=== PATIENT | male | born 1995 | race Caucasian/White ===

== ENCOUNTER 2019-06-16 07:17 | Emergency (ER) | payer SELFPAY ==
[2019-06-16 07:20] VITALS: BP 137/70; PULSE 100; RESP 20; TEMP 36.4; O2SAT 100
--- NOTE | 2019-06-16 07:50 | ED.GENADULT ---
HPI - General Adult General Chief complaint: Upper Respiratory Infection Stated complaint: sore throat fever Source: patient Mode of arrival: ambulatory Limitations: no limitations History of Present Illness HPI narrative: For the last 3 days has been waking up with a fullness in his upper chest which is relieved with burping up a burning liquid. Throughout the day he has similar burping episodes which have kept him from going to work yesterday and today. He's never had this before. Nothing makes it better or brings it on. In addition, for the past month he's had body aches, a sore throat and cough. He notices SOB with exertion. Related Data Home Medications Medication Instructions Recorded Confirmed No Home Medications 06/16/19 06/16/19 Review of Systems Constitutional: Constitutional: Denies chills and Denies fever(s) ENT: Denies nasal congestion Comments: lightheaded at times x 3 days. Cardiovascular: Cardiovascular: Denies chest pain Respiratory: Respiratory: Reports no additional respiratory complaints Gastrointestinal: Gastrointestinal: Denies abdominal pain, Denies heartburn, Denies diarrhea and Denies nausea Genitourinary: Genitourinary: Denies dysuria Musculoskeletal: Musculoskeletal: Reports no additional musculoskeletal complaints Integumentary/Breasts: Skin/Breast: Denies rash Psychiatric: Psychiatric: Reports anxiety Comments: anxiety does not keep him from functioning/going to work. 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 Cardio: Rhythm: regular rhythm GI: GI Palp: Yes Soft to palpation and No Guarding due to palpation present (GI) Other: minor epigastric tenderness Course Vital Signs Vital signs: Vital Signs Temperature 36.4 C 06/16/19 07:20 Pulse Rate 100 06/16/19 07:20 Respiratory Rate 20 06/16/19 07:20 Blood Pressure 137/70 06/16/19 07:20 Pulse Oximetry 100 06/16/19 07:20 Temperature 36.4 C 06/16/19 07:20 Pulse Rate 100 06/16/19 07:20 Respiratory Rate 20 06/16/19 07:20 Blood Pressure 137/70 06/16/19 07:20 Pulse Oximetry 100 06/16/19 07:20 Medical Decision Making MDM Narrative Medical decision making narrative: Discussed GERD and measures he can take to reduce. Differential Diagnosis Differential Diagnosis: Asthma, allergies, nausea and vomiting. Vital Signs Vital Signs: Vital Signs Temperature 36.4 C 06/16/19 07:20 Pulse Rate 100 06/16/19 07:20 Respiratory Rate 20 06/16/19 07:20 Blood Pressure 137/70 06/16/19 07:20 Pulse Oximetry 100 06/16/19 07:20 Temperature 36.4 C 06/16/19 07:20 Pulse Rate 100 06/16/19 07:20 Respiratory Rate 20 06/16/19 07:20 Blood Pressure 137/70 06/16/19 07:20 Pulse Oximetry 100 06/16/19 07:20 Lab Data Labs: Lab Results 06/16/19 Range/Units 07:36 Influenza Type A Ag Negative (Negative) Influenza Type B Ag Negative (Negative) Group B Strep Antigen Negative Discharge Plan Discharge Clinical Impression: GERD (gastroesoph
[2019-06-16 08:01] LABS: Influenza Control Valid (Valid)
== END 2019-06-16 08:17 | disposition home or self-care (01) ==
PROVIDERS: Emergency Provider Family Medicine; PCP Family Medicine
DX: K21.9 Gastro-esophageal reflux disease without esophagitis (principal)
CPT/HCPCS: 87081; 87804; 87880; 99282; 99283

== ENCOUNTER 2019-08-13 20:27 | Emergency (ER) | payer SELFPAY ==
--- NOTE | ~2019-08-13 | XR_ITS ---
XR hand RT min 3V, XR forearm RT 2V 08/13/2019 21:04 (accession [id number]), 08/13/2019 21:03 (accession [id number]) Indication: Right hand and arm pain after punching inanimate objects. Procedure: 4 views right hand and 2 views right forearm Comparison: No prior studies for comparison. Findings: There are healed right fourth and fifth metacarpal fractures. There is a small ossific dens ity along the ulnar aspect of the fifth carpometacarpal joint on the oblique view, suspicious for acu te avulsion fracture. Scaphoid intact. Radius and ulna within normal limits. No focal soft tissue abn ormality. Impression: 1: Small ossific density along the ulnar aspect of the fifth carpometacarpal joint on the oblique vie w, suspicious for acute avulsion fracture. 2: Healed right fourth and fifth metacarpal fractures. Reviewed, dictated and finalized at location A. Impression: 1: Small ossific density along the ulnar aspect of the fifth carpometacarpal charley int on the oblique view, suspicious for acute avulsion fracture. 2: Healed right fourth and fifth metacarpal fractures. Impression: 1: Small ossific density along the ulnar aspect of the fifth carpometacarpal charley int on the oblique view, suspicious for acute avulsion fracture. 2: Healed right fourth and fifth metacarpal fractures.
[2019-08-13 20:30] VITALS: BP 121/77; PULSE 72; RESP 20; TEMP 36.8; O2SAT 99
--- NOTE | 2019-08-13 20:38 | ED.UPPEXIN ---
HPI - Extremity Injury (Upper) General Chief Complaint: Extremity Injury, Upper Stated Complaint: rt arm pain Source: patient Mode of arrival: ambulatory Limitations: no limitations History of Present Illness HPI narrative: 23-year-old man comes in today complaining of pain over his right ulnar wrist and pain over his right 4th and 5th metacarpals. He also has abrasions over his knuckles on the right. He states that he punched issue at approximately noon today. He denies any numbness Or other injury. He denies prior hand injuries. 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 complaint: injury to: right, wrist and hand Other Extremity Injury: Right: hand and wrist Other injuries: none Handedness: right Place: home Severity: moderate Relieving factors: none Exacerbating factors: none, movement of extremity and other ( Palpation) Context: direct blow Associated symptoms: denies other symptoms Treatments prior to arrival: NSAIDS Related Data Home Medications Medication Instructions Recorded Confirmed No Home Medications 06/16/19 08/13/19 Allergies Allergy/AdvReac Type Severity Reaction Status Date / Time codeine Allergy Rash Verified 08/13/19 20:38 Review of Systems Constitutional: Constitutional: Denies chills and Denies fever(s) Eyes: Eyes: Denies change in vision and Denies photophobia ENT: Denies dysphagia, Denies nasal congestion and Denies sore throat Cardiovascular: Cardiovascular: Denies chest pain and Denies radiating jaw, neck or arm pain Respiratory: Respiratory: Denies cough, Denies dyspnea and Denies wheezing Gastrointestinal: Gastrointestinal: Denies abdominal pain, Denies nausea and Denies vomiting Neurologic: Denies vertigo, Denies dizziness and Denies syncope Psychiatric: Psychiatric: Denies anxiety and Denies depression Hematologic/Lymphatic: Hematologic/Lymphatic: Denies easy bleeding and Denies easy bruising Allergic/Immunologic: Allergic/Immunologic: Denies lip swelling and Denies wheezing PMFSH Past Medical History Medical History (Updated 08/13/19 @ 21:24 by Gregory Vazquez MD) Patient denies medical problems Surgical History Surgical History (Updated 08/13/19 @ 20:49 by Gregory Vazquez MD) History of dental surgery History of tonsillectomy Leg fracture, left Wrist fracture Family History Family History (Updated 06/16/19 @ 07:59 by Gregory Sawant MD) Mother Diabetes mellitus Social History Social History (Updated 08/13/19 @ 20:50 by Gregory Vazquez MD) Years smoked: 10 Smoking status: Current every day smoker Alcohol intake: never Alcohol use details: occasional Substance use type: marijuana Other substance usage details: once weekly Living arrangements: with family 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 Gender identity (if verbalized by the patient): Male Exam Const: General: healthy appearing and alert Orientation/consciousness: patient oriented x3 Limitations: no limitations Other: Mild acute distress HENMT: Mouth: Yes moist mucous membranes Throat: posterior oropharynx normal and uvula midline Eyes: Conjunctivae: conjunctivae normal Pupils: Equal, round and reactive pupils present EOM: EOMs intact bilaterally Resp: Effort & Inspection: normal respiratory effort and not labored Auscultation: no rales, no rhonchi and wheezes expiratory wheezes and scattered wheezes Cardio: Rate: regular rate Rhythm: regular rhythm Heart sounds: no murmurs Skin: General skin exam: normal color, no jaundice and no pallor Rashes: no rashes Neuro: General: patient oriented x3, moves all extremities, no focal motor deficits and CN's II-XI intact bilaterally Speech: normal speech Extrem: General: normal to inspection and no clubbing, cyanosis or edema Other: Several abrasions over the MCPs and the dorsum of the right hand. There is ecchymosis and swelling overlying the distal 4th metacarpal with minimal rotation o
[2019-08-13 21:30] VITALS: RESP 20
== END 2019-08-13 21:30 | disposition home or self-care (01) ==
PROVIDERS: Emergency Provider Emergency Medicine
DX: S60.511A Abrasion of right hand, initial encounter (principal); S60.221A Contusion of right hand, initial encounter; W22.8XXA Striking against or struck by other objects, initial encounter
CPT/HCPCS: 29125; 73090; 73130; 99282; 99283

== ENCOUNTER 2020-09-07 12:19 | Emergency (ER) | payer OTHER, SELFPAY ==
[2020-09-07 12:30] VITALS: BP 140/69; PULSE 87; RESP 16; TEMP 36.7; O2SAT 97
--- NOTE | 2020-09-07 12:30 | ED.SKABFB ---
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 He said he had been poking at it at home trying to get something out. complaint: foreign body Onset (ago): day(s) (3) Location: L hand (index finger acuna aspect proximal phalanx) Severity: moderate Quality: aching Pain Consistency: constant Relieving factors: none Exacerbating factors: none Associated symptoms: denies other symptoms Treatments prior to arrival: none Related Data Allergies Allergy/AdvReac Type Severity Reaction Status Date / Time codeine Allergy Rash Verified 08/13/19 20:38 Review of Systems Review of Systems: All systems reviewed & are unremarkable except as noted in HPI and below Constitutional: Constitutional: Denies chills and Denies fever(s) PMFSH Past Medical History Medical History Patient denies medical problems Surgical History Surgical History History of dental surgery History of tonsillectomy Leg fracture, left Wrist fracture Family History Family History Mother Diabetes mellitus Social History Social History (Updated 09/07/20 @ 12:31 by Jeremie Cervantes MD) Smoking packs per day: 2 Smoking cigarettes per day: 40.0 Years smoked: 10 Smoking pack-years: 20.00 Smoking status: Current every day smoker Alcohol intake: never Substance use type: marijuana Other substance usage details: once weekly 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 Gender identity (if verbalized by the patient): Male Exam Const: General: healthy appearing and no acute distress Nutritional Appearance: well nourished Orientation/consciousness: patient oriented x3 HENMT: Head: normal to inspection Ears: external ears normal Eyes: Conjunctivae: conjunctivae normal Pupils: Equal, round and reactive pupils present EOM: EOMs intact bilaterally Neck: Neck: normal visual inspection Resp: Effort & Inspection: normal respiratory effort Auscultation: clear to auscultation bilaterally Cardio: Rate: regular rate Rhythm: regular rhythm GI: Auscultation: normal bowel sounds Back/Spine/Pelvis: Cervical Spine: cervical ROM normal Thoracic/Lumbar Spine: thoraco-lumbar ROM normal Skin: General skin exam: normal color Rashes: no rashes Wounds: wounds noted Other: Patient has a hematoma on his left palmar aspect of his proximal phalanx with moderate tenderness and some sanguinous discharge. I am unable to see any possible foreign body. There is some swelling but no fluctuance appreciated. Neuro: General: patient oriented x3, moves all extremities, no meningeal signs and no focal motor deficits Speech: normal speech Gait exam (Neuro): Normal gait present Extrem: General: normal to inspection and no clubbing, cyanosis or edema Psych: Appearance: grossly normal and well kempt Mental Status: mental status grossly normal Affect: normal affect Attitude: cooperative Thought content: Yes Normal thought content present Procedures Abscess I/D hand: Date of Incision: 09/07/20 Side (if applicable): left Local Anesthetic: lidocaine 1% Amount of anesthesia used (mL): 3 Technique: incised with #11 blade Irrigation: No Packing used?: none I&D Results: Blood and Other ( No foreign body could be found) Discharge Plan Discharge Clinical Impression: Abscess of skin or subcutaneous tissue Qualifiers: Site of cutaneous abscess: extremity Site of cutaneous abscess of extremity: hand
[2020-09-07] MEDS: LIDOCAINE HCL 1% LOCAL INJ 20 ML VIAL INFILTRATE (12:46)
[2020-09-07 12:47] VITALS: PULSE 85; RESP 14; O2SAT 98
== END 2020-09-07 12:50 | disposition home or self-care (01) ==
PROVIDERS: Emergency Provider Emergency Medicine
DX: L02.512 Cutaneous abscess of left hand (principal)
CPT/HCPCS: 26010; 99283; A9270

== ENCOUNTER 2020-09-20 09:39 | Emergency (ER) | payer OTHER, SELFPAY ==
[2020-09-20 10:05] VITALS: BP 125/86; PULSE 96; RESP 16; TEMP 37; O2SAT 96
--- NOTE | 2020-09-20 10:18 | PC.NURSE ---
during physical assessment with erp, it was noted that patient seemed very anxious and tearful. pt explains he has had some recent stress and states ganesh just lost everything . pt denies suicidal or homicidal ideations and denies carrying any weapons at this time
--- NOTE | 2020-09-20 10:24 | ED.URI ---
HPI - URI/Sore Throat General Chief Complaint: Upper Respiratory Infection Stated Complaint: cough and coughing up mucus Source: patient Mode of arrival: ambulatory Limitations: no limitations History of Present Illness HPI Narrative: 24 yo male who presents with cough. He states that he smokes 3-4 ppd, and doesnt feel ill. However he said if he doesnt get a covid test his landlord is going to kick him out. He states he is depressed, but denies SI or HI. he has some mild aches, but states that is pretty normal for him, and the low energy level is due to his chronic depression. MD elicited complaint: cough Pertinent past history: COPD Consistency: constant Severity: mild Description of mucous: green Able to tolerate fluids by mouth: Yes Exacerbating factors: nothing Relieving factors: nothing Associated symptoms: denies other symptoms and shortness of breath Treatments prior to arrival: none Related Data Home Medications Medication Instructions Recorded Confirmed No Home Medications 09/20/20 09/20/20 Allergies Allergy/AdvReac Type Severity Reaction Status Date / Time codeine Allergy Rash Verified 08/13/19 20:38 Review of Systems Constitutional: Constitutional: Denies chills, Reports fatigue, Denies fever(s) and Denies weakness Eyes: Eyes: Reports no additional eye complaints ENT: Reports system reviewed and no additional complaints, except as documented Cardiovascular: Cardiovascular: Reports no additional cardiovascular complaints Respiratory: Respiratory: Denies chest congestion, Reports cough, Denies dyspnea and Denies wheezing Gastrointestinal: Gastrointestinal: Reports no additional gastrointestinal complaints Genitourinary: Genitourinary: Reports no additional male genitourinary complaints Neurologic: Reports system reviewed and no additional complaints, except as documented Psychiatric: Psychiatric: Reports no additional psychiatric complaints Endocrine: Endocrine: Reports no additional endocrine complaints Hematologic/Lymphatic: Hematologic/Lymphatic: Reports no additional hematologic/lymphatic complaints Allergic/Immunologic: Allergic/Immunologic: Reports no additional allergic/immunologic complaints 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 Gender identity (if verbalized by the patient): Male Exam Const: General: healthy appearing, no acute distress and alert Nutritional Appearance: well nourished Orientation/consciousness: patient oriented x3 Eyes: Pupils: Equal, round and reactive pupils present Neck: Neck: normal visual inspection Chest: Chest palpation & inspection: normal inspection of the chest Resp: Effort & Inspection: normal respiratory effort Auscultation: wheezes (occasional) Cardio: Rate: regular rate GI: GI Palp: Yes Soft to palpation, No Tenderness to palpation present (GI) and No Guarding due to palpation present (GI) Back/Spine/Pelvis: Back: no CVA tenderness Skin: General skin exam: normal color Rashes: no rashes Neuro: General: patient oriented x3 and moves all extremities Extrem: General: normal to inspection Psych: Appearance: disheveled Affect: Anxious affec
[2020-09-20 10:50] LABS: SARS-CoV-2 Ag Negative (Negative)
[2020-09-20 11:01] VITALS: PULSE 90; RESP 15; O2SAT 97
== END 2020-09-20 11:03 | disposition home or self-care (01) ==
PROVIDERS: Emergency Provider Emergency Medicine
DX: R05 Cough (principal); Z20.822 Contact with and (suspected) exposure to COVID-19
CPT/HCPCS: 87426; 99282; 99283; C9803

== ENCOUNTER 2021-12-31 07:59 | Emergency (ER) | payer OTHER, SELFPAY ==
--- NOTE | ~2021-12-31 | XR_ITS ---
EXAMINATION: XR chest 2V DATE: 12/31/2021 08:29 INDICATION: Right upper chest pain. Cough. Shortness of breath. TECHNIQUE: Frontal and lateral views of the chest were obtained. COMPARISON: None. FINDINGS: The chest demonstrates clear lungs without pneumonia, pleural effusion, or pneumothorax. Th e heart size is normal. IMPRESSION: 1. No acute cardiopulmonary disease. Reviewed, dictated and finalized at location A.
[2021-12-31 08:05] VITALS: BP 133/80; PULSE 102; RESP 18; TEMP 36.4; O2SAT 96
--- NOTE | 2021-12-31 08:16 | ED.CHESTPAIN ---
HPI - Chest Pain General Chief Complaint: Chest Pain Stated Complaint: CHEST PAIN DIZZY Time Seen by Provider: 12/31/21 08:16 Source: patient and RN notes reviewed Mode of arrival: ambulatory Limitations: no limitations History of Present Illness HPI narrative: Patient states that he has been having some chest pressure. He continues smoke 3 packs per day. He says he has a history of COPD and that he has run out of his inhalers. complaint: chest discomfort Onset (ago): day(s) (6) Timing of current episode: constant Prior episodes: No Onset: during rest Pain location: other ( Entire chest) Pain radiation: none Severity: mild Quality: heaviness Relieving factors: nothing Exacerbating factors: nothing Context: recent illness Associated symptoms: fever and cough Treatment prior to arrival: none Risk Factors Coronary artery disease risk factors: smoking history Thoracic aortic dissection risk factors: none Related Data Allergies Allergy/AdvReac Type Severity Reaction Status Date / Time codeine Allergy Rash Verified 12/31/21 08:13 Penicillins Allergy Unknown Verified 12/31/21 08:13 Review of Systems Review of Systems: All systems reviewed & are unremarkable except as noted in HPI and below Constitutional: Constitutional: Reports chills and Reports fever(s) PMFSH Past Medical History Medical History Patient denies medical problems Surgical History Surgical History History of dental surgery History of tonsillectomy Leg fracture, left Wrist fracture Family History Family History Mother Diabetes mellitus Social History Social History Smoking packs per day: 3 Smoking cigarettes per day: 60.0 Years smoked: 10 Smoking pack-years: 30.00 Smoking status: Current every day smoker Alcohol intake: never Alcohol use details: occasional Substance use type: marijuana Other substance usage details: once weekly 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 Gender identity (if verbalized by the patient): Male Exam Const: General: healthy appearing, no acute distress and alert Nutritional Appearance: well nourished Orientation/consciousness: patient oriented x3 Limitations: no limitations HENMT: Head: normal to inspection Ears: external ears normal Eyes: Conjunctivae: conjunctivae normal Pupils: Equal, round and reactive pupils present EOM: EOMs intact bilaterally Neck: Neck: normal visual inspection Resp: Effort & Inspection: normal respiratory effort Auscultation: rhonchi throughout Cardio: Rate: regular rate Rhythm: regular rhythm Heart sounds: no murmurs GI: GI Palp: Yes Soft to palpation and No Tenderness to palpation present (GI) Auscultation: normal bowel sounds Back/Spine/Pelvis: Cervical Spine: cervical ROM normal Thoracic/Lumbar Spine: thoraco-lumbar ROM normal Skin: General skin exam: normal color Rashes: no rashes Neuro: General: patient oriented x3, moves all extremities, no focal motor deficits and CN's II-XI intact bilaterally Speech: normal speech Gait exam (Neuro): Normal gait present Extrem: General: normal to inspection and no clubbing, cyanosis or edema Psych: Mental Status: mental status grossly normal Affect: normal affect Attitude: cooperative Course Course Emergency Course: patient improved after 4 puffs albuterol inhaler through a spacer. He is given 125 mg of Solu-Medrol. He is encouraged to get his inhalers filled and follow up with his primary care for smoking cessation and further treatment of his COPD. Vital Signs Vital signs: Vital Signs Temperature 36.4 C L 12/31/21 08:05 Pulse Rate 102 H 12/31/21 08:05 Respiratory Rate 18 12/31/21 08:05 Blood Pressure 133/80 12/31/21 08:05 Pulse Oximetry 96
--- NOTE | 2021-12-31 08:19 | ECG_ITS ---
Measurements Intervals [place] Rate: 104 P: 117 SC: 132 QRS: 88 QRSD: 96 T: 186 QT: 349 QTc: 459 Interpretive Statements SINUS TACHYCARDIA NONSPECIFIC ST-T CHANGES NO PREVIOUS ECG AVAILABLE FOR COMPARISON Electronically Signed On 12-31-2021 20:05:04 CDT by Ashley Vogt M.D.
[2021-12-31 08:51] LABS: Hematocrit 47.1 % (40.0-54.0); Hemoglobin 15.9 g/dL (14.0-18.0); Immature Platelet Fraction Pct 16.9 % (1.0-7.0); Mean Corpuscular HGB Conc 33.8 g/dL (32.0-36.0); Mean Corpuscular Volume 88.9 fL (78.0-102.0); Mean Platelet Volume 12.6 fl (8.7-11.0); Platelet Count Result 90 K/mm3 (150-420); Red Cell Distribution Width 12.6 % (11.6-14.4); White Blood Count 5.6 K/mm3 (4.8-10.8)
[2021-12-31 09:03] VITALS: BP 129/74; PULSE 82; RESP 16; O2SAT 97
[2021-12-31 09:08] LABS: Lactic Acid Reflex 0.8 mmol/L (0.4-2.0)
[2021-12-31 09:11] LABS: Alanine Aminotransferase 16 U/L (16-63); Alkaline Phosphatase 73 U/L (46-116); Anion Gap 9 mmol/L (8-16); Aspartate Amino Transferase 15 U/L (15-37); Blood Urea Nitrogen 12 mg/dL (7-18); Calcium 9.4 mg/dL (8.5-10.1); Carbon Dioxide 26 mmol/L (21-32); Chloride 102 mmol/L (98-108); Estimated CRCL calculation 106 ml/min; Estimated Glomerular Filt Rate > 60; Glucose 95 mg/dL (70-99); Osmolality Calculated 283 mOsm/kg (285-295); Potassium 3.4 mmol/L (3.5-5.1); Sodium 137 mmol/L (136-145); Total Protein 8.1 g/dL (6.4-8.2); Troponin I 5.4 ng/L (0.00-60.4)
[2021-12-31 09:11] LABS: Band Neutrophils Percent 0 % (0-6); Basophils Percent Manual 0 % (0-1); Eosinophils Percent Manual 0 % (1-6); Lymphocytes Absolute Manual 1.56 K/mm3 (1.1-4.5); Lymphocytes Percent Manual 28 % (18-44); Monocytes Absolute Manual 0.78 K/mm3 (0.1-0.90); Monocytes Percent Manual 14 % (3-9); Neutrophils Absolute Manual 3.24 K/mm3 (1.3-6.7); Neutrophils Percent Manual 58 % (46-73); Platelet Estimate Decreased (Adequate); Total Cells Counted 100
[2021-12-31 09:13] LABS: CRP 3.2 mg/dL (0.0-0.9)
[2021-12-31 09:22] VITALS: PULSE 70; RESP 18; O2SAT 94
[2021-12-31] MEDS: ALBUTEROL SULFATE (*SP) INHALER 4 PUFF INHALATION (09:22)
[2021-12-31 09:24] VITALS: PULSE 74; RESP 18; O2SAT 94
[2021-12-31] MEDS: methylPREDNISolone SOD SUCC 125 MG VIAL IM (09:33)
[2021-12-31 09:50] VITALS: BP 123/72; PULSE 70; RESP 16; O2SAT 96
== END 2021-12-31 09:50 | disposition home or self-care (01) ==
PROVIDERS: Emergency Provider Emergency Medicine
DX: J44.1 Chronic obstructive pulmonary disease with (acute) exacerbation (principal); F17.200 Nicotine dependence, unspecified, uncomplicated
CPT/HCPCS: 36415; 71046; 80053; 83605; 84484; 85025; 85055; 85380; 86140; 87040; 93005; 94640; 96372; 99284; A9270; J2930

== ENCOUNTER 2022-04-12 07:46 | Emergency (ER) | payer OTHER, SELFPAY ==
--- NOTE | ~2022-04-12 | XR_ITS ---
EXAMINATION: XR chest 2V DATE: 04/12/2022 08:51 INDICATION: Cough and fever. TECHNIQUE: Frontal and lateral views of the chest were obtained on 3 radiographs. COMPARISON: Chest 2 views 12/31/2021 FINDINGS: There is no pneumonia, pleural effusion, pneumothorax. The heart size is normal. IMPRESSION: 1. No acute cardiopulmonary disease. Reviewed, dictated and finalized at location A. ILE GRINDER
[2022-04-12 07:57] VITALS: BP 148/83; PULSE 121; RESP 18; TEMP 37.2; O2SAT 99
--- NOTE | 2022-04-12 08:07 | ED.URI ---
HPI - URI/Sore Throat General Chief Complaint: Upper Respiratory Infection Stated Complaint: cough, diarrhea, chest pain yesterday, dizzy Time Seen by Provider: 04/12/22 07:50 Source: patient and RN notes reviewed Mode of arrival: ambulatory Limitations: no limitations History of Present Illness MD elicited complaint: fever, cough and sore throat Onset (ago): week(s) (1) Consistency: constant Severity: moderate Description of mucous: yellow Able to tolerate fluids by mouth: Yes Exacerbating factors: nothing Relieving factors: nothing Context: sick contacts and other(s) with similar symptoms Associated symptoms: fever (102), chills, myalgias, headache and sore throat Treatments prior to arrival: acetaminophen and cold medicine Related Data Allergies Allergy/AdvReac Type Severity Reaction Status Date / Time codeine Allergy Rash Verified 04/12/22 08:14 Penicillins Allergy Unknown Verified 04/12/22 08:14 Review of Systems Review of Systems: All systems reviewed & are unremarkable except as noted in HPI and below PMFSH Past Medical History Medical History (Updated 04/12/22 @ 09:56 by Jeremie Cervantes MD) COPD (chronic obstructive pulmonary disease) Surgical History Surgical History History of dental surgery History of tonsillectomy Leg fracture, left Wrist fracture Family History Family History Mother Diabetes mellitus Social History Social History Smoking packs per day: 3 Smoking cigarettes per day: 60.0 Years smoked: 10 Smoking pack-years: 30.00 Smoking status: Current every day smoker Alcohol intake: never Alcohol use details: occasional Substance use type: marijuana Other substance usage details: once weekly 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 Gender identity (if verbalized by the patient): Male Exam Const: General: healthy appearing, no acute distress and alert Nutritional Appearance: well nourished and obese morbidly obese Orientation/consciousness: patient oriented x3 Limitations: no limitations HENMT: Head: normal to inspection Ears: external ears normal Eyes: Conjunctivae: conjunctivae normal Pupils: Equal, round and reactive pupils present EOM: EOMs intact bilaterally Neck: Neck: normal visual inspection Resp: Effort & Inspection: normal respiratory effort Auscultation: rhonchi right lower and wheezes scattered wheezes and anterior Cardio: Rhythm: regular rhythm GI: GI Palp: Yes Soft to palpation and No Tenderness to palpation present (GI) Auscultation: normal bowel sounds Back/Spine/Pelvis: Cervical Spine: cervical ROM normal Thoracic/Lumbar Spine: thoraco-lumbar ROM normal Skin: General skin exam: normal color Rashes: no rashes Neuro: General: patient oriented x3, moves all extremities, no focal motor deficits and CN's II-XI intact bilaterally Speech: normal speech Gait exam (Neuro): Normal gait present Extrem: General: normal to inspection and no clubbing, cyanosis or edema Psych: Mental Status: mental status grossly normal Affect: normal affect Attitude: cooperative Course Vital Signs Vital signs: Vital Signs Temperature 37.2 C 04/12/22 07:57 Pulse Rate 121 H 04/12/22 07:57 Respiratory Rate 18 04/12/22 07:57 Blood Pressure 148/83 H 04/12/22 07:57 Pulse Oximetry 99 04/12/22 07:57 Oxygen Delivery Room Air 04/12/22 07:57 Temperature 36.8 C 04/12/22 09:55 Pulse Rate 84 04/12/22 09:55 Respiratory Rate 18 04/12/22 09:55 Blood Pressure 139/72 04/12/22 09:55 Pulse Oximetry 98 04/12/22 09:55 Oxygen Delivery Room Air 04/12/22 09:55 MDM - URI/Sore Throat MDM Narrative Medical decision making narrative: patient has symptoms for COVID, influenza, or other upper respiratory infection. With his history of COPD and scatter
[2022-04-12 09:05] LABS: Influenza A QL RT-PCR Positive (Negative); Influenza B QL RT-PCR Negative (Negative); SARS-CoV-2 RNA PCR Negative (Negative)
[2022-04-12 09:55] VITALS: BP 139/72; PULSE 84; RESP 18; TEMP 36.8; O2SAT 98
== END 2022-04-12 10:10 | disposition home or self-care (01) ==
PROVIDERS: Emergency Provider Emergency Medicine
DX: J11.1 Influenza due to unidentified influenza virus with other respiratory manifestations (principal); Z20.822 Contact with and (suspected) exposure to COVID-19
CPT/HCPCS: 71046; 87502; 99283; U0003; U0005

== ENCOUNTER 2022-05-27 01:13 | Emergency (ER) | payer OTHER, SELFPAY ==
[2022-05-27 01:15] VITALS: BP 142/84; PULSE 89; RESP 20; TEMP 36.6; O2SAT 97
--- NOTE | 2022-05-27 01:35 | ED.BACK ---
HPI - Back Pain/Injury General Chief Complaint: Back Pain/Injury Stated Complaint: Radiating Pain in both legs Time Seen by Provider: 05/27/22 01:35 History of Present Illness HPI Narrative: 26-year-old male patient is here with complaints of low back pain that radiates down his left buttock into the thigh for the last 1 week. He relates the to the pain starting after doing some heavy duty lifting and squatting. The patient has not seen doctor for this the because he states he is stubborn . Patient has taken no medications however he does take marijuana daily and also smokes 2-3 packs of cigarettes daily. He denies any other recreational drugs on routine medications except for albuterol which she uses as needed for early COPD. The patient denies any trouble with the bowel or bladder function. He denies any incontinence. He denies any numbness or tingling to the lower extremities. Related Data Allergies Allergy/AdvReac Type Severity Reaction Status Date / Time codeine Allergy Rash Verified 04/12/22 08:14 Penicillins Allergy Unknown Verified 04/12/22 08:14 Review of Systems Review of Systems: All systems reviewed & are unremarkable except as noted in HPI and below Constitutional: Constitutional: Reports no additional constitutional complaints Eyes: Eyes: Reports no additional eye complaints ENT: Reports system reviewed and no additional complaints, except as documented Cardiovascular: Cardiovascular: Reports no additional cardiovascular complaints Respiratory: Respiratory: Reports no additional respiratory complaints Gastrointestinal: Gastrointestinal: Reports no additional gastrointestinal complaints Genitourinary: Genitourinary: Reports no additional male genitourinary complaints Musculoskeletal: Musculoskeletal: Reports no additional musculoskeletal complaints Integumentary/Breasts: Skin/Breast: Reports system reviewed and no additional complaints, except as docu Neurologic: Reports system reviewed and no additional complaints, except as documented Psychiatric: Psychiatric: Reports no additional psychiatric complaints Endocrine: Endocrine: Reports no additional endocrine complaints Hematologic/Lymphatic: Hematologic/Lymphatic: Reports no additional hematologic/lymphatic complaints Allergic/Immunologic: Allergic/Immunologic: Reports no additional allergic/immunologic complaints [facility] Past Medical History Medical History COPD (chronic obstructive pulmonary disease) Surgical History Surgical History History of dental surgery History of tonsillectomy Leg fracture, left Wrist fracture Family History Family History Mother Diabetes mellitus Social History Social History Smoking packs per day: 3 Smoking cigarettes per day: 60.0 Years smoked: 10 Smoking pack-years: 30.00 Smoking status: Current every day smoker Alcohol intake: never Alcohol use details: occasional Substance use type: marijuana Other substance usage details: once weekly Living arrangements: with family 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 The patient is in mild discomfort but no acute distress. Vital signs are noted to be stable with exception of blood pressure on the high end of 142/84. The patient does not take any medications for any blood pressure, he is afebrile. HEENT: Normocephalic. Severe dental caries otherwise unremarkable ear nose and throat. Neck is supple. No tenderness. . Chest wall is nontender. Breath sounds are audible bilaterally and there are scattered wheezes worse with coughing. Heart tones are regular. Abdome
[2022-05-27] MEDS: ORPHENADRINE CITRATE 30 MG/ML 2 ML VIAL 60 MG IM (01:50)
[2022-05-27] MEDS: KETOROLAC (*BKC) 60 MG/2 ML VIAL IM (01:54)
[2022-05-27 02:10] VITALS: BP 134/82; PULSE 81; RESP 18; TEMP 36.6; O2SAT 98
== END 2022-05-27 02:14 | disposition home or self-care (01) ==
PROVIDERS: Emergency Provider Emergency Medicine
DX: M54.42 Lumbago with sciatica, left side (principal); J44.9 Chronic obstructive pulmonary disease, unspecified; F17.210 Nicotine dependence, cigarettes, uncomplicated
CPT/HCPCS: 96372; 99284; J1885; J2360

== ENCOUNTER 2022-06-11 07:48 | Outpatient (CLI) | payer OTHER, SELFPAY ==
--- NOTE | ~2022-06-11 | MR_ITS ---
EXAMINATION: MR lumbar spine wo con DATE: 06/11/2022 09:15 INDICATION: Left-sided lumbar radiculopathy. Low back pain. TECHNIQUE: Magnetic resonance imaging (MRI) of the lumbar spine was performed without intravenous con trast. COMPARISON: None FINDINGS: There is 6 degrees levocurvature of lumbar spine. There is mild chronic anterior wedging of T11 and T12 vertebral bodies. There are Schmorl's nodes at many levels. There is mildly decreased di sc height at T11-T12. The osseous central spinal canal is developmentally small. The distal spinal co rd signal intensity is normal. The conus medullaris is at L1. The following disc levels are specifica lly discussed: T11-T12: There is a central extrusion. There is mild bilateral facet joint osteoarthritis. There is m ild left neural foraminal stenosis. There is mild central canal stenosis. T12-L1: The disc does not extend beyond the endplate margin. There is mild bilateral facet joint oste oarthritis. There is no neural foraminal stenosis. There is no central canal stenosis. L1-L2: The disc does not extend beyond the endplate margin. There is mild bilateral facet joint osteo arthritis. There is no neural foraminal stenosis. There is mild central canal stenosis. L2-L3: The disc does not extend beyond the endplate margin. There is mild left facet joint osteoarthr itis. There is no neural foraminal stenosis. There is mild central canal stenosis. L3-L4: The disc does not extend beyond the endplate margin. There is mild bilateral facet joint osteo arthritis. There is no neural foraminal stenosis. There is mild central canal stenosis. L4-L5: The disc does not extend beyond the endplate margin. There is mild bilateral facet joint osteo arthritis. There is no neural foraminal stenosis. There is mild central canal stenosis. L5-S1: There is a central extrusion. There is mild lateral facet joint osteoarthritis. There is mild right neural foraminal stenosis. There is mild central canal stenosis. IMPRESSION: 1. Mild lumbar spondylosis. Reviewed, dictated and finalized at location A. [employer]IC MAINTENANCE SUPERVISOR IMPRESSION: 1. Mild lumbar spondylosis.
== END 2022-06-11 07:49 | disposition home or self-care (01) ==
LOC: CHSIMG 07:49
PROVIDERS: PCP Physician Assistant; Visit Provider Physician Assistant
DX: M54.16 Radiculopathy, lumbar region (principal); M43.06 Spondylolysis, lumbar region
CPT/HCPCS: 72148

== ENCOUNTER 2022-06-28 16:45 | Emergency (ER) | payer OTHER, SELFPAY ==
--- NOTE | ~2022-06-28 | CT_ITS ---
EXAMINATION: CT abdomen pelvis wo con DATE: 06/28/2022 17:47 INDICATION: left flank pain TECHNIQUE: Computed tomography (CT) of the abdomen and pelvis was performed without intravenous contr ast. Automated exposure control and iterative reconstruction technique were employed. The dose-length product was 1389.51 mGy-cm. COMPARISON: None. FINDINGS: Lower thorax: Unremarkable Liver: Normal. Biliary/Gallbladder: Gallbladder is normal. No bile duct dilation. Pancreas: No mass or duct dilation. Spleen: Normal. Adrenals:No mass. Kidneys: No mass, stone, or hydronephrosis. GI tract: No small or large bowel dilation. Normal appendix. Mesentery/Peritoneum: No ascites, mass, or free air. Retroperitoneum: No mass. Pelvis: Pelvic organs are within normal limits. Soft Tissues: Soft tissues and body wall unremarkable. Bones: No acute osseous finding. IMPRESSION: No acute abdominopelvic process detected Reviewed, dictated and finalized at location K. LIFT OPERATOR
[2022-06-28 16:56] VITALS: BP 126/66; PULSE 98; RESP 18; TEMP 37.5; O2SAT 100
--- NOTE | 2022-06-28 16:56 | ED.MALEGU ---
HPI - Male Genitourinary General Chief complaint: Urogenital-Male Stated complaint: burning when he pees, L hip pain Time Seen by Provider: 06/28/22 16:47 Source: patient and RN notes reviewed Mode of arrival: ambulatory Limitations: no limitations History of Present Illness HPI Narrative: patient has been having low back pain for the last month and pain in his left knee and hip. He has been to [address] scan an outpatient MRI. He has had a couple of prescriptions for hydrocodone. Today his pain seemed to get worse on the left side. Seemed to be more in his left flank and he states he is having some burning with urination. He denies any fever chills. Denies any nausea vomiting. MD Complaint: dysuria Onset (ago): day(s) (1) Duration: constant Location: left flank Severity: moderate Quality: aching and dull Relieving factors: none Exacerbating factors: urination Associated symptoms: Reports other ( lightheaded) Related Data Sexually active: Yes Home Medications Medication Instructions Recorded Confirmed hydrocodone 10 mg-acetaminophen tablet 06/28/22 06/28/22 325 mg tablet Allergies Allergy/AdvReac Type Severity Reaction Status Date / Time codeine Allergy Rash Verified 06/28/22 17:04 Penicillins Allergy Unknown Verified 06/28/22 17:04 Review of Systems Review of Systems: All systems reviewed & are unremarkable except as noted in HPI and below PMFSH Past Medical History Medical History COPD (chronic obstructive pulmonary disease) Surgical History Surgical History History of dental surgery History of tonsillectomy Leg fracture, left Wrist fracture Family History Family History Mother Diabetes mellitus Social History Social History Smoking packs per day: 3 Smoking cigarettes per day: 60.0 Years smoked: 10 Smoking pack-years: 30.00 Smoking status: Current every day smoker Alcohol intake: never Alcohol use details: occasional Substance use type: marijuana Other substance usage details: once weekly Living arrangements: with family 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 Gender identity (if verbalized by the patient): Male Exam Const: General: ill appearing acutely Nutritional Appearance: obese morbidly obese Limitations: no limitations HENMT: Head: normal to inspection Face and sinus: normal facial exam Eyes: Conjunctivae: conjunctivae normal Pupils: Equal, round and reactive pupils present EOM: EOMs intact bilaterally Neck: Neck: normal visual inspection Resp: Effort & Inspection: normal respiratory effort Auscultation: clear to auscultation bilaterally Cardio: Rate: regular rate Rhythm: regular rhythm GI: GI Palp: Yes Soft to palpation and No Tenderness to palpation present (GI) Auscultation: normal bowel sounds Back/Spine/Pelvis: Back: CVA tenderness ( moderate on the left) Cervical Spine: cervical ROM normal Thoracic/Lumbar Spine: thoraco-lumbar ROM normal Skin: General skin exam: normal color Rashes: no rashes Neuro: General: patient oriented x3, moves all extremities and no focal motor deficits Cranial nerves: Yes CN's II-XII intact bilaterally Speech: normal speech Gait exam (Neuro): Normal gait present Extrem: General: normal to inspection and no clubbing, cyanosis or edema Psych: Mental Status: mental status grossly normal Affect: normal affect Attitude: cooperative Course Vital Signs Vital signs: Vital Signs Temperature 37.5 C 06/28/22 16:56 Pulse Rate 98 06/28/22 16:56 Respiratory Rate 18 06/28/22 16:56 Blood Pressure 126/66 06/28/22 16:56 Pulse Oximetry 100 06/28/22 16:56 Oxygen Delivery Room Air 06/28/22 16:56 Temperature 37.5 C 06/28/22 16:56 Pulse Rate
--- NOTE | 2022-06-28 17:13 | PC.NURSE ---
Pt not a good historian about his home medications, unable to confirm all of them.
[2022-06-28] MEDS: KETOROLAC (*BKC) 60 MG/2 ML VIAL IM (17:25)
[2022-06-28 17:30] LABS: Basophils Absolute Auto 0.04 K/mm3 (0.00-0.10); Basophils Percent Auto 0.7 % (0.0-1.0); Eosinophils Absolute Auto 0.16 K/mm3 (0.02-0.50); Eosinophils Percent Auto 2.8 % (1.0-6.0); Hematocrit 46.9 % (40.0-54.0); Hemoglobin 15.9 g/dL (14.0-18.0); Immature Granulocyte Absolute 0.02 K/mm3 (0.00-0.00); Immature Granulocyte Percent A 0.4 % (0.0-0.0); Immature Platelet Fraction Pct 15.2 % (1.0-7.0); Lymphocytes Absolute Auto 1.84 K/mm3 (1.10-4.50); Lymphocytes Percent Auto 32.3 % (18.0-42.0); Mean Corpuscular HGB Conc 33.9 g/dL (32.0-36.0); Mean Corpuscular Hemoglobin 30.6 pg (27.0-31.0); Mean Corpuscular Volume 90.2 fL (78.0-102.0); Mean Platelet Volume 12.3 fl (8.7-11.0); Monocytes Absolute Auto 0.53 K/mm3 (0.10-0.90); Monocytes Percent Auto 9.3 % (2.0-11.0); Neutrophils Absolute Auto 3.1 K/mm3 (1.7-7.2); Neutrophils Percent Auto 54.5 % (50.0-70.0); Platelet Count Result 90 K/mm3 (150-420); Red Cell Distribution Width 13.3 % (11.6-14.4); White Blood Count 5.7 K/mm3 (4.8-10.8)
[2022-06-28 17:37] LABS: Appearance Urine Clear (Clear); Bilirubin Urine Negative (Negative); Blood Urine Negative (Negative); Color Urine Light Yellow (Yellow); Glucose Urine UA Negative (Negative); Ketones Urine Negative (Negative); Leukocyte Esterase Ur Negative LEU/UL (Negative); Nitrate Urine Negative (Negative); Protein Urine Negative (Negative); Specific Grav Ur 1.025 (1.010-1.020); Urobilinogen Urine 0.2 mg/dL (0.2-1.0)
[2022-06-28 17:39] LABS: Add Urine Microscopic? NO
[2022-06-28 17:43] LABS: Alanine Aminotransferase 37 U/L (16-63); Albumin Level 3.9 g/dL (3.4-5.0); Alkaline Phosphatase 65 U/L (46-116); Anion Gap 7 mmol/L (8-16); Aspartate Amino Transferase 22 U/L (15-37); Bilirubin,Total 0.3 mg/dL (0.00-1.00); Blood Urea Nitrogen 10 mg/dL (7-18); Calcium 9.3 mg/dL (8.5-10.1); Carbon Dioxide 30 mmol/L (21-32); Chloride 104 mmol/L (98-108); Estimated CRCL calculation 126 ml/min; Estimated Glomerular Filt Rate > 60; Glucose 87 mg/dL (70-99); Osmolality Calculated 290 mOsm/kg (285-295); Potassium 3.6 mmol/L (3.5-5.1); Sodium 141 mmol/L (136-145); Total Protein 7.8 g/dL (6.4-8.2)
[2022-06-28 17:44] LABS: CRP < 0.5 mg/dL (0.0-0.9)
[2022-06-28 17:55] VITALS: BP 141/69; PULSE 79; RESP 18; O2SAT 100
--- NOTE | 2022-06-28 18:13 | PC.NURSE ---
Reassessed pt and took more vitals, pt states his arm and body is heavy now, that it was light when he came in but now it's heavy, stated something is wrong, pt stated he does have anxiety and is supposed to be on medication for it but does not take it because of side effects, instead smokes weed but states it also does not help.
== END 2022-06-28 18:24 | disposition home or self-care (01) ==
PROVIDERS: Emergency Provider Emergency Medicine; PCP Physician Assistant
DX: M54.50 Low back pain, unspecified (principal); J44.9 Chronic obstructive pulmonary disease, unspecified; F17.210 Nicotine dependence, cigarettes, uncomplicated; Z79.891 Long term (current) use of opiate analgesic
CPT/HCPCS: 36415; 74176; 80053; 81003; 85025; 85055; 86140; 96372; 99284; J1885

== ENCOUNTER 2023-03-19 06:02 | Emergency (ER) | payer OTHER, SELFPAY ==
[2023-03-19 06:13] VITALS: BP 115/58; PULSE 106; RESP 20; TEMP 36.9; O2SAT 96
[2023-03-19 06:15] VITALS: BP 115/58; PULSE 107; RESP 18; TEMP 36.9; O2SAT 97
--- NOTE | 2023-03-19 06:17 | ED.WOUNDLAC ---
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 Onset (ago): day(s) Extremity Location: Left: hand (Swollen red tender with blisters in between his thumb and index finger of left) Place: home Patient tetanus UTD: No Related Data Allergies Allergy/AdvReac Type Severity Reaction Status Date / Time codeine Allergy Rash Verified 06/28/22 17:04 Penicillins Allergy Unknown Verified 06/28/22 17:04 Review of Systems Review of Systems: All systems reviewed & are unremarkable except as noted in HPI and below PMFSH Past Medical History Medical History COPD (chronic obstructive pulmonary disease) Surgical History Surgical History History of dental surgery History of tonsillectomy Leg fracture, left Wrist fracture Family History Family History Mother Diabetes mellitus Social History Social History Smoking packs per day: 3 Smoking cigarettes per day: 60.0 Years smoked: 10 Smoking pack-years: 30.00 Smoking status: Current every day smoker Alcohol intake: never Alcohol use details: occasional Substance use type: marijuana Other substance usage details: once weekly Living arrangements: with family 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 Gender identity (if verbalized by the patient): Male Exam Const: General: healthy appearing and no acute distress Nutritional Appearance: well nourished Orientation/consciousness: patient oriented x3 Limitations: no limitations Neck: Neck: normal visual inspection, no lymphadenopathy and no meningeal signs Resp: Effort & Inspection: normal respiratory effort Auscultation: clear to auscultation bilaterally Cardio: Rate: regular rate Rhythm: regular rhythm GI: GI Palp: Yes Soft to palpation Skin: Wounds: wounds noted Other: Redness warmth tenderness with erythema punctate lesions between the webbing of his left thumb and index finger no drainage. Neuro: General: patient oriented x3 Extrem: General: normal to inspection Psych: Mental Status: mental status grossly normal Course Course Emergency Course: Patient updated with his tetanus, will send antibiotics to his local pharmacy including anti-inflammatory pain medicine. Vital Signs Vital signs: Vital Signs Temperature 36.9 C 03/19/23 06:15 Pulse Rate 107 H 03/19/23 06:15 Respiratory Rate 18 03/19/23 06:15 Blood Pressure 115/58 L 03/19/23 06:15 Pulse Oximetry 97 03/19/23 06:15 Oxygen Delivery Room Air 03/19/23 06:15 Temperature 36.9 C 03/19/23 06:15 Pulse Rate 107 H 03/19/23 06:15 Respiratory Rate 18 03/19/23 06:15 Blood Pressure 115/58 L 03/19/23 06:15 Pulse Oximetry 97 03/19/23 06:15 Oxygen Delivery Room Air 03/19/23 06:15 Critical Care Time Critical Care Time Critical Care Time: No Discharge Plan Discharge Clinical Impression: Cellulitis Qualifiers: Site of cellulitis: extremity Site of cellulitis of extremity: upper extremity Laterality: left Qualified Code(s): L03.114 - Cellulitis of left upper limb Insect bite Qualifiers: Encounter type: initial encounter Site of insect bite: finger Finger: thumb Laterality: left Qualified Code(s): S60.362A - Insect bite (nonvenomous)
[2023-03-19] MEDS: TETANUS,DIPHTHERIA,AC PERTUSSIS ADULT 0.5 ML (ADACEL) IM (06:24)
== END 2023-03-19 06:37 | disposition home or self-care (01) ==
PROVIDERS: Emergency Provider Emergency Medicine; PCP Physician Assistant
DX: L03.114 Cellulitis of left upper limb (principal); S60.362A Insect bite (nonvenomous) of left thumb, initial encounter; J44.9 Chronic obstructive pulmonary disease, unspecified; F17.210 Nicotine dependence, cigarettes, uncomplicated; Z23 Encounter for immunization; X58.XXXA Exposure to other specified factors, initial encounter
CPT/HCPCS: 90471; 90715; 99283

== ENCOUNTER 2023-04-12 18:13 | Emergency (ER) | payer OTHER, SELFPAY ==
[2023-04-12 18:13] VITALS: BP 145/92; PULSE 124; RESP 18; TEMP 36.4; O2SAT 96
--- NOTE | 2023-04-12 18:30 | ED.GENADULT ---
HPI - General Adult General Chief complaint: Back Pain/Injury Stated complaint: Low back pain into left leg Time Seen by Provider: 04/12/23 18:29 History of Present Illness HPI narrative: 27yo man with chronic low back pain and sciatica presents with worsening left sided low back pain and sciatica for the past week. Used to manage with opioids and muscle relaxers but ran out a while ago. Tries icy-hot cream without relief. Has not seen primary doc in many months. Related Data Home Medications Medication Instructions Recorded Confirmed albuterol sulfate 90 mcg/actuation 1 puff inhalation QID PRN Wheezing 04/12/23 04/12/23 aerosol inhaler Allergies Allergy/AdvReac Type Severity Reaction Status Date / Time codeine Allergy Rash Verified 04/12/23 18:21 Penicillins Allergy Unknown Verified 04/12/23 18:21 Review of Systems Review of Systems: All systems reviewed & are unremarkable except as noted in HPI and below Constitutional: Constitutional: Denies chills and Denies fever(s) ENT: Denies dysphagia Cardiovascular: Cardiovascular: Denies chest pain Respiratory: Respiratory: Denies dyspnea Gastrointestinal: Gastrointestinal: Denies abdominal pain Genitourinary: Genitourinary: Denies hematuria PMFSH Past Medical History Medical History COPD (chronic obstructive pulmonary disease) Surgical History Surgical History History of dental surgery History of tonsillectomy Leg fracture, left Wrist fracture Family History Family History Mother Diabetes mellitus Social History Social History Smoking packs per day: 3 Smoking cigarettes per day: 60.0 Years smoked: 10 Smoking pack-years: 30.00 Smoking status: Current every day smoker Alcohol intake: never Alcohol use details: occasional Substance use type: marijuana Other substance usage details: once weekly Living arrangements: with family 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 Gender identity (if verbalized by the patient): Male Exam Const: General: healthy appearing and no acute distress Nutritional Appearance: well nourished Eyes: Conjunctivae: conjunctivae normal Resp: Effort & Inspection: normal respiratory effort Cardio: Rate: regular rate GI: Inspection: non-distended Skin: General skin exam: normal color, no jaundice and no pallor Neuro: General: patient oriented x3, moves all extremities and no focal motor deficits Gait exam (Neuro): Normal gait present Extrem: General: no clubbing, cyanosis or edema Course Vital Signs Vital signs: Vital Signs Temperature 36.4 C L 04/12/23 18:13 Pulse Rate 124 H 04/12/23 18:13 Respiratory Rate 18 04/12/23 18:13 Blood Pressure 145/92 H 04/12/23 18:13 Pulse Oximetry 96 04/12/23 18:13 Oxygen Delivery Room Air 04/12/23 18:13 Temperature 36.4 C L 04/12/23 18:13 Pulse Rate 124 H 04/12/23 18:13 Respiratory Rate 18 04/12/23 18:13 Blood Pressure 145/92 H 04/12/23 18:13 Pulse Oximetry 96 04/12/23 18:13 Oxygen Delivery Room Air 04/12/23 18:13 Medical Decision Making MDM Narrative Medical decision making narrative: acute low back pain DDx muscle spasm, sacroiliitis, sciatica, lumbar radiculopathy. Vital Signs Vital Signs: Vital Signs Temperature 36.4 C L 04/12/23 18:13 Pulse Rate 124 H 04/12/23 18:13 Respiratory Rate 18 04/12/23 18:13 Blood Pressure 145/92 H 04/12/23 18:13 Pulse Oximetry 96 04/12/23 18:13 Oxygen Delivery Room Air 04/12/23 18:13 Temperature 36.4 C L 04/12/23 18:13 Pulse Rate 124 H 04/12/23 18:13 Respiratory Rate 18 04/12/23 18:13 Blood Pressure 145/92 H 04/12/23 18:13 Pulse Oximetry 96 04/12/23 18:13 Oxygen Delivery Room Air
[2023-04-12] MEDS: ORPHENADRINE CITRATE 100 MG TABLET.ER PO (18:41)
[2023-04-12] MEDS: methocarbamoL 500 MG TABLET 1000 MG PO (18:41)
[2023-04-12] MEDS: KETOROLAC (*BKC) 60 MG/2 ML VIAL IM (18:42)
== END 2023-04-12 18:57 | disposition home or self-care (01) ==
LOC: CHSED 18:37
PROVIDERS: Emergency Provider Emergency Medicine; PCP Physician Assistant
DX: M54.42 Lumbago with sciatica, left side (principal); J44.9 Chronic obstructive pulmonary disease, unspecified; F17.210 Nicotine dependence, cigarettes, uncomplicated
CPT/HCPCS: 96372; 99284; A9270; J1100; J1885

== ENCOUNTER 2023-05-22 02:28 | Emergency (ER) | payer OTHER, SELFPAY ==
[2023-05-22 02:28] VITALS: BP 150/118; PULSE 105; RESP 20; TEMP 36.6; O2SAT 98
--- NOTE | 2023-05-22 02:34 | ED.GENADULT ---
HPI - General Adult General Chief complaint: Extremity Problem,Nontraumatic Stated complaint: back pain Time Seen by Provider: 05/22/23 02:32 History of Present Illness HPI narrative: 27 YEARS OLD WHITE MALE CAME TO THE HOSPITAL WITH PAIN AT THE LEFT LOWER EXTREMITY AND LOWER BACK. THIS BEEN GOING FOR OVER 1 YEAR. PATIENT CURRENTLY ON PHYSICAL THERAPY. PATIENT IS SCHEDULED FOR LOWER BACK CORTISONE INJECTION NEXT WEEK. PATIENT DENIES ANY RECENT TRAUMA BUT WOULD LIKE TO GET A PAIN SHOT. PATIENT DENIES BOWEL DYSFUNCTION, BLADDER DYSFUNCTION, ALTERED SENSATION, FOCAL WEAKNESS, OR SADDLE NUMBNESS, Related Data Home Medications Medication Instructions Recorded Confirmed albuterol sulfate 90 mcg/actuation 1 puff inhalation QID PRN Wheezing 04/12/23 04/12/23 aerosol inhaler Allergies Allergy/AdvReac Type Severity Reaction Status Date / Time codeine Allergy Rash Verified 04/12/23 18:21 Penicillins Allergy Unknown Verified 04/12/23 18:21 Review of Systems Review of Systems: All systems reviewed & are unremarkable except as noted in HPI and below PMFSH Past Medical History Medical History COPD (chronic obstructive pulmonary disease) Surgical History Surgical History History of dental surgery History of tonsillectomy Leg fracture, left Wrist fracture Family History Family History Mother Diabetes mellitus Social History Social History Smoking packs per day: 3 Smoking cigarettes per day: 60.0 Years smoked: 10 Smoking pack-years: 30.00 Smoking status: Current every day smoker Alcohol intake: never Alcohol use details: occasional Substance use type: marijuana Other substance usage details: once weekly Living arrangements: with family 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 MUSCULOSKELETAL: NORMAL RANGE OF MOTION, , MILD DIFFUSE TENDERNESS ACROSS THE LUMBAR AREA NEUROLOGIC: ALERT AND ORIENTED ?3, THERAPIST IS NORMAL TESTED, NO GROSS MOTOR DEFICIT, NEGATIVE LEG RAISING TEST Course Vital Signs Vital signs: Vital Signs Temperature 36.6 C 01/20/24 02:28 Pulse Rate 105 H 05/22/23 02:28 Respiratory Rate 05/22/23 02:28 Blood Pressure 150/118 H 05/22/23 02:28 Pulse Oximetry 98 05/22/23 02:28 Oxygen Delivery Room Air 05/22/23 02:28 Temperature 36.6 C 05/22/23 02:28 Pulse Rate 105 H 05/22/23 02:28 Respiratory Rate 05/22/23 02:28 Blood Pressure 150/118 H 05/22/23 02:28 Pulse Oximetry 98 05/22/23 02:28 Oxygen Delivery Room Air 05/22/23 02:28 Medical Decision Making Vital Signs Vital Signs: Vital Signs Temperature 36.6 C 05/22/23 02:28 Pulse Rate 105 H 05/22/23 02:28 Respiratory Rate 05/22/23 02:28 Blood Pressure 150/118 H 05/22/23 02:28 Pulse Oximetry 98 05/22/23 02:28 Oxygen Delivery Room Air 05/22/23 02:28 Temperature 36.6 C 05/22/23 02:28 Pulse Rate 105 H 05/22/23 02:28 Respiratory Rate 05/22/23 02:28 Blood Pressure 150/118 H 05/22/23 02:28 Pulse Oximetry 98 05/22/23 02:28 Oxygen Delivery Room Air 05/22/23 02:28 Critical Care Time Critical Care Time Critical Care Time: No Discharge Plan Discharge Clinical Impression: Sciatica of left side Patient Dispositi
[2023-05-22] MEDS: HYDROmorphone HCL INJ (*CRX) 2 MG/ML VIAL 1 MG IM (02:53)
[2023-05-22] MEDS: ONDANSETRON HCL ODT 4 MG TABLET PO (02:54)
== END 2023-05-22 03:05 | disposition home or self-care (01) ==
LOC: CHSED 02:38
PROVIDERS: Emergency Provider Emergency Medicine; PCP Physician Assistant
DX: M54.32 Sciatica, left side (principal); J44.9 Chronic obstructive pulmonary disease, unspecified; F17.210 Nicotine dependence, cigarettes, uncomplicated
CPT/HCPCS: 96372; 99283; A9270; J1170

== ENCOUNTER 2023-08-25 03:00 | Emergency (ER) | payer OTHER, SELFPAY ==
[2023-08-25 03:00] VITALS: BP 160/116; PULSE 100; RESP 20; TEMP 37.1; O2SAT 94
--- NOTE | 2023-08-25 03:13 | ED.DENTAL ---
HPI - Dental/Oral General Chief complaint: Dental/Oral Stated complaint: Tooth Pain Source: patient and family (spouse) Mode of arrival: ambulatory Limitations: no limitations History of Present Illness HPI Narrative: 27 year old male presents to the Emergency Department complaining of dental pain. Onset several days ago. Pain to the left upper. Has appointment to see dentist tomorrow. No fever, nausea, vomiting. MD Complaint: tooth pain Onset (ago): day(s) Duration: constant Severity: severe Relieving factors: nothing Exacerbating factors: nothing Context: history of dental caries Treatment prior to arrival: other (ibuprofen) Related Data Allergies Allergy/AdvReac Type Severity Reaction Status Date / Time codeine Allergy Rash Verified 05/22/23 04:07 Penicillins Allergy Unknown Verified 05/22/23 04:07 Review of Systems Review of Systems: All systems reviewed & are unremarkable except as noted in HPI and below Constitutional: Constitutional: Reports as per HPI, Denies chills and Denies fever(s) Eyes: Eyes: Reports as per HPI ENT: Reports system reviewed and no additional complaints, except as documented Cardiovascular: Cardiovascular: Reports as per HPI Respiratory: Respiratory: Reports as per HPI Gastrointestinal: Gastrointestinal: Reports as per HPI Genitourinary: Genitourinary: Reports no additional male genitourinary complaints Musculoskeletal: Musculoskeletal: Reports no additional musculoskeletal complaints Integumentary/Breasts: Skin/Breast: Reports system reviewed and no additional complaints, except as docu Neurologic: Reports system reviewed and no additional complaints, except as documented Psychiatric: Psychiatric: Reports no additional psychiatric complaints Endocrine: Endocrine: Reports no additional endocrine complaints Hematologic/Lymphatic: Hematologic/Lymphatic: Reports no additional hematologic/lymphatic complaints Allergic/Immunologic: Allergic/Immunologic: Reports no additional allergic/immunologic complaints [facility] Past Medical History Medical History COPD (chronic obstructive pulmonary disease) Surgical History Surgical History History of dental surgery History of tonsillectomy Leg fracture, left Wrist fracture Family History Family History Mother Diabetes mellitus Social History Social History Smoking packs per day: 3 Smoking cigarettes per day: 60.0 Years smoked: 10 Smoking pack-years: 30.00 Smoking status: Current every day smoker Alcohol intake: never Alcohol use details: occasional Substance use type: marijuana Other substance usage details: once weekly Living arrangements: with family 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 Gender identity (if verbalized by the patient): Male Exam Const: General: healthy appearing Nutritional Appearance: obese Orientation/consciousness: patient oriented x3 Limitations: no limitations HENMT: Head: normal to inspection Ears: external ears normal Face/Nose/Sinus: Normal external nose present Face and sinus: normal facial exam Mouth: Yes moist mucous membranes Teeth and gingiva: abnormal tooth and associated gingiva (diffuse dental decay) Throat: posterior oropharynx normal Eyes: Conjunctivae: conjunctivae normal Pupils: Equal, round and reactive pupils present EOM: EOMs intact bilaterally Direct Ophthalmoscopy: no photophobia Neck: Neck: normal visual inspection and no meningeal signs Chest: Chest palpation & inspection: normal inspection of the chest Resp: Effort & Inspection: normal respiratory effort Auscultation: clear to auscultation bilaterally Cardio: Rate: regular rate Rhythm: regular rhythm GI: Inspection: non-distended GI Palp: Yes Soft t
[2023-08-25] MEDS: CLINDAMYCIN HCL 150 MG CAP 300 MG PO (03:25)
[2023-08-25] MEDS: HYDROmorphone HCL INJ (*CRX) 2 MG/ML VIAL IM (03:25)
[2023-08-25 03:42] VITALS: BP 146/102; PULSE 100; RESP 18; O2SAT 99
== END 2023-08-25 03:42 | disposition home or self-care (01) ==
PROVIDERS: Emergency Provider Emergency Medicine; PCP Physician Assistant
DX: K02.9 Dental caries, unspecified (principal); K08.89 Other specified disorders of teeth and supporting structures; J44.9 Chronic obstructive pulmonary disease, unspecified; F17.210 Nicotine dependence, cigarettes, uncomplicated; F12.90 Cannabis use, unspecified, uncomplicated
CPT/HCPCS: 96372; 99283; A9270; J1170

== ENCOUNTER 2023-09-30 10:05 | Emergency (ER) | payer OTHER, SELFPAY ==
[2023-09-30] VITALS (9 sets, daily range): BP systolic 114–136; BP diastolic 52–89; PULSE 88–120; RESP 12–18; TEMP 36.4–36.6; O2SAT 95–98
--- NOTE | 2023-09-30 10:18 | ECG_ITS ---
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 Measurements Intervals [place] Rate: 109 P: 54 MS: 145 QRS: 64 QRSD: 92 T: 27 QT: 355 QTc: 480 Interpretive Statements SINUS TACHYCARDIA NONSPECIFIC T-WAVE ABNORMALITY- ANT/INF LEADS ABNORMAL ECG No previous ECG available for comparison Electronically Signed On 09-30-2023 11:22:05 CDT by Kendrick Rebolledo D.O.
[2023-09-30] MEDS: SODIUM CHLORIDE 0.9% IV 1,000 ML 999 ML IV CONT (10:35)
[2023-09-30] MEDS: ONDANSETRON INJ 4 MG/2 ML VIAL IV PUSH (10:37)
[2023-09-30 10:54] LABS: Hematocrit 47.6 % (40.0-54.0); Mean Corpuscular HGB Conc 33.6 g/dL (32-36); Mean Corpuscular Hemoglobin 29.5 pg (27.0-31.0); Mean Corpuscular Volume 87.8 fL (78.0-102.0); Mean Platelet Volume 12.8 fl (8.7-11.0); Platelet Count Result 117 K/mm3 (150-420); Red Blood Count 5.42 M/mm3 (4.70-6.10); Red Cell Distribution Width 14.4 % (11.6-14.4); White Blood Count 9.7 K/mm3 (4.8-10.8)
[2023-09-30 11:12] LABS: Lactic Acid Reflex 1.2 mmol/L (0.4-2.0)
[2023-09-30 11:21] LABS: Alanine Aminotransferase 72 U/L (16-63); Albumin Level 3.8 g/dL (3.4-5.0); Alkaline Phosphatase 80 U/L (46-116); Anion Gap 9 mmol/L (4-12); Aspartate Amino Transferase 48 U/L (15-37); Bilirubin,Total 0.8 mg/dL (0.00-1.00); Blood Urea Nitrogen 12 mg/dL (7-18); Calcium 9.1 mg/dL (8.5-10.1); Carbon Dioxide 28 mmol/L (21-32); Chloride 102 mmol/L (98-108); Estimated Glomerular Filt Rate > 60; Glucose 108 mg/dL (70-99); Osmolality Calculated 288 mOsm/kg (285-295); Potassium 3.6 mmol/L (3.5-5.1); Sodium 139 mmol/L (136-145); Total Protein 8.1 g/dL (6.4-8.2)
[2023-09-30 11:22] LABS: Creatine Kinase 1376 U/L (39-308)
[2023-09-30 11:29] LABS: Band Neutrophils Percent 0 % (0-6); Eosinophils Absolute Manual 0.29 K/mm3 (0.02-0.50); Eosinophils Percent Manual 3 % (1-6); Lymphocytes Absolute Manual 2.42 K/mm3 (1.1-4.5); Lymphocytes Percent Manual 25 % (18-44); Monocytes Absolute Manual 1.06 K/mm3 (0.1-0.90); Monocytes Percent Manual 11 % (3-9); Neutrophils Absolute Manual 5.91 K/mm3 (1.3-6.7); Neutrophils Percent Manual 61 % (46-73); Platelet Estimate Adequate (Adequate); Total Cells Counted 100
--- NOTE | 2023-09-30 11:29 | ED.GENADULT ---
HPI - General Adult General Chief complaint: Environmental Exposure Stated complaint: heat exhaustion Time Seen by Provider: 09/30/23 10:11 Source: patient and family Mode of arrival: ambulatory Limitations: no limitations History of Present Illness HPI narrative: this is a 27-year-old male with no significant past medical history was outdoors yesterday for most of the day and presents with some body aches and feels dehydrated currently there is no fever or chills no dysuria does have some nausea with no headache no blurry vision. Onset (ago): day(s) Severity: moderate Related Data Home Medications Medication Instructions Recorded Confirmed No Home Medications 09/30/23 09/30/23 Allergies Allergy/AdvReac Type Severity Reaction Status Date / Time codeine Allergy Rash Verified 05/22/23 04:07 Penicillins Allergy Unknown Verified 05/22/23 04:07 Review of Systems Review of Systems: All systems reviewed & are unremarkable except as noted in HPI and below PMFSH Past Medical History Medical History COPD (chronic obstructive pulmonary disease) Surgical History Surgical History History of dental surgery History of tonsillectomy Leg fracture, left Wrist fracture Family History Family History Mother Diabetes mellitus Social History Social History Smoking packs per day: 3 Smoking cigarettes per day: 60.0 Years smoked: 10 Smoking pack-years: 30.00 Smoking status: Current every day smoker Alcohol intake: never Alcohol use details: occasional Substance use type: marijuana Other substance usage details: once weekly Living arrangements: with family 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 Gender identity (if verbalized by the patient): Male Exam Const: General: cooperative, healthy appearing, comfortable, no acute distress, well developed, alert, awake and Physically active HENMT: Face and sinus: normal facial exam Mouth: Yes Normal oral and palatal mucosa present, Yes lip normal and Yes tongue normal Eyes: General: appearance normal, both eyes and all related structures Neck: Neck: normal visual inspection, full ROM and no lymphadenopathy Resp: Effort & Inspection: normal respiratory effort and able to speak in complete sentences Cardio: Palpation: normal PMI Rate: regular rate Rhythm: regular rhythm Heart sounds: S1 normal heart sound present and S2 normal heart sound present GI: Inspection: normal to inspection : General: Yes bimanual renal exam normal bilaterally Urinary Catheter: Urinary Catheter: patent and draining Back/Spine/Pelvis: Cervical Spine: normal cervical lordosis and cervical ROM normal Thoracic/Lumbar Spine: thoracic and lumbar spine normal to inspection and Thoracic/lumbar spine scar(s) Skin: General skin exam: normal color and no rashes or lesions noted Neuro: General: oriented to person, oriented to place, oriented to time and patient oriented x3 Extrem: General: normal to inspection, full ROM and capillary refill normal Course Course Emergency Course: Patient received a L of normal saline after reassessment patient's symptoms have improved considerably does have an elevated CK of 1300 his CMP is within normal limits with creatinine and BUN and potassium within normal limits patient had an EKG which shows normal sinus rhythm and patient is comfortable at this time and in advised that he can go home drink plenty of fluids and follow with his primary within the next 3 to 4 days. Vital Signs Vital signs: Vital Signs Temperature 36.4 C L 09/30/23 10:05 Pulse Rate 120 H 09/30/23 10:05 Respiratory Rate 14 09/30/23 10:05 Blood Pressure 132/89 09/30/23 10:05 Pulse Oximetry 95 09/30/23 10:05 Oxygen
== END 2023-09-30 11:37 | disposition home or self-care (01) ==
PROVIDERS: Emergency Provider Emergency Medicine; PCP Physician Assistant
DX: E86.0 Dehydration (principal); M62.82 Rhabdomyolysis; F17.210 Nicotine dependence, cigarettes, uncomplicated
CPT/HCPCS: 36415; 80053; 82550; 83605; 85025; 93005; 96361; 96374; 99284; J2405; J7030

== ENCOUNTER 2023-10-13 15:50 | Emergency (ER) | payer OTHER, SELFPAY ==
--- NOTE | ~2023-10-13 | XR_ITS ---
EXAMINATION: XR chest 1V portable 10/13/2023 16:46 INDICATION: Right lateral rib pain. History of COPD. PROCEDURE: AP portable chest COMPARISON: 04/12/2022 FINDINGS: The lungs are clear. The cardiomediastinal silhouette is within normal limits. There are no pleural effusions. There is no pneumothorax suspected. IMPRESSION: 1: NO ACUTE CARDIOPULMONARY DISEASE. Reviewed, dictated and finalized at location B.
--- NOTE | ~2023-10-13 | CT_ITS ---
EXAMINATION: CT abdomen pelvis w con DATE: 10/13/2023 17:09 INDICATION: Right-sided flank pain TECHNIQUE: Computed tomography (CT) of the abdomen and pelvis was performed with 100 mL Omnipaque-350 intravenous contrast. Automated exposure control and iterative reconstruction technique were employe d. The dose-length product was 1518.92 mGy-cm. COMPARISON: 06/28/2022 FINDINGS: Mild atelectasis/scarring at the medial right middle lobe. Heart size is normal. No pericardial or pl eural effusion. Diffuse hepatic steatosis with focal sparing along the gallbladder fossa. Gallbladder , spleen, pancreas, bilateral adrenal glands and kidneys are normal. Bilateral ureters are normal. No evident urolithiasis or hydronephrosis. Bowels including the appendix are normal. Bladder is normal. No free intraperitoneal gas or fluid. No pathologically enlarged abdominal or pelvic lymphadenopathy . Mild lower lumbar spondylosis with bilateral L5 pars intra-articular is defects without spondylolis thesis. There is subtle sclerosis at the bilateral femoral heads consistent with osteonecrosis. IMPRESSION: 1. No acute intra-abdominal/pelvic process. 2. Diffuse hepatic steatosis. 3. Osteonecrosis at the bilateral femoral heads. 4. Bilateral L5 pars interarticularis defects. Reviewed, dictated and finalized at location A.
[2023-10-13 16:04] VITALS: BP 146/75; PULSE 88; RESP 19; TEMP 36.8; O2SAT 97
--- NOTE | 2023-10-13 16:06 | ED.ABDPAIN ---
HPI - Abdominal Pain General Chief Complaint: Abdominal Pain Stated Complaint: RUQ abd pain into flank Time Seen by Provider: 10/13/23 16:03 Source: patient Mode of arrival: ambulatory Limitations: no limitations History of Present Illness HPI narrative: This is a 27-year-old male who presents to the ED with chief complaint of right upper quadrant pain radiating to the right flank . States the pain has been present for about a week but certainly worse after a coughing episode yesterday. reports that he feels very stiff right now because movement is worsening the pain. He was sent by PCP for evaluation of his gallbladder. Patient denies any injuries. Endorses mild nausea but no vomiting. Denies fevers, chills, urinary symptoms, problems with bowel movements. Related Data Home Medications Medication Instructions Recorded Confirmed No Home Medications 09/30/23 09/30/23 Allergies Allergy/AdvReac Type Severity Reaction Status Date / Time codeine Allergy Rash Verified 05/22/23 04:07 Penicillins Allergy Unknown Verified 05/22/23 04:07 Review of Systems Review of Systems: All systems as dictated in HPI PMFSH Past Medical History Medical History COPD (chronic obstructive pulmonary disease) Surgical History Surgical History History of dental surgery History of tonsillectomy Leg fracture, left Wrist fracture Family History Family History Mother Diabetes mellitus Social History Social History Smoking packs per day: 3 Smoking cigarettes per day: 60.0 Years smoked: 10 Smoking pack-years: 30.00 Smoking status: Current every day smoker Alcohol intake: never Alcohol use details: occasional Substance use type: marijuana Other substance usage details: once weekly Living arrangements: with family 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 HEAD: Normocephalic, atraumatic. EYES: PERRLA and EOMI. ENT: Nares clear, no rhinorrhea or epistaxis. Mucous membranes moist. Oropharynx without tonsillar hypertrophy exudate or other lesions. NECK: Supple. No adenopathy or masses. CHEST: No respiratory distress. Clear to auscultation. No wheezes rales or rhonchi. Tenderness over the right lateral inferior chest /ribs. HEART: Regular rate and rhythm. No murmur heard. Normal peripheral pulses. ABDOMEN: Minimal tenderness to right upper quadrant. Minimal tenderness to right flank. Soft, otherwise nontender, nondistended, normal active bowel sounds. MSK: Normal range of motion. No edema. SKIN: Warm, dry, no rash. NEURO: Alert and oriented x4. No focal deficits. PSYCH: Normal mood and affect. Course Vital Signs Vital signs: Vital Signs Temperature 98.2 F 10/13/23 16:04 Pulse Rate 88 10/13/23 16:04 Respiratory Rate 19 10/13/23 16:04 Blood Pressure 146/75 H 10/13/23 16:04 Pulse Oximetry 97 10/13/23 16:04 Oxygen Delivery Room Air 10/13/23 16:04 Temperature 98.2 F 10/13/23 16:04 Pulse Rate 84 10/13/23 18:05 Respiratory Rate 20 10/13/23 18:05 Blood Pressure 146/75 H 10/13/23 16:04 Pulse Oximetry 100 10/13/23 18:05 Oxygen Delivery Room Air 10/13/23 16:04 MDM - Abdominal Pain MDM Narrative Medical decision making narrative: This is a 27-year-old male who presents to the ED with chief complaint of right side pain for the past week. Vitals are normal. Exam shows right lateral inferior rib pain. Minimal right upper quadrant or right flank tenderness. Lab work is largely unremarkable. Slightly elevated AST and ALT. Lipase normal. Chest x-ray is negative.
[2023-10-13] MEDS: HYDROmorphone HCL INJ (*CRX) 1 MG/ML SYR 0.5 MG IV PUSH (16:34)
[2023-10-13] MEDS: diphenhydrAMINE HCl INJ 50 MG/ML VIAL 25 MG IV PUSH (16:35)
[2023-10-13 16:44] LABS: Basophils Absolute Auto 0.1 K/mm3 (0.0-0.1); Basophils Percent Auto 0.5 % (0.2-1.2); Eosinophils Absolute Auto 0.1 K/mm3 (0-0.3); Eosinophils Percent Auto 1.2 % (0-4.4); Hematocrit 47.5 % (42.0-52.0); Hemoglobin 16.1 g/dL (14.0-18.0); Immature Granulocyte Absolute 0.02 K/mm3 (0.00-0.031); Immature Granulocyte Percent A 0.2 % (0-0.5); Lymphocytes Absolute Auto 1.92 K/mm3 (0.9-3.2); Mean Corpuscular HGB Conc 33.9 g/dl (32-36); Mean Corpuscular Hemoglobin 29.9 pg (26-34); Mean Corpuscular Volume 88.3 fl (80-100); Monocytes Absolute Auto 1.1 K/mm3 (0.1-0.6); Neutrophils Absolute Auto 5.9 K/mm3 (1.3-6.7); Neutrophils Percent Auto 65.1 % (45.5-73.1); Platelet Count Result 134 k/mm3 (150-375); Red Blood Count 5.38 M/mm3 (4.6-6.20); Red Cell Distribution Width 14.6 % (11.5-14.5); White Blood Count 9.1 K/mm3 (4.5-10.0)
[2023-10-13 17:00] LABS: Estimated CRCL calculation 114 ml/min; Estimated Glomerular Filt Rate > 60
[2023-10-13 18:05] VITALS: PULSE 84; RESP 20; O2SAT 100
[2023-10-13 18:14] LABS: Alanine Aminotransferase 113 U/L (6-50); Albumin Level 4.8 g/dL (3.5-5.1); Alkaline Phosphatase 89 U/L (38-126); Anion Gap 11 mmol/L (4-12); Aspartate Amino Transferase 69 U/L (17-59); Blood Urea Nitrogen 13 mg/dL (9-20); Calcium 9.5 mg/dL (8.4-10.2); Carbon Dioxide 22 mmol/L (22-30); Chloride 105 mmol/L (98-107); Estimated CRCL calculation 124 ml/min; Estimated Glomerular Filt Rate > 60; Glucose 104 mg/dL (65-110); Lipase 64 U/L (23-300); Potassium 3.6 mmol/L (3.4-5.0); Sodium 138 mmol/L (137-145)
[2023-10-13 18:49] VITALS: BP 133/73; PULSE 77; RESP 18; O2SAT 99
== END 2023-10-13 18:51 | disposition home or self-care (01) ==
PROVIDERS: Emergency Provider Physician Assistant; PCP Physician Assistant
DX: R07.81 Pleurodynia (principal); J44.9 Chronic obstructive pulmonary disease, unspecified; M87.9 Osteonecrosis, unspecified; K76.0 Fatty (change of) liver, not elsewhere classified; F17.210 Nicotine dependence, cigarettes, uncomplicated
CPT/HCPCS: 36415; 71045; 74177; 80053; 83690; 85025; 96374; 96375; 99284; J1170; J1200; Q9967

== ENCOUNTER 2023-10-23 10:41 | Outpatient (CLI) | payer OTHER, SELFPAY ==
--- NOTE | ~2023-10-23 | MR_ITS ---
EXAMINATION: MR lumbar spine wo con DATE: 10/23/2023 11:27 INDICATION: Spinal stenosis, lumbar region with neurogenic claudication. TECHNIQUE: Magnetic resonance imaging (MRI) of the lumbar spine was performed without intravenous con trast. COMPARISON: Lumbar spine MRI 06/11/2022 FINDINGS: Bone alignment is normal. There are Schmorl's nodes at multiple levels. There is mildly dec reased disc height at L5-S1. The osseous central spinal canal developmentally small. Epidural lipomat osis is noted. The distal spinal cord signal intensity is normal. The conus medullaris is at L1. The following disc levels are specifically discussed: L1-L2: The disc does not extend beyond the endplate margin. There is mild bilateral facet joint osteo arthritis. There is no neural foraminal stenosis. There is no central canal stenosis. L2-L3: The disc does not extend beyond the endplate margin. There is moderate bilateral facet joint o steoarthritis. There is no neural foraminal stenosis. There is mild central canal stenosis. L3-L4: The disc does not extend beyond the endplate margin. There is mild bilateral facet joint osteo arthritis. There is no neural foraminal stenosis. There is mild central canal stenosis. L4-L5: The disc does not extend beyond the endplate margin. There is moderate bilateral facet joint o steoarthritis. There is mild bilateral neural foraminal stenosis. There is mild central canal stenosi s. L5-S1: The disc is bulging with superimposed left central extrusion with mass effect on the left S1 n erve root in left lateral recess. There is moderate right and mild left facet joint osteoarthritis. T here is mild bilateral neural foraminal stenosis. There is mild central canal stenosis. There is mode rate stenosis of left lateral recess. IMPRESSION: 1. Moderate lower lumbar spondylosis, worsened from 06/11/2022. Reviewed, dictated and finalized at location E.
== END 2023-10-23 10:42 | disposition home or self-care (01) ==
PROVIDERS: PCP Physician Assistant; Visit Provider Nurse Practitioner Adult Health
DX: M48.062 Spinal stenosis, lumbar region with neurogenic claudication (principal); M43.06 Spondylolysis, lumbar region
CPT/HCPCS: 72148

== ENCOUNTER 2023-12-01 08:18 | Emergency (ER) | payer OTHER, SELFPAY ==
[2023-12-01 08:21] VITALS: BP 113/78; PULSE 107; RESP 18; TEMP 36.3; O2SAT 95
[2023-12-01 08:28] VITALS: BP 113/78; PULSE 107; RESP 18; TEMP 36.3; O2SAT 95
--- NOTE | 2023-12-01 08:33 | ED.SKABFB ---
HPI - Skin/Abscess/Foreign Bdy General Chief complaint: Skin/Abscess/Foreign Body Stated complaint: left hand pain Time Seen by Provider: 12/01/23 08:32 Source: patient Mode of arrival: ambulatory Limitations: no limitations History of Present Illness HPI narrative: 28-year-old male, smoker with a history of chronic bronchitis, chronic low back pain presents to the ED with -- left palm firm swelling which is tender on palpation. he gets this lesions intermittently. No fever or chills. this lesion erupts periodically. Last eruption was 1 year ago MD complaint: rash Tetanus up to date: unsure Location: L hand ( Left has firm painful swelling) Severity: mild Quality: aching Pain Consistency: constant Relieving factors: none Exacerbating factors: none Associated symptoms: denies other symptoms Treatments prior to arrival: none Related Data Home Medications Medication Instructions Recorded Confirmed albuterol sulfate 90 mcg/actuation 2 puff inhalation QID PRN Wheezing 12/01/23 12/01/23 aerosol inhaler diclofenac sodium 75 mg 75 mg PO BID PRN Pain 12/01/23 12/01/23 tablet,delayed release pregabalin 150 mg capsule 150 mg PO DAILY pain 12/01/23 12/01/23 Allergies Allergy/AdvReac Type Severity Reaction Status Date / Time codeine Allergy Rash Verified 12/01/23 08:25 Penicillins Allergy Unknown Verified 12/01/23 08:25 Review of Systems Review of Systems: All systems reviewed & are unremarkable except as noted in HPI and below Constitutional: Constitutional: Reports as per HPI and Reports no additional constitutional complaints Eyes: Eyes: Reports as per HPI and Reports no additional eye complaints ENT: Reports system reviewed and no additional complaints, except as documented and Reports as per HPI Cardiovascular: Cardiovascular: Reports as per HPI and Reports no additional cardiovascular complaints Respiratory: Respiratory: Reports as per HPI and Reports cough Gastrointestinal: Gastrointestinal: Reports as per HPI and Reports no additional gastrointestinal complaints Genitourinary: Genitourinary: Reports no additional male genitourinary complaints and Reports as per HPI Musculoskeletal: Musculoskeletal: Reports no additional musculoskeletal complaints and Reports as per HPI Integumentary/Breasts: Skin/Breast: Reports system reviewed and no additional complaints, except as docu and Reports as per HPI Neurologic: Reports system reviewed and no additional complaints, except as documented and Reports as per HPI Psychiatric: Psychiatric: Reports no additional psychiatric complaints and Reports as per HPI Endocrine: Endocrine: Reports no additional endocrine complaints and Reports as per HPI Hematologic/Lymphatic: Hematologic/Lymphatic: Reports no additional hematologic/lymphatic complaints and Reports as per HPI Allergic/Immunologic: Allergic/Immunologic: Reports no additional allergic/immunologic complaints and Reports as per HPI [facility] Past Medical History Medical History COPD (chronic obstructive pulmonary disease) Surgical History Surgical History History of dental surgery History of tonsillectomy Leg fracture, left Wrist fracture Family History Family History Mother Diabetes mellitus Social History Social History Smoking packs per day: 3 Smoking cigarettes per day: 60.0 Years smoked: 10 Smoking pack-years: 30.00 Smoking status: Current every day smoker Alcohol intake: never Alcohol use details: occasional Substance use type: marijuana Other substance usage details: once weekly Living arrangements: with family 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
== END 2023-12-01 08:49 | disposition home or self-care (01) ==
PROVIDERS: Emergency Provider Internal Medicine Critical Care Medicine; PCP Physician Assistant
DX: R22.32 Localized swelling, mass and lump, left upper limb (principal); J44.9 Chronic obstructive pulmonary disease, unspecified; F17.210 Nicotine dependence, cigarettes, uncomplicated
CPT/HCPCS: 99281

== ENCOUNTER 2024-01-19 09:56 | Emergency (ER) | payer OTHER, SELFPAY ==
[2024-01-19] VITALS (9 sets, daily range): BP systolic 120–133; BP diastolic 72–86; PULSE 83–97; RESP 12–20; TEMP 36.9; O2SAT 94–97
--- NOTE | ~2024-01-19 | XR_ITS ---
EXAMINATION: XR chest 1V portable DATE: 01/19/2024 10:56 INDICATION: Midsternal chest pain TECHNIQUE: frontal view of the chest was obtained. COMPARISON: Chest radiograph dated 10/13/2023 FINDINGS: The lungs remain clear with no focal airspace opacities, pulmonary edema, pleural effusion or pneumot horax. The cardiomediastinal silhouette is normal. Visualized bones and soft tissues are unremarkable . IMPRESSION: 1. No acute cardiopulmonary disease. Reviewed, dictated and finalized at location B.
--- NOTE | 2024-01-19 09:57 | ECG_ITS ---
Test Date: 2024-01-19 10:06:48 Measurements Intervals [place] Rate: 94 P: 47 TN: 146 QRS: 78 QRSD: 93 T: 9 QT: 341 QTc: 427 Interpretive Statements SINUS RHYTHM NORMAL ECG Compared to ECG 09/30/2023 10:27:33 HEART RATE HAS DECREASED Electronically Signed On 01-19-2024 10:23:54 CDT by Kendrick Rebolledo D.O.
--- NOTE | 2024-01-19 10:06 | ED.CHESTPAIN ---
HPI - Chest Pain General Chief Complaint: Chest Pain Stated Complaint: chest pain Source: patient Mode of arrival: ambulatory Limitations: no limitations History of Present Illness HPI narrative: 28-year-old male with a history of smoking, chronic bronchitis, chronic low back pain presents to the ED with -- chest pain off and on for a week which got worse today. Patient was at rest when the chest pain started. No radiation of the pain. No nausea vomiting. The patient complains of shortness of breath. Pain is worse on deep breathing. -- shortness of breath. The patient has chronic shortness of breath from chronic bronchitis. No fever or chills no lightheadedness or dizziness complaint: chest pain Onset (ago): day(s) ( 7 days) Timing of current episode: constant Prior episodes: Yes Onset: during rest Pain location: substernal Pain radiation: none Severity: moderate Quality: aching Relieving factors: nothing Exacerbating factors: nothing Context: recent illness Treatment prior to arrival: none Risk Factors Coronary artery disease risk factors: smoking history Thoracic aortic dissection risk factors: none Pulmonary embolism risk factors: morbid obesity Related Data Home Medications Medication Instructions Recorded Confirmed albuterol sulfate 90 mcg/actuation 2 puff inhalation QID PRN Wheezing 12/01/23 01/19/24 aerosol inhaler diclofenac sodium 75 mg 75 mg PO BID PRN Pain 12/01/23 01/19/24 tablet,delayed release pregabalin 150 mg capsule 150 mg PO DAILY pain 12/01/23 01/19/24 Allergies Allergy/AdvReac Type Severity Reaction Status Date / Time codeine Allergy Rash Verified 12/01/23 08:25 Penicillins Allergy Unknown Verified 12/01/23 08:25 Review of Systems Review of Systems: All systems reviewed & are unremarkable except as noted in HPI and below Constitutional: Constitutional: Reports as per HPI and Reports no additional constitutional complaints Eyes: Eyes: Reports as per HPI and Reports no additional eye complaints ENT: Reports system reviewed and no additional complaints, except as documented and Reports as per HPI Cardiovascular: Cardiovascular: Reports as per HPI, Reports no additional cardiovascular complaints and Reports chest pain Respiratory: Respiratory: Reports as per HPI, Reports no additional respiratory complaints and Reports dyspnea Gastrointestinal: Gastrointestinal: Reports as per HPI and Reports no additional gastrointestinal complaints Genitourinary: Genitourinary: Reports no additional male genitourinary complaints and Reports as per HPI Comments: No dysuria or hematuria Musculoskeletal: Musculoskeletal: Reports no additional musculoskeletal complaints, Reports as per HPI and Reports back pain Integumentary/Breasts: Skin/Breast: Reports system reviewed and no additional complaints, except as docu and Reports as per HPI Neurologic: Reports system reviewed and no additional complaints, except as documented and Reports as per HPI Psychiatric: Psychiatric: Reports no additional psychiatric complaints, Reports as per HPI and Reports anxiety Endocrine: Endocrine: Reports no additional endocrine complaints and Reports as per HPI Hematologic/Lymphatic: Hematologic/Lymphatic: Reports no additional hematologic/lymphatic complaints and Reports as per HPI Allergic/Immunologic: Allergic/Immunologic: Reports no additional allergic/immunologic complaints and Reports as per HPI PMFSH Past Medical History Medical History COPD (chronic obstructive pulmonary disease) Surgical History Surgical History History of dental surgery History of tonsillectomy Leg fracture, left Wrist fracture Family History Family History Mother Diabetes mellitus Social History Social History (Reviewed 01/19/24 @ 10:40 by Jatinder
[2024-01-19 10:53] LABS: Basophils Absolute Auto 0.06 K/mm3 (0.00-0.10); Basophils Percent Auto 0.8 % (0.0-1.0); Eosinophils Absolute Auto 0.21 K/mm3 (0.02-0.50); Eosinophils Percent Auto 2.6 % (1.0-6.0); Hematocrit 47.6 % (40.0-54.0); Hemoglobin 15.9 g/dL (14.0-18.0); Immature Granulocyte Absolute 0.02 K/mm3 (0.00-0.00); Immature Granulocyte Percent A 0.3 % (0.0-0.0); Immature Platelet Fraction Pct 21.1 % (1.0-7.0); Lymphocytes Absolute Auto 2.32 K/mm3 (1.10-4.50); Lymphocytes Percent Auto 29.1 % (18.0-42.0); Mean Corpuscular HGB Conc 33.4 g/dL (32-36); Mean Corpuscular Hemoglobin 29.8 pg (27.0-31.0); Mean Corpuscular Volume 89.3 fL (78.0-102.0); Monocytes Absolute Auto 0.83 K/mm3 (0.10-0.90); Monocytes Percent Auto 10.4 % (2.0-11.0); Neutrophils Absolute Auto 4.52 K/mm3 (1.70-7.20); Neutrophils Percent Auto 56.8 % (50.0-70.0); Platelet Count Result 101 K/mm3 (150-420); Red Blood Count 5.33 M/mm3 (4.70-6.10); Red Cell Distribution Width 13.8 % (11.6-14.4)
--- NOTE | 2024-01-19 11:00 | PC.NURSE ---
covid swab sent to lab
[2024-01-19 11:03] LABS: Alanine Aminotransferase 112 U/L (16-63); Albumin Level 3.6 g/dL (3.4-5.0); Alkaline Phosphatase 85 U/L (46-116); Anion Gap 8 mmol/L (4-12); Aspartate Amino Transferase 50 U/L (15-37); Bilirubin,Total 0.6 mg/dL (0.00-1.00); Blood Urea Nitrogen 8 mg/dL (7-18); Calcium 9.2 mg/dL (8.5-10.1); Carbon Dioxide 29 mmol/L (21-32); Chloride 102 mmol/L (98-108); D Dimer 0.31 mg/L (0.19-0.50); Estimated CRCL calculation 103 ml/min; Estimated Glomerular Filt Rate > 60; Glucose 107 mg/dL (70-99); INR 0.9; Osmolality Calculated 286 mOsm/kg (285-295); Partial Thromboplastin Time 29.3 Sec (23.9-30.70); Prothrombin Time 10.1 Seconds (9.50-12.1); Sodium 139 mmol/L (136-145); Total Protein 7.8 g/dL (6.4-8.2); Troponin I < 4.0 ng/L (0.00-60.4)
--- NOTE | 2024-01-19 11:17 | PC.NURSE ---
pt wanting to go home without covid result, has to go to work and no other transportation is available. dr jackson notified. informed pt , dr jackson reviewing lab results
[2024-01-19 11:39] LABS: SARS-CoV-2 RNA PCR Negative (Negative)
[2024-01-19 11:48] LABS: Influenza A QL RT-PCR Negative (Negative); Influenza B QL RT-PCR Negative (Negative); RSV RNA, RT-PCR Negative (Negative)
== END 2024-01-19 11:22 | disposition home or self-care (01) ==
PROVIDERS: Emergency Provider Internal Medicine Critical Care Medicine
DX: R74.01 Elevation of levels of liver transaminase levels (principal); R07.1 Chest pain on breathing; J41.0 Simple chronic bronchitis; F17.210 Nicotine dependence, cigarettes, uncomplicated; Z79.899 Other long term (current) drug therapy; Z20.822 Contact with and (suspected) exposure to COVID-19
CPT/HCPCS: 36415; 71045; 80053; 83605; 84484; 85025; 85055; 85380; 85610; 85730; 87637; 93005; 99283

== ENCOUNTER 2024-05-25 14:03 | Outpatient (CLI) | payer OTHER, SELFPAY ==
--- NOTE | ~2024-05-25 | XR_ITS ---
HISTORY: LEFT KNEE PAIN for 2 months post sx COMPARISON: None TECHNIQUE: 3 views of the left knee were performed FINDINGS: No acute or subacute fracture, erosion, lytic or sclerotic lesion. No significant tibiofemoral joint space narrowing is identified. No suprapatellar joint effusion is identified. The infrapatellar joint space is clear. IMPRESSION: Unremarkable plain film evaluation of the left knee, as detailed above. Reviewed, dictated and finalized at location A. T FURNACE CHECKER IMPRESSION: Unremarkable plain film evaluation of the left knee, as detailed a vadim.
--- OUTSIDE RECORDS SUMMARY | 2024-05-26 05:33 | XMS_ITS ---
Care Plan - [facility] Created on: May 26, 2024 OTIS SHRESTHA : 1995 Sex: Male Author Organization [facility] Address [address] [place] [phone] Phone Care Team Providers Care [employer] Name Role Phone TOM KNOTT, JEANNE Deluca Unavailable [phone] [place] ALBERTS, LUZ MARIA Neff Primary Care Provider [phone]
--- OUTSIDE RECORDS SUMMARY | 2024-05-26 05:33 | XMS_ITS ---
Author Organization [facility] Address [address] [place] [phone] Phone Care Team Providers Care Foam Fabricator Name Role Phone TOM KNOTT, JEANNE L Unavailable [phone] [place] ALBERTS, LUZ MARIA Neff Primary Care Provider [phone] Plan of Treatment Findings Encounter Date Ordered follow-up visit next month MED CHECK wit h DEE DEE ESPINAL M.D. 08/11/2011 Last Documented On 2 11:28AM ; [facility] Ordered follow-up visit in 2 months ADHD CK-UP w [facility] DEE DEE ESPINAL M.D. 07/16/2011 Last Documented On 2 4:01PM ; [facility] Ordered follow-up visit next month ADHD CK-UP wi DEE DEE ESPINAL M.D. 06/04/2011 Last Documented On 2 2:33PM ; [facility] Ordered follow-up visit NOTE : above rx are errors correct dose Ritalin sr 20 mg 3 60 . 2 bid MED CHECK with DEE DEE ESPINAL M.D. 04/20/2011 Last Documented On 1 11:01AM ; [facility] Ordered follow-up visit next month NOTE: apparently metadate cd not covered by medical card. will change it to methylin er 20 mg od ADHD CK-UP with DEE DEE ESPINAL M.D. 02/27/2011 Last Documented On 1 3:43PM ; [facility] Ordered follow-up visit next month ADHD CK-UP wi DEE DEE ESPINAL M.D. 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 12/29/2010 Last Documented On 1 8:00PM ; [facility] Ordered follow-up visit next week, patient has adhd on concerta, will deaL WITH HIS CHRONIC PROBLEM NEXT visit NEW PATIENT VISIT with DEE DEE ESPINAL M.D. 12/08/2010 Last Documented On 1 2:35PM ; [facility] Pending Tests Order Diagnosis Results Due Ordering Sampson luna Radiology @ other - MRI MRI Lumbar w/o contrast Spinal stenosis, lumbar region with neurogenic claudication 07/08/23 JEANNE SANTOS [facility]- Last Documented On 4 9:12AM ; [facility] Therapy - Physical Therapy Physical Therapy Spinal stenosis, lumbar region with neurogenic claudication 07/19/23 JEANNE SANTOS ANP- Last Documented On 4 9:11AM ; [facility] Instructions to patient Maintain a healthy diet Last Documented On 1 4:06PM ; [facility] No Special Instructions or D evices Last Documented On 1 4:06PM ; [facility] Education and Decision Aids were provided during visit for: Anticipatory guidance: limit computer and video time Last Documented On 1 4:07PM ; [facility] Discussed safety practices Last Documented On 1 4:06PM ; [facility] Discussed use of seat belts Last Documented On 1 4:07PM ; [facility] Discussed 'child-proofing' t he house advised to remove guns from home or keep unloaded and locked away Last Documented On 1 4:07PM ; [facility] Discussed bicycle safety Last Documented On 1 4:07PM ; [facility] Discussed sports safety Last Documented On 1 4:07PM ; [facility] Discussed nutritional needs Last Documented On 1 4:06PM ; [facility] Discussed education and care er Last Documented On 1 4:06PM ; [facility] Discussed activities Last Documented On 1 4:06PM ; [facility] Discussed activities supervi se activities with peers Last Documented On 1 4:07PM ; [facility] Discussed concerns Last Documented On 1 4:06PM ; [facility] Discussed concerns about exe rcise : promote physical activity Last Documented On 1 4:07PM ; [facility] Discussed concerns about dis cipline reinforce limits, family rules, homework and chores Last Documented On 1 4:07PM ; [facility] Discussed concerns about tel evision : limit time spent watching Last Documented On 1 4:07PM ; [facility] Discussed concerns about sex ual activity Last Documented On 1 4:07PM ; [facility] Discussed concerns about uns afe sexual practices Last Documented On 1 4:07PM ; [facility] Discussed concerns about tob acco use alcoholic counselor to avoid~ Last Documented On 1 4:07PM ; [facility] Discussed concerns about alc ohol use alcoholic counselor to avoid Last Documented On 1 4:07PM ; [facility] Discussed concerns about ill icit drug use alcoholic counselor to avoid Last Documented On 1 4:07PM ; [facility] Assessments Includes: Assessments for all patient encounters Findings Encounter Date Lumbar radiculopathy PAIN MANAGEMENT FOL LOW UP with JEANNE SANTOS ANP-BC 07/19/2023 Last Documented On 4 10:02AM ; [facility] Lumbar spondylosis with radiculopathy PA IN MANAGEMENT FOLLOW UP with JEANNEKIKA DRIVERS ANP-BC 07/19/2023 Last Documented On 4 10:02AM ; [facility] Lumbar stenosis with neuroge milo claudication PAIN MANAGEMENT FOLLOW UP with JEANNE L TOM ANP-BC 07/19/2023 Last Documented On 4 10:02AM ; [facility] Lumbar radiculopathy TELEHEALTH with JEANNE Sandrine ANDREA MORALES ANP-BC 06/14/2023 Last Documented On 4 1:37PM ; [facility] Lumbar spondylosis with radiculopathy TE LEHEALTH with JEANNE L TOM ANP-BC 06/14/2023 Last Documented On 4 1:37PM ; [facility] Lumbar stenosis with neuroge milo claudication TELEHEALTH with JEANNE L TOM ANP-BC 06/14/2023 Last Documented On 4 1:37PM ; [facility] Lumbar radiculopathy PAIN MANAGEMENT NEW CONSULT with JEANNE L TOM ANP-BC 05/17/2023 Last Documented On 4 12:41PM ; [facility] Lumbar spondylosis with radiculopathy PA IN MANAGEMENT NEW CONSULT with JEANNE L TOM ANP-BC 05/17/2023 Last Documented On 4 12:41PM ; [facility] Lumbar stenosis with neuroge milo claudication PAIN MANAGEMENT NEW CONSULT with JEANNE L TOM ANP-BC 05/17/2023 Last Documented On 4 12:41PM ; [facility] ADHD, predominantly inattentive type MED CHECK w ith DEE DEE ESPINAL M.D. 08/11/2011 Last Documented On 2 11:28AM ; [facility] Attention-deficit hyperactivity disorder MED CHECK with DEE DEE ESPINAL M.D. 08/11/2011 Last Documented On 2 11:28AM ; [facility] ADHD, predominantly inattentive type ADHD CK-UP with DEE DEE ESPINAL M.D. 07/16/2011 Last Documented On 2 4:01PM ; [facility] Attention-deficit hyperactivity disorder ADHD CK-UP with DEE DEE ESPINAL M.D. 07/16/2011 Last Documented On 2 4:01PM ; [facility] ADHD, predominantly inattentive type ADHD CK-UP with DEE DEE ESPINAL M.D. 06/04/2011 Last Documented On 2 2:33PM ; [facility] Attention-deficit hyperactivity disorder ADHD CK-UP with DEE DEE Neff.Meredith 06/04/2011 Last Documented On 2 2:33PM ; [facility] ADHD, predominantly inattentive type MED CHECK w ith DEE DEE Neff.Meredith 04/20/2011 Last Documented On 1 11:01AM ; [facility] Attention-deficit hyperactivity disorder MED CHECK with DEE DEE Neff.Meredith 04/20/2011 Last Documented On 1 11:01AM ; [facility] ADHD, predominantly inattentive type ADHD CK-UP with DEE DEE Neff.Meredith 02/27/2011 Last Documented On 1 3:43PM ; [facility] Attention-deficit hyperactivity disorder ADHD CK-UP with DEE DEEMODESTO Neff.Meredith 02/27/2011 Last Documented On 1 3:43PM ; [facility] ADHD, predominantly inattentive type ADHD CK-UP with DEE DEE Neff.Meredith 02/09/2011 Last Documented On 1 10:58AM ; [facility] Attention-deficit hyperactivity disorder ADHD CK-UP with DEE DEE Neff.Meredith 02/09/2011 Last Documented On 1 10:58AM ; [facility] Ankle sprain left, resolved RECHECK with DEE DEE Neff.Meredith 12/29/2010 Last Documented On 1 8:00PM ; [facility] Attention-deficit hyperactivity disorder RECHECK with DEE DEE Neff.Meredith 12/29/2010 Last Documented On 1 8:00PM ; [facility] Obesity RECHECK with DEE DEE Neff.Meredith 12/29/2010 Last Documented On 1 8:00PM ; [facility] Sprain left foot HOSPITAL FOLLOW UP EXAM with LEDA ESPINAL M.D. 12/22/2010 Last Documented On 1 4:41PM ; [facility] Patient is approved for part icipation in School, Physical Education, and Sports for 1 year NEW PATIENT VISIT with DEE DEE ESPINAL M.D. 12/08/2010 Last Documented On 1 2:35PM ; [facility] Normal routine history and p hysical adolescent (12 - 18) NEW PATIENT VISIT with DEE DEE ESPINAL M.D. 12/08/2010 Last Documented On 1 2:35PM ; [facility] SCHOOL/SPORT PHYSICAL NEW PATIENT VISIT with LELAND ESPINAL M.D. 12/08/2010 Last Documented On 1 2:35PM ; [facility] Instructions Includes: Instructions for all patient encounters Instructions to patient Maintain a healthy diet Last Documented On 1 4:06PM ; [facility] No Special Instructions or D evices Last Documented On 1 4:06PM ; [facility] Education and Decision Aids were provided during visit for: Anticipatory guidance: limit computer and video time Last Documented On 1 4:07PM ; [facility] Discussed safety practices Last Documented On 1 4:06PM ; [facility] Discussed use of seat belts Last Documented On 1 4:07PM ; [facility] Discussed 'child-proofing' t he house advised to remove guns from home or keep unloaded and locked away Last Documented On 1 4:07PM ; [facility] Discussed bicycle safety Last Documented On 1 4:07PM ; [facility] Discussed sports safety Last Documented On 1 4:07PM ; [facility] Discussed nutritional needs Last Documented On 1 4:06PM ; [facility] Discussed education and care er Last Documented On 1 4:06PM ; [facility] Discussed activities Last Documented On 1 4:06PM ; [facility] Discussed activities supervi se activities with peers Last Documented On 1 4:07PM ; [facility] Discussed concerns Last Documented On 1 4:06PM ; [facility] Discussed concerns about exe rcise : promote physical activity Last Documented On 1 4:07PM ; [facility] Discussed concerns about dis cipline reinforce limits, family rules, homework and chores Last Documented On 1 4:07PM ; [facility] Discussed concerns about tel evision : limit time spent watching Last Documented On 1 4:07PM ; [facility] Discussed concerns about sex ual activity Last Documented On 1 4:07PM ; [facility] Discussed concerns about uns afe sexual practices Last Documented On 1 4:07PM ; [facility] Discussed concerns about tob acco use alcoholic counselor to avoid~ Last Documented On 1 4:07PM ; [facility] Discussed concerns about alc ohol use alcoholic counselor to avoid Last Documented On 1 4:07PM ; [facility] Discussed concerns about ill icit drug use alcoholic counselor to avoid Last Documented On 1 4:07PM ; [facility] Medical Equipment - Implanted Devices Includes: Current and historical Devices No Medical Equipment Recorded Medications Includes: Current and historical Medications Current Medications (continue as prescribed) Cyclobenzaprine HCl 10 MG Oral Tablet 06/14/2023 Provider: JEANNE KNOTT Diagnosis: Spinal stenosis, lumbar region with neurogenic claudication 1/2 t o1 po bid prn Last Documented On 4 1:39PM By JEANNE KNOTT ; [facility] Diclofenac Sodium 75 MG Oral Tablet Delayed Release 06/14/2023 Provider: JEANNE WILKS Diagnosis: Radiculopathy, l umbar region 1 po bid prndo not take with other nsaids Last Documented On 4 1:39PM By JEANNE KNOTT ; [facility] Pregabalin 150 MG Oral Capsule 06/14/2023 Provider: JEANNE WILKS Diagnosis: Radiculopathy, l umbar region 1 CAPSULE TWO TIMES A DAY Last Documented On 4 1:39PM By JEANNE KNOTT ; [facility] Atorvastatin Calcium 20 MG Oral Tablet 05/17/2023 Pr ovider: Diagnosis: Last Documented On 4 10:36AM By Rona DRAPER ; [facility] Past Medications on file Gabapentin 600 MG Oral Tablet 05/17/2023 - 07/19/2023 Provider: JEANNE KNOTT Diagnosis: Spinal stenosis, lumbar region with neurogenic claudication One tablet three times a day Last Documented On 07/19/2023 9:08AM By Rona DRAPER ; [facility] Cyclobenzaprine HCl 5 MG Oral Tablet 05/17/2023 - 06/03 Provider: Diagnosis: Last Documented On 4 1:36PM [facility] ; [facility] Meloxicam 7.5 MG Oral Tablet 05/17/2023 - 06/14/2023 P ninader: Diagnosis: Last Documented On 4 1:37PM By [facility] ; [facility] Ritalin SR 20 MG OR TBCR 08/11/2011 - 09/10/2011 Provider: DEE DEE Huang Diagnosis: ATTN DEFIC NONHY PERACT 2 tabs od Last Documented On 08/11/2011 10:22AM By DEE DEE ESPINAL MD ; [facility] Ritalin SR 20 MG OR TBCR 07/16/2011 - 08/11/2011 Provider: DEE DEE Huang Diagnosis: ATTN DEFIC NONHY PERACT 2 tabs od Last Documented On 08/11/2011 10:22AM By DEE DEE ESPINAL MD ; [facility] Ritalin SR 20 MG OR TBCR 06/04/2011 - 07/16/2011 Provider: DEE DEE Huang Diagnosis: ATTN DEFIC NONHY PERACT 2 tabs od Last Documented On 07/16/2011 4:00PM By DEE DEE ESPINAL MD ; [facility] Ritalin SR 20 MG OR TBCR 04/20/2011 - 06/04/2011 Provider: DEE DEE Huang Diagnosis: ATTN DEFIC NONHY PERACT 2 tabs od Last Documented On 06/04/2011 1:44PM By DEE DEE ESPINAL MD ; [facility] Ritalin SR 10 MG OR TABS 04/20/2011 - 05/20/2011 Provider: DEE DEE Huang Diagnosis: ATTN DEFIC NONHY PERACT 2 tabs Last Documented On 04/20/2011 3:26PM By DEE DEE ESPINAL MD ; [facility] Ritalin SR 20 MG OR TBCR 04/20/2011 - 05/04/2011 Provi sandeep: DEE DEE ESPINAL M.D. Diagnosis: Last Documented On 04/20/2011 3:15PM By DEE DEE ESPINAL MD ; [facility] Ritalin SR 20 MG OR TBCR 04/03/2011 - 04/20/2011 Provi sandeep: Diagnosis: Last Documented On 04/20/2011 3:15PM By DEE DEE ESPINAL MD ; [facility] Metadate CD 30 MG OR CPCR 02/27/2011 - 04/20/2011 Provider: DEE DEE Huang Diagnosis: ATTN DEFICIT W HYPERACT Last Documented On 04/20/2011 3:09PM By MELBA TYSON MA ; [facility] Concerta 54 MG OR TBCR 02/09/2011 - 04/03/2011 Provide r: Diagnosis: Last Documented On 04/03/2011 2:25PM By MELBA TYSON MA ; [facility] Medications Administered Includes: Administered Medications in patient's chart No Administered Medications Recorded Vital Signs Includes: Vital Signs from 05/26/2023 through 05/26/2024 Vital Name 07/19/2023 09:02A 06/14/2023 01: 08P Blood Pressure Sitting R 120/86 Pulse Rate-Sitting (bpm) 113 Temp-Temporal 96.7 Height (in) 68 68 Weight (lb) 339 330 Body Mass Index 51.5 50.2 Body Surface Area 2.6 2.5 Pain Level 8 10 Oxygen Saturation (%) 97 Temp-Oral (F) 98.6 Last Documented: On 07/19/2023 9:05AM ; [facility] On 06/14/2023 1:30PM ; [facility] Results Includes: Results from 05/26/2023 through 05/26/2024 No Results Recorded For Specified Dates History of Present Illness History of Present Illness not supported for this document type No History of Present Illness Recorded Social History Description Last Updated Not using drugs 07/19/2023 Last Documented On 4 10:02AM ; [facility] Current smoker 06/14/2023 Last Documented On 4 1:37PM ; [facility] Alcohol 05/17/2023 Last Documented On 4 12:41PM ; [facility] Amount of alcohol per day: 0 05/17/2023 Last Documented On 4 12:41PM ; [facility] Difficulty walking 05/17/2023 Last Documented On 4 12:41PM ; [facility] Smoking packs of cigarettes per day 2 Last Documented On 4 12:41PM ; [facility] Nutritional quality of diet 12/08/2010 Last Documented On 1 2:35PM ; [facility] Nutritious and satisfying diet 1 Last Documented On 1 2:35PM ; [facility] The racial background was unknown ethnic minority 12/08/2010 Last Documented On 1 2:35PM ; [facility] No tobacco use 12/08/2010 Last Documented On 1 2:35PM ; [facility] Not using alcohol 12/08/2010 Last Documented On 1 2:35PM ; [facility] Occupation STUDENT 12/08/2010 Last Documented On 1 3:10PM ; [facility] Single 12/08/2010 Last Documented On 1 3:10PM ; [facility] Smoking Status Unknown Procedures and Surgical History Includes: Procedures from 05/26/2023 through 05/26/2024 Procedures Code Diagnosis Performing Provider Service Location Service Date CLINIC VISIT T1015 Spinal stenosis, lumbar region with neurogenic claudication, Other spondylosis with radiculopathy, lumbar region, Radiculopathy, lumbar region JEANNE [facility] 07/19/2023 Last Documented On 4 3:05PM ; [facility] CLINIC VISIT (VIA for; to (do) Centers [employer]) T1015 Spinal stenosis, lumbar region with neurogenic claudication, Other spondylosis with radiculopathy, lumbar region, Radiculopathy, lumbar region JEANNE [facility] 06/14/2023 Last Documented On 4 3:13PM ; [facility] Surgical History Last Updated No Pacemaker 07/19/2023 Last Documented On 4 10:02AM ; [facility] Surgical / procedural history Yes 2023 Last Documented On 4 12:41PM ; [facility] History of tonsillectomy 12/08/2010 Last Documented On 1 3:10PM ; [facility] Medical History Includes: Medical History in patient's chart Description Last Updated No Pain Pump 07/19/2023 Last Documented On 4 10:02AM ; [facility] No Spinal cord stimulator 07/19/2023 Last Documented On 4 10:02AM ; [facility] No Ultrasound No 07/19/2023 Last Documented On 4 10:02AM ; [facility] CT/MRI Yes 05/17/2023 Last Documented On 4 12:41PM ; [facility] Deep muscle stimulation 05/17/2023 Last Documented On 4 12:41PM ; [facility] Injection/Nerve blocks 05/17/2023 Last Documented On 4 12:41PM ; [facility] Message/Acupressure 05/17/2023 Last Documented On 4 12:41PM ; [facility] Myelogram Yes 05/17/2023 Last Documented On 4 12:41PM ; [facility] NCV/EMG Yes 05/17/2023 Last Documented On 4 12:41PM ; [facility] Physical therapy 05/17/2023 Last Documented On 4 12:41PM ; [facility] Please list all illnesses/conditions you have been diagnosed with: Copd 05/17/2023 Last Documented On 4 12:41PM ; [facility] Please list all surgeries: Legs had fat removed 201205/17/2023 Last Documented On 4 12:41PM ; [facility] Severe Pain 05/17/2023 Last Documented On 4 12:41PM ; [facility] X-rays Yes 05/17/2023 Last Documented On 4 12:41PM ; [facility] No other medical history reported Signs of Insulin Resistance 12/08/2010 Last Documented On 1 2:35PM ; [facility] A PPD was negative 12/08/2010 Last Documented On 1 2:35PM ; [facility] Blood pressure was not high 12/08/2010 Last Documented On 1 2:35PM ; [facility] No cardiac problems 12/08/2010 Last Documented On 1 2:35PM ; [facility] No exposure to tuberculosis 12/08/2010 Last Documented On 1 2:35PM ; [facility] No hearing problems 12/08/2010 Last Documented On 1 2:35PM ; [facility] No heart murmur 12/08/2010 Last Documented On 1 2:35PM ; [facility] No history of asthma 12/08/2010 Last Documented On 1 2:35PM ; [facility] No history of concussion 12/08/2010 Last Documented On 1 2:35PM ; [facility] No history of delayed milestones 011 Last Documented On 1 2:35PM ; [facility] No history of diabetes mellitus 12/09/19 11 Last Documented On 1 2:35PM ; [facility] No history of hematologic disorder 12/08 Last Documented On 1 2:35PM ; [facility] No history of sickle cell abnormality Last Documented On 1 2:35PM ; [facility] No loss of function of one of paired org ans 12/08/2010 Last Documented On 1 2:35PM ; [facility] No orthopedic problems 12/08/2010 Last Documented On 1 2:35PM ; [facility] No previous hospitalizations 12/08/2010 Last Documented On 1 2:35PM ; [facility] No recent examination by an ophthalmolog ist 12/08/2010 Last Documented On 1 2:35PM ; [facility] No recent severe illness or injury 12/08 Last Documented On 1 2:35PM ; [facility] No Surgery 12/08/2010 Last Documented On 1 2:35PM ; [facility] No trauma to the head 12/08/2010 Last Documented On 1 2:35PM ; [facility] Not born with congenital abnormalities 0 12/08/2010 Last Documented On 1 2:35PM ; [facility] Not carrying hemophilia A 12/08/2010 Last Documented On 1 2:35PM ; [facility] TAKES CONCERTA 12/08/2010 Last Documented On 1 3:10PM ; [facility] Surgery 2010-CLOSED REDUCTION RT WRIST 0 12/08/2010 Last Documented On 1 3:10PM ; [facility] Family History Includes: Family History in patient's chart Description Last Updated Maternal history of Arthritis 07/19/2023 Last Documented On 4 10:02AM ; [facility] Maternal history of family history of is chemic heart disease 07/19/2023 Last Documented On 4 10:02AM ; [facility] Maternal history of reported family hist ory of seizures 07/19/2023 Last Documented On 4 10:02AM ; [facility] No family history of diabetes mellitus 0 12/08/2010 Last Documented On 1 2:35PM ; [facility] No sudden early deaths 12/08/2010 Last Documented On 1 2:35PM ; [facility] Review of Systems Review of Systems not supported for this document type No Review of Systems Recorded Mental Status No Mental Status Recorded Functional Status No Functional Status Recorded Physical Exam Physical Exam not supported for this document type No Physical Exam Recorded Allergies Includes: Active, inactive, and resolved Allergies Substance Type Reaction Onset Date Resolved Date Statu s Penicillins Allergy Skin Rashes / Er uption of skin, Hives / Urticaria 05/17/2023 Active Last Documented On 4 9:07AM ; [facility] Latex Allergy Skin Rashes / Eruption of skin 4 Active Last Documented On 4 9:07AM ; [facility] Encounters Includes: Encounters from 05/26/2023 through 05/26/2024 Encounter Provider Location Date Check-In Time Check-Out Time Diagnosis * PHONE CALL YADIRA IQBAL MD [facility] 01/20/20 24 07/19/2023 9:02AM 07/19/2023 11:59PM * [facility] 07/19/2023 10:30AM 07/19/2023 11:59PM CHART UPDATE JEANNEKIKA WHITE[facility]OCHELLE [facility] 07/22/19 24 07/19/2023 1:12PM 07/19/2023 11:59PM * PH[facility] 24 07/19/2023 11:55AM 07/19/2023 11:59PM PAIN MANAGEMENT FOLLOW UP [facility] 07/19/19 8:55AM 9:42AM Lumbar Radiculopathy,Sp inal Stenosis Lumbar with Neurogenic Claudication,Spo ndylosis with Radiculopathy Lumbar Region [facility] 06/14/19 12:56PM 1:29PM Lumbar Radiculopathy,Sp inal Stenosis Lumbar with Neurogenic Claudication,Spo ndylosis with Radiculopathy Lumbar Region POST PROCEDURE PHONE CALL JEANNE Sandrine [facility] 05/31/19 24 05/17/2023 2:57PM 05/17/2023 11:59PM PROCEDURE OFFICE YADIRA IQBAL MD [facility] 05/27/19 24 05/17/2023 1:57PM 05/17/2023 11:59PM Insurance Includes: Active Insurance Policies Plan Name Member ID Group # Subscriber Relationship Effect ganesh Dates - [facility] [id number] [facility] Clinical Notes Includes: Signed Clinical Notes starting from 05/22/2022 * Progress note Date Encounter Last Documented by 07/20/2023 * PHONE CALL Last documented on 07/20/2023; 12:26 PM, [facility] Chief Complaint Phone Call - Chief Concern: reason for call:pt called with pill count #3 cyclobenzaprine #43 diclofenac #34 pregabalin pt phone # for return call:[phone] date/initials:07/20/23, kms. Past Medical/Surgical History Reported: Surgery 2009-CLOSED REDUCTION RT WRIST. Injection/Nerve blocks, Deep muscle stimulation, Physical therapy, Message/Acupressure, Please list all illnesses/conditions you have been diagnosed with: Copd, and Please list all surgeries: Legs had fat removed 2012. Medical: Severe Pain. Surgical / Procedural: Surgical / procedural history Yes. Tests: X-rays Yes, CT/MRI Yes, Myelogram Yes, and NCV/EMG Yes. TAKES CONCERTA. Surgical: - Tonsillectomy Current Medication - Atorvastatin Calcium 20 MG Oral Tablet One tablet daily 0 days, 0 refills - Cyclobenzaprine HCl 10 MG Oral Tablet 1/2 t o1 po bid prn, 15 days, 0 refills - Diclofenac Sodium 75 MG Oral Tablet Delayed Release 1 po bid prndo not take with other nsaids, 30 days, 0 refills - Pregabalin 150 MG Oral Capsule 1 CAPSULE TWO TIMES A DAY, 30 days, 0 refills Social History Difficulty walking. Racial background ethnic minority. Current diet: Nutritional quality of diet. Behavioral: Amount of alcohol per day: 0. Tobacco use: Cigarette smoking smoking packs of cigarettes per day 2. Alcohol: Alcohol. 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 Marital: Single. Allergies - Latex Reaction: Skin Rashes / Eruption of skin - Penicillins Reaction: Hives / Urticaria, Skin Rashes / Eruption of skin Plan StartCited - Other PHY ORDER/COMMENT ok. So just make sure he takes them consistently as prescribed for optimal symptom relief and take to pharmacy when it needs refilled EndCited Care Team - LUZ MARIA BOYLE MD - - REBECCA ROSASBC - Pain Management Health Reminders - Assess Tobacco Use satisfied 07/20/2023. * Progress note Date Encounter Last Documented by 07/19/2023 PAIN MANAGEMENT FOLLOW UP Last d ocumented on 07/19/2023; 10:02 AM, JEANNE [facility]IS-[facility]; [facility] Chief Complaint The Chief Complaint is: FU AFTER TELEHEALTH EMG WAS NORMAL MRI PENDING PT SIGNATURE FORM FOR APPEAL, SIGNED IN OFFICE TODAY C/O PAIN IN LEFT THIGH, NO RELIEF FROM PROCEDURE DONE IN MAY PT'S MOTHER IS HERE AND WOULD LIKE SOME ANSWERS , SHE STATES THE PT HAS NOT BEEN TO WORK AND IS HAVING TROUBLE GETTING HIS WEED CARD PT STATES IT HAS BEEN ORDERED BY SOMEONE ELSE IN [place] . History of Present Illness - Allergy list reviewed - Problem list reviewed - Medication reconciliation performed - Medication list reviewed - Prescription Drug Monitoring Program website checked. - Last dose of medication? - Pain is continuous - Primary pain location Leg all way to foot - Primary pain duration All day All night - Secondary pain duration All day - Secondary pain location Back Pain - Pain is burning - Pain is throbbing - Pain is dull, aching - Pain is shooting - Pain is sharp - Pain is pressure like - Pain is described as numbness - Pain is described as tingling - Pain is deep - Pain is stinging - Pain is heavy - Pain is tight - Pain is like pins/needles - Relieved by medication - Relieved by leaning forward - Relieved by massage - Relieved by touch/rub - Relieved by exercise/PT - Relieved by bracing - Pain aggravated getting in/out of car - Pain aggravated going down stairs - Pain aggravated going up stairs - Pain aggravated lying down - Pain aggravated sitting - Pain aggravated standing - Pain aggravated when out of chair - Pain aggravated by walking - Pain aggravated lifting - Pain aggravated by working - Pain aggravated by sex - Pain aggravated bending - Pain radiating in the left thigh - Pain radiates in left calf/simeon - Pain radiates in left foot Discussion: Patient is a follow-up for ongoing low back pain. He was seen via telehealth one month ago following a L5-S1 transforaminal epidural. This had not helped. Symptoms at that time had progressively worsened, with an increase in radicular symptoms. A new MRI was ordered at that time based on severity of symptoms, progressive neuropathic changes and limitation in daily activities. He attempted home exercises given from physical therapy, but feels these are difficult most of the time. He has underwent conservative care including activity modification, home lumbar exercises and medication with myself for 2 months and with pcp for 6 months prior. He continues to worsen. Nerve studies were unremarkable. He describes predominately left sided back pain with pain in the left posterolateral lower extremity extending into the foot. He is increasingly sedentary due to pain and reports some depression related to inability to be active. He denies suicidal ideation or plan. He is taking pregabalin and diclofenac, but should be out at this point. Discussed taking as prescribed for optimal benefit. Prior visit: Patient is a 27-year-old male referred for evaluation and treatment. Complains of left-sided low back/buttock pain with radiating pain to the posterior lower extremity extending into the foot. There is intermittent numbness and tingling in the same distribution. Pain is constant. Symptoms worsen with bending, squatting and activity in general. He finds it difficult to perform activities of daily living, participate in family activities and play with his son. Symptoms started approximately one year ago. He did approximately one week of physical therapy, but discontinued due to scheduling conflicts. He does mild stretches at home twice daily. He is been under the care of his PCP for this condition for at least 6 months. NSAIDs provide mild benefit. Flexeril is used as needed. Gabapentin 300 mg TID provided mild benefit, but still did not allow him to increased overall activity. Despite activity modification, medication and lumbar stretches, pain continues to limit everyday activities. He is no longer able to work due to pain. This is putting a financial strain on his family. We discussed MRI findings. He has mild stenosis in the lumbar spine. Recommend lumbar epidural at this time to address symptoms and in hopes of returning him to work relatively soon. Also recommending physical therapy again. He may continue Tylenol up to 3000 mg per day. Increasing gabapentin to 600 mg 3 times daily. Imaging: All relevant imaging available was personally reviewed with the patient today with the following tests and results noted: MRI L spine 06/11/22: 6- levocurvature of the lumbar spine. Mild chronic anterior wedging T11 and T 12. Decrease disc height T 11-12. Osseous central spinal canal developmentally small. Mild bilateral facet osteoarthritis T11 through S1. Mild central canal stenosis L1-S1. Foraminal narrowing L5-S1, mild. Test Conclusions PHQ-9 Score: 9 Date:05/17/23 BPI Score: Date: MiDAS Score: Date: SOAPP-R Score:18 MOD Date:05/17/23 OSWESTRY Score: 70% Date:05/17/23 Past Medical/Surgical History Reported: Surgery 2009-CLOSED REDUCTION RT WRIST. Injection/Nerve blocks, Deep muscle stimulation, Physical therapy, Message/Acupressure, Please list all illnesses/conditions you have been diagnosed with: Copd, and Please list all surgeries: Legs had fat removed 2013. Medical: Severe Pain. No Spinal cord stimulator and no Pain Pump. Surgical / Procedural: Surgical / procedural history Yes. No Pacemaker. Tests: X-rays Yes, CT/MRI Yes, and Myelogram Yes. No Ultrasound No. NCV/EMG Yes. TAKES CONCERTA. Surgical: - Tonsillectomy Current Medication - Atorvastatin Calcium 20 MG Oral Tablet One tablet daily 0 days, 0 refills - Cyclobenzaprine HCl 10 MG Oral Tablet 1/2 t o1 po bid prn, 15 days, 0 refills - Diclofenac Sodium 75 MG Oral Tablet Delayed Release 1 po bid prndo not take with other nsaids, 30 days, 0 refills - Pregabalin 150 MG Oral Capsule 1 CAPSULE TWO TIMES A DAY, 30 days, 0 refills Social History Difficulty walking. Racial background ethnic minority. Current diet: Nutritional quality of diet. Behavioral: Amount of alcohol per day: 0. Tobacco use: Cigarette smoking smoking packs of cigarettes per day 2. Alcohol: Alcohol. Drug Use: Not using drugs. 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 Marital: Single. Allergies - Latex Reaction: Skin Rashes / Eruption of skin - Penicillins Reaction: Hives / Urticaria, Skin Rashes / Eruption of skin Family History Maternal: Arthritis Reported family history of seizures Ischemic heart disease Review Of Systems Systemic: No systemic symptoms other than noted. Recent weight change. Head: No head symptoms other then noted. Neck: No neck pain. Cardiovascular: No chest pain or discomfort. Pulmonary: No dyspnea. Dyspnea. Gastrointestinal: No nausea and no constipation. Genitourinary: No urinary loss of control. Endocrine: Weakness. Hematologic: No easy bleeding and no tendency for easy bruising. Musculoskeletal: Back pain, ankle joint swelling, muscle aches, soft tissue swelling of the foot, muscle cramps, pain localized to one or more joints, and joint stiffness localized to one or more joints. Neurological: Dizziness. No motor disturbances and no sensory disturbances. Numbness. Psychological: Depression. Skin: No skin symptoms other than noted. Physical Findings - Vitals taken 07/19/2023 09:02 am BP-Sitting R 120/86 mmHg Pulse Rate-Sitting 113 bpm Temp-Temporal 96.7 F Height 68 in Weight 339 lbs Body Mass Index 51.5 kg/m2 Body Surface Area 2.6 m2 Pain Level 8 Pain Level Note LEFT THIGH Oxygen Saturation 97 % Musculoskeletal System: General/bilateral: Musculoskeletal Scales: Value Lumbar oswestry score 70 Psychiatric: Psychiatric: Value PHQ9 score: 9 Constitutional: Well developed. Well nourished. In no acute distress. HEENT: NC/AT. Anicteric. Clear Conjunctiva. PERRLA. MM's pink/moist. No discharge via nares. No lesions of EAC. No discharge of EAC. Neck supple. No lymphadenopathy in cervical chain bilaterally. CVS: No peripheral edema. Peripheral pulses palpable in all extremities. Pulmonary: Normal chest expansion bilaterally. Spine/MSK: Tenderness left lower lumbar facet joints. Tenderness left SI joint. Positive SLR on the left, negative on the right. Positive facet loading on the left. Negative Kacie maneuver bilaterally. Decrease lumbar range of motion and extension and rotation bilaterally. Gait: Not antalgic. No steppage gait. No Trendelenburg gait. No circumspected gait pattern. Heel walk normal. Toe walk normal. Tandem gait normal. Neuro: Awake. Alert. Oriented x3. DTR's intact in all extremities. DTR's equal in all extremities. No sensory deficit. No motor deficit. Psych: No apparent distress. Mood normal. Affect normal. No pain behaviors. Skin: No rash. Normal pigmentation. Normal temperature Tests Educational Testing: Questionnaires PHQ-9: Value SOAPP-R: total score 18 Assessment - Lumbar spondylosis with radiculopathy [M47.26 - Other spondylosis with radiculopathy, lumbar region] - Lumbar stenosis with neurogenic claudication [M48.062 - Spinal stenosis, lumbar region with neurogenic claudication] - Lumbar radiculopathy [M54.16 - Radiculopathy, lumbar region] Therapy - Assessment of suicide risk performed - Clinical summary provided to patient Patient understands and agrees with treatment plan. Questions answered. Discussed Recommend MRI lumbar spine and consideration of surgical consultation Try formal therapy, mild as tolerated. Continue HEP F/U after imaging Plan StartCited - Spinal stenosis, lumbar region with neurogenic claudication Therapy/Physical Therapy: Physical Therapy Instructions: Evaluate and Treat Alexander Justin EndCited Practice Management Use of tobacco assessment performed Review of medications documented; Standardized depression screening: positive for symptoms and for adult impression and score nine. A total of [35 ] minutes were spent on this patient's evaluation, as above, with greater than 50% of this time spent in direct [id number] counseling and coordination of care. Results of this interaction were communicated directly to the patient's referring and/or primary care provider. Multiple documents have been reviewed today in conjunction with her evaluation including online prescription monitoring database, laboratory data, imaging studies, previous specialist provider notes and primary care provider notes. For all patients on acute or chronic opioids, ongoing need for opioid analgesia is assessed at each visit with consideration of discontinuation or wean to lowest effective dose when possible and appropriate. Contents of this document have been edited for correctness, but may be subject to typographical or software architect errors. Verify all diagnoses, medications, dosages, and patient instructions with patient and/or the originator of this document. Care Team - LUZ MARIA BOYLE MD - - DEBBIE ROSAS- - Pain Management Health Reminders - Assess BMI satisfied 07/19/2023. - Assess Tobacco Use satisfied 07/19/2023. - Depression Screening satisfied 07/19/2023. - Follow up plan for Depression Screening satisfied 07/19/2023. * Progress note Date Encounter Last Documented by 06/14/2023 TELEHEALTH Last documented on 06/14/2023; 1:37 PM, JEANNE LEWIS-; [facility] Chief Complaint The Chief Complaint is: FU BL L5-S1 TFESI DONE 05/27/23, 0% RELIEF ONGOING. History of Present Illness - Allergy list reviewed - Allergy list reviewed - Problem list reviewed - Medication reconciliation performed - Medication list reviewed - Prescription Drug Monitoring Program website checked. - Last dose of medication? - Pain is continuous - Primary pain location Leg all way to foot - Primary pain duration All day All night - Secondary pain duration All day - Secondary pain location Back Pain - Pain is burning - Pain is throbbing - Pain is dull, aching - Pain is shooting - Pain is sharp - Pain is pressure like - Pain is described as numbness - Pain is described as tingling - Pain is deep - Pain is stinging - Pain is heavy - Pain is tight - Pain is like pins/needles - Relieved by medication - Relieved by leaning forward - Relieved by massage - Relieved by touch/rub - Relieved by exercise/PT - Relieved by bracing - Pain aggravated getting in/out of car - Pain aggravated going down stairs - Pain aggravated going up stairs - Pain aggravated lying down - Pain aggravated sitting - Pain aggravated standing - Pain aggravated when out of chair - Pain aggravated by walking - Pain aggravated lifting - Pain aggravated by working - Pain aggravated by sex - Pain aggravated bending - Pain radiating in the left thigh - Pain radiates in left calf/simeon - Pain radiates in left foot This visit was conducted with use of interactive audio and video telecommunication system with real time communication between the patient and the provider. All concerns discussed and addressed without physical examination completed. If at any time it was felt patient should be evaluated in the clinic, further arrangements would of been made. Verbal patient consent for visit obtained today. Discussion: Patient is a follow-up to a L5-S1 transforaminal epidural completed 2-3 weeks ago. He reports no relief with this procedure. Patient feels symptoms have progressively worsened and he can do very little other than play around without having severe pain. He describes back pain with radiating pain to the posterior lower extremities with numbness and tingling intermittently. Pain is mainly left-sided and extends to the foot. MRI last done one year ago. Based on worsening symptoms and disability, recommending a repeat lumbar MRI at this time to evaluate for further changes. We will refer him to a surgeon based on results. Gabapentin was increased to 600 mg 3 times daily at last visit. He does not feel this has helped. NSAIDs are providing little relief and he is out. Cyclobenzaprine helped mildly, but he needs a refill. Patient has been unable to start physical therapy due to pain. Not recommending therapy at this time until symptoms are better controlled. Past note: Patient is a 27-year-old male referred for evaluation and treatment. Complains of left-sided low back/buttock pain with radiating pain to the posterior lower extremity extending into the foot. There is intermittent numbness and tingling in the same distribution. Pain is constant. Symptoms worsen with bending, squatting and activity in general. He finds it difficult to perform activities of daily living, participate in family activities and play with his son. Symptoms started approximately one year ago. He did approximately one week of physical therapy, but discontinued due to scheduling conflicts. He does mild stretches at home twice daily. He is been under the care of his PCP for this condition for at least 6 months. NSAIDs provide mild benefit. Flexeril is used as needed. Gabapentin 300 mg TID provided mild benefit, but still did not allow him to increased overall activity. Despite activity modification, medication and lumbar stretches, pain continues to limit everyday activities. He is no longer able to work due to pain. This is putting a financial strain on his family. We discussed MRI findings. He has mild stenosis in the lumbar spine. Recommend lumbar epidural at this time to address symptoms and in hopes of returning him to work relatively soon. Also recommending physical therapy again. He may continue Tylenol up to 3000 mg per day. Increasing gabapentin to 600 mg 3 times daily. Imaging: All relevant imaging available was personally reviewed with the patient today with the following tests and results noted: MRI L spine 06/11/22: 6- levocurvature of the lumbar spine. Mild chronic anterior wedging T11 and T 12. Decrease disc height T 11-12. Osseous central spinal canal developmentally small. Mild bilateral facet osteoarthritis T11 through S1. Mild central canal stenosis L1-S1. Foraminal narrowing L5-S1, mild. Test Conclusions PHQ-9 Score: 9 Date:05/17/23 BPI Score: Date: MiDAS Score: Date: SOAPP-R Score:18 MOD Date:05/17/23 OSWESTRY Score: 70% Date:05/17/23 Past Medical/Surgical History Reported: Surgery 2009-CLOSED REDUCTION RT WRIST. Injection/Nerve blocks, Deep muscle stimulation, Physical therapy, Message/Acupressure, Please list all illnesses/conditions you have been diagnosed with: Copd, and Please list all surgeries: Legs had fat removed 2012. Medical: Severe Pain. Surgical / Procedural: Surgical / procedural history Yes. Tests: X-rays Yes, CT/MRI Yes, Myelogram Yes, and NCV/EMG Yes. TAKES CONCERTA. Surgical: - Tonsillectomy Current Medication - Atorvastatin Calcium 20 MG Oral Tablet One tablet daily 0 days, 0 refills - Cyclobenzaprine HCl 5 MG Oral Tablet One tablet three times a day 0 days, 0 refills - Gabapentin 600 MG Oral Tablet One tablet three times a day, 30 days, 0 refills Social History Difficulty walking. Racial background ethnic minority. Current diet: Nutritional quality of diet. Behavioral: Amount of alcohol per day: 0. Tobacco use: Cigarette smoking smoking packs of cigarettes per day 2. Alcohol: Alcohol. 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 Marital: Single. Allergies - Latex Reaction: Skin Rashes / Eruption of skin - Penicillins Reaction: Hives / Urticaria, Skin Rashes / Eruption of skin Review Of Systems Systemic: No fever and no chills. Cardiovascular: No chest pain or discomfort. Pulmonary: No dyspnea. Gastrointestinal: No constipation. Musculoskeletal: Lower back pain. Neurological: No motor disturbances and no sensory disturbances. Psychological: No anxiety and no depression. Skin: No rash. Physical Findings - Vitals taken 06/14/2023 01:08 pm Temp-Oral 98.6 F Height 68 in Weight 330 lbs Body Mass Index 50.2 kg/m2 Pain Level 10 Pain Level Note Back, BEHIND LEFT KNEE, LEFT ANKLE AND LEFT HIP General Appearance: - Normal. - In no acute distress. Neurological: - Oriented to time, place, and person. Psychiatric: - Mood was appropriate to the affect. Vital signs self reported by patient. Full exam not completed with telehealth visit Assessment - Lumbar spondylosis with radiculopathy [M47.26 - Other spondylosis with radiculopathy, lumbar region] - Lumbar stenosis with neurogenic claudication [M48.062 - Spinal stenosis, lumbar region with neurogenic claudication] - Lumbar radiculopathy [M54.16 - Radiculopathy, lumbar region] Therapy - Clinical summary provided to patient via portal/mailed. Patient understands and agrees with treatment plan. Questions answered. Discussed Recommend updated MRI due to progressing radicular symptoms. Initial MRI is out of proportion to amount of pain patient describes. I would like to evaluate for further nerve root impingement and consider surgical referral based on findings. Recommend nerve conduction studies. Stop gabapentin and start pregabalin. Start diclofenac BID PRN and cyclobenzaprine as needed Plan StartCited - Radiculopathy, lumbar region Pregabalin 150 MG capsule 1 CAPSULE TWO TIMES A DAY, 30 days, 0 refills Diclofenac Sodium 75 MG tablet 1 po bid prndo not take with other nsaids, 30 days, 0 refills EndCited StartCited - Spinal stenosis, lumbar region with neurogenic claudication Radiology @ other/MRI: MRI Lumbar w/o contrast Outside Procedures: Nerve Conduction Study, EMG Instructions: Bilateral lower extremity NCV/EMG Cyclobenzaprine HCl 10 MG tablet 1/2 t o1 po bid prn, 15 days, 0 refills EndCited Practice Management Use of tobacco assessment performed Review of medications documented. Care Team - LUZ MARIA BOYLE MD - - DEBBIE ROSAS- - Pain Management Health Reminders - Assess BMI satisfied 06/14/2023. - Assess Tobacco Use satisfied 06/14/2023. User Defined 27 Location for visit: Provider: Privacy of provider's office. [address] [place], [place] [id number] Patient: Patient personal setting Total time spent with patient via telecommunication minutes * Progress note Date Encounter Last Documented by 05/31/2023 POST PROCEDURE PHONE CALL Last d ocumented on 05/31/2023; 2:59 PM, Dnaa Corral RN; [facility] Top of Document Post-Procedural Patient Screening Questionnaire Date of Procedure: 05/27/23 Procedure: Bilateral L5-S1 TFESI 1. How have you felt since your last procedure? Pain is still a 10/10, no relief. Improved Same Worse 2. Pain level prior to procedure? 10/10 3. Pain level currently? 10/10 4. How long after procedure did symptoms begin? Denies Same pain but worse New Symptoms ? If new, describe: Improving Staying the same Getting worse 5. Any post procedure issues with injection? denies Heat Swelling Soreness Redness Streaking Injection site pain Bleeding Discharge/Drainage 6. Are you experiencing new numbness in the groin or saddle area? Yes No 7.New loss of bowel or bladder control? Yes No 8. Are you having any of the following symptoms? Denies Fever Chills Night Sweats Rigors/Shaking Chills Headaches Neck Stiffness Sensitivity to sound New muscle pain/Stiffness Weakness Nausea Vomiting Diarrhea Dizziness Rash Flushing Mood Irritability Blood Pressure changes Blood sugar changes Completed by Sharron Corral RN on 1/29/24 Past Medical/Surgical History Reported: Surgery 2009-CLOSED REDUCTION RT WRIST. Injection/Nerve blocks, Deep muscle stimulation, Physical therapy, Message/Acupressure, Please list all illnesses/conditions you have been diagnosed with: Copd, and Please list all surgeries: Legs had fat removed 2012. Medical: Severe Pain. Surgical / Procedural: Surgical / procedural history Yes. Tests: X-rays Yes, CT/MRI Yes, Myelogram Yes, and NCV/EMG Yes. TAKES CONCERTA. Surgical: - Tonsillectomy Current Medication - Atorvastatin Calcium 20 MG Oral Tablet One tablet daily 0 days, 0 refills - Cyclobenzaprine HCl 5 MG Oral Tablet One tablet three times a day 0 days, 0 refills - Gabapentin 600 MG Oral Tablet One tablet three times a day, 30 days, 0 refills - Meloxicam 7.5 MG Oral Tablet One tablet twice a day 0 days, 0 refills Social History Difficulty walking. Racial background ethnic minority. Current diet: Nutritional quality of diet. Behavioral: Amount of alcohol per day: 0. Tobacco use: Smoking packs of cigarettes per day 2. Alcohol: Alcohol. 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 Marital: Single. Allergies - Latex Reaction: Skin Rashes / Eruption of skin - Penicillins Reaction: Hives / Urticaria, Skin Rashes / Eruption of skin Care Team - LUZ MARIA BOYLE MD - - DEBBIE ROSAS- - Pain Management Health Reminders - Assess Tobacco Use satisfied 05/31/2023.
--- OUTSIDE RECORDS SUMMARY | 2024-05-26 05:33 | XMS_ITS | Clinical Summary ---
Author Organization [facility] Address [address] [place] [id number] Phone Care Team Providers Care Vice President For Instruction Name Role Phone TOM LEWIS-MARGARET, JEANNE Deluca Unavailable [phone] MON[place] ALBERTS, LUZ MARIA Neff Primary Care Provider [phone] Reason for Visit and Chief Complaint The Chief Complaint is: FU AFTER TELEHEALTH ~EMG WAS NORMAL ~MRI PENDING PT SIGNATURE FORM FOR APPEAL, SIGNED IN OFFICE TODAY ~C/O PAIN IN LEFT THIGH, NO RELIEF FROM PROCEDURE DONE IN MAY ~PT'S MOTHER IS HERE AND WOULD LIKE SOME ANSWERS , SHE STATES THE PT HAS NOT BEEN TO WORK AND IS HAVING TROUBLE GETTING HIS WEED CARD ~PT STATES IT HAS BEEN ORDERED BY SOMEONE ELSE IN [place] ~ ~ Plan of Treatment Pending Tests Order Diagnosis Results Due Ordering Sampson luna Radiology @ other - MRI MRI Lumbar w/o contrast Spinal stenosis, lumbar region with neurogenic claudication 07/08/23 JEANNE SANTOS ANP-BC Last Documented On 4 9:12AM ; [facility] Therapy - Physical Therapy Physical Therapy Spinal stenosis, lumbar region with neurogenic claudication 07/19/23 JEANNE SANTOS ANP-BC Last Documented On 4 9:11AM ; [facility] Assessments Includes: Assessments from this encounter Findings - Lumbar spondylosis with radiculopathy [M47.26 - Other spondylosis with radiculopathy, lumbar region] - Last Documented On 07/19/2023 10:02AM ; [facility] - Lumbar stenosis with neurogenic claudication [M48.062 - Spinal stenosis, lumbar region with neurogenic claudication] - Last Documented On 07/19/2023 10:02AM ; [facility] - Lumbar radiculopathy [M54.16 - Radiculopathy, lumbar region] - Last Documented On 07/19/2023 10:02AM ; [facility] Medical Equipment - Implanted Devices Includes: Current Devices No Medical Equipment Recorded Medications Includes: Medications discussed during this encounter and other current Medications Discontinued / Stopped on this date JEANNE KNOTT on 05/17/2023 Gabapentin 600 MG Oral Tablet Provider: JEANNE KNOTT Diagnosis: Spinal stenosis, lumbar region with neurogenic claudication Last Documented On 07/19/2023 9:08AM By Rona DRAPER ; [facility] Current Medications (continue as prescribed) Cyclobenzaprine HCl 10 MG Oral Tablet 06/14/2023 Provider: JEANNE KNOTT Diagnosis: Spinal stenosis, lumbar region with neurogenic claudication 1/2 t o1 po bid prn Last Documented On 4 1:39PM By JEANNE KNOTT ; [facility] Diclofenac Sodium 75 MG Oral Tablet Delayed Release 06/14/2023 Provider: JEANNE WILKS Diagnosis: Radiculopathy, l umbar region 1 po bid prndo not take with other nsaids Last Documented On 4 1:39PM By JEANNE KNOTT ; [facility] Pregabalin 150 MG Oral Capsule 06/14/2023 Provider: JEANNE WILKS Diagnosis: Radiculopathy, l umbar region 1 CAPSULE TWO TIMES A DAY Last Documented On 4 1:39PM By JEANNE KNOTT ; [facility] Atorvastatin Calcium 20 MG Oral Tablet 05/17/2023 Pr ovider: Diagnosis: Last Documented On 4 10:36AM By Rona DRAPER ; [facility] Past Medications on file Ritalin SR 20 MG OR TBCR 08/11/2011 - 09/10/2011 Provider: DEE DEE Huang Diagnosis: ATTN DEFIC NONHY PERACT 2 tabs od Last Documented On 08/11/2011 10:22AM By DEE DEE ESPINAL MD ; [facility] Ritalin SR 10 MG OR TABS 04/20/2011 - 05/20/2011 Provider: DEE DEE Huang Diagnosis: ATTN DEFIC NONHY PERACT 2 tabs Last Documented On 04/20/2011 3:26PM By DEE DEE ESPINAL MD ; [facility] Ritalin SR 20 MG OR TBCR 04/20/2011 - 05/04/2011 Provi sandeep: DEE DEE ESPINAL M.D. Diagnosis: Last Documented On 04/20/2011 3:15PM By DEE DEE ESPINAL MD ; [facility] Medications Administered Includes: Administered Medications from this encounter No Administered Medications Recorded Vital Signs Includes: Vital Signs from this encounter Vital Name 07/19/2023 09:02A Blood Pressure Sitting R 120/86 Pulse Rate-Sitting (bpm) 113 Temp-Temporal 96.7 Height (in) 68 Weight (lb) 339 Body Mass Index 51.5 Body Surface Area 2.6 Pain Level 8 Oxygen Saturation (%) 97 Last Documented: On 07/19/2023 9:05AM ; [facility] Results Includes: Results discussed during this encounter No Results Recorded For Specified Dates History of Present Illness Includes: History of Present Illness from this encounter HPI - Allergy list reviewed - Problem list [...] and results noted: MRI L spine 06/11/22: 6? levocurvature of the lumbar spine. Mild chronic anterior wedging T11 and T 12. Decrease disc height T 11-12. Osseous central spinal canal developmentally small. Mild bilateral facet osteoarthritis T11 through S1. Mild central canal stenosis L1-S1. Foraminal narrowing L5-S1, mild. Social History Description Last Updated Not using drugs 07/19/2023 Last Documented On 4 10:02AM ; [facility] Current smoker 06/14/2023 Last Documented On 4 8:57AM ; [facility] Alcohol 05/17/2023 Last Documented On 4 8:57AM ; [facility] Amount of alcohol per day: 0 05/17/2023 Last Documented On 4 8:57AM ; [facility] Difficulty walking 05/17/2023 Last Documented On 4 8:57AM ; [facility] Smoking packs of cigarettes per day 2 Last Documented On 4 8:57AM ; [facility] Nutritional quality of diet 12/08/2010 Last Documented On 4 8:57AM ; [facility] The racial background was unknown ethnic minority 12/08/2010 Last Documented On 4 8:57AM ; [facility] Occupation STUDENT 12/08/2010 Last Documented On 4 8:57AM ; [facility] Single 12/08/2010 Last Documented On 4 8:57AM ; [facility] Smoking Status Unknown Procedures and Surgical History Includes: Procedures from this encounter Procedures Code Diagnosis Performing Provider Service Location Service Date CLINIC VISIT T1015 Spinal stenosis, lumbar region with neurogenic claudication, Other spondylosis with radiculopathy, lumbar region, Radiculopathy, lumbar region JEANNE SANTOS ANP-BC [facility] 07/19/2023 Last Documented On 4 3:05PM ; [facility] use of tobacco assessment performed 1000F Last Documented On 4 8:57AM ; [facility] review of medications documented 1160F Last Documented On 4 8:57AM ; [facility] assessment of suicide risk performed Last Documented On 4 8:57AM ; [facility] screening for adult depression: impressi on and score nine Last Documented On 4 8:57AM ; [facility] standardized depression screening: posit ganesh for symptoms Last Documented On 4 8:57AM ; [facility] Clinical summary provided to patient ~ Patient understands and agrees with treatment plan. Questions answered Last Documented On 4 8:57AM ; [facility] SOAPP-R: total score 18 Last Documented On 4 8:57AM ; [facility] Surgical History Last Updated No Pacemaker 07/19/2023 Last Documented On 4 10:02AM ; [facility] Surgical / procedural history Yes 2023 Last Documented On 4 8:57AM ; [facility] History of tonsillectomy 12/08/2010 Last Documented On 4 8:57AM ; [facility] Medical History Includes: Medical History addressed during this encounter Description Last Updated No Pain Pump 07/19/2023 Last Documented On 4 10:02AM ; [facility] No Spinal cord stimulator 07/19/2023 Last Documented On 4 10:02AM ; [facility] No Ultrasound No 07/19/2023 Last Documented On 4 10:02AM ; [facility] CT/MRI Yes 05/17/2023 Last Documented On 4 8:57AM ; [facility] Deep muscle stimulation 05/17/2023 Last Documented On 4 8:57AM ; [facility] Injection/Nerve blocks 05/17/2023 Last Documented On 4 8:57AM ; [facility] Message/Acupressure 05/17/2023 Last Documented On 4 8:57AM ; [facility] Myelogram Yes 05/17/2023 Last Documented On 4 8:57AM ; [facility] NCV/EMG Yes 05/17/2023 Last Documented On 4 8:57AM ; [facility] Physical therapy 05/17/2023 Last Documented On 4 8:57AM ; [facility] Please list all illnesses/conditions you have been diagnosed with: Copd 05/17/2023 Last Documented On 4 8:57AM ; [facility] Please list all surgeries: Legs had fat removed 2013 05/17/2023 Last Documented On 4 8:57AM ; [facility] Severe Pain 05/17/2023 Last Documented On 4 8:57AM ; [facility] X-rays Yes 05/17/2023 Last Documented On 4 8:57AM ; [facility] TAKES CONCERTA 12/08/2010 Last Documented On 4 8:57AM ; [facility] Surgery 2009-CLOSED REDUCTION RT WRIST 0 12/08/2010 Last Documented On 4 8:57AM ; [facility] Family History Includes: Family History addressed during this encounter Description Last Updated Maternal history of Arthritis 07/19/2023 Last Documented On 4 10:02AM ; [facility] Maternal history of family history of is chemic heart disease 07/19/2023 Last Documented On 4 10:02AM ; [facility] Maternal history of reported family hist ory of seizures 07/19/2023 Last Documented On 4 10:02AM ; [facility] Review of Systems Includes: Review of Systems from this encounter Systemic: No systemic symptoms other than noted. [...] Skin: No skin symptoms other than noted. Mental Status Includes: Mental Status from this encounter No Mental Status Recorded Functional Status Includes: Functional Status from this encounter No Functional Status Recorded Physical Exam Includes: Physical Exam from this encounter Allergies Includes: Active Allergies Substance Type Reaction Onset Date Resolved Date Statu s Penicillins Allergy Skin Rashes / Er uption of skin, Hives / Urticaria 05/17/2023 Active Last Documented On 4 9:07AM ; [facility] Latex Allergy Skin Rashes / Eruption of skin 4 Active Last Documented On 4 9:07AM ; [facility] Encounters Encounter Provider Location Date Check-In Time Check-Out Time Diagnosis PAIN MANAGEMENT FOLLOW UP JEANNE SANTOS ANP-BC [facility] 07/19/19 24 8:55AM 9:42AM Lumbar Radiculopathy,Sp inal Stenosis Lumbar with Neurogenic Claudication,Spo ndylosis with Radiculopathy Lumbar Region Insurance Includes: Active Insurance Policies Plan Name Member ID Group # Subscriber Relationship Effect ganesh Dates 1 - [facility] [id number] OTIS Aishwarya [facility]IEFormerly [facility] Clinical Notes Includes: Clinical Notes from this encounter * Progress note Date Encounter Last Documented by 07/19/2023 PAIN MANAGEMENT FOLLOW UP Last d ocumented on 07/19/2023; 10:02 AM, JEANNE LEWIS-MARGARET; [facility] Chief Complaint The Chief Complaint is: FU AFTER TELEHEALTH EMG WAS NORMAL MRI PENDING PT SIGNATURE FORM FOR APPEAL, SIGNED IN OFFICE TODAY C/O PAIN IN LEFT THIGH, NO RELIEF FROM PROCEDURE DONE IN [place] PT'S MOTHER IS HERE AND WOULD LIKE SOME ANSWERS , SHE STATES THE PT HAS NOT BEEN TO WORK AND IS HAVING TROUBLE GETTING HIS WEED CARD PT STATES IT HAS BEEN ORDERED BY SOMEONE ELSE IN [place] . History of Present Illness - Allergy [...] had fat removed 2012. Medical: Severe Pain. No Spinal cord stimulator [...] 50% of this time spent in direct [id number] counseling and coordination of care. Results of [...] but may be subject to typographical or machinist mate errors. Verify all diagnoses, medications, dosages, and [...]
--- OUTSIDE RECORDS SUMMARY | 2024-05-26 05:33 | XMS_ITS | Clinical Summary ---
Author Organization [facility] Address [address] [place] [phone] Phone Care Team Providers Care Utilization Supervisor Name Role Phone TOM KNOTT, JEANNE Mondragon [phone] [place] ALBERTS, LUZ MARIA Neff Primary Care Provider [phone] Reason for Visit and Chief Complaint * PHONE CALL Plan of Treatment Pending Tests Order Diagnosis Results Due Ordering P rovider Radiology @ other - MRI MRI Lumbar w/o contrast Spinal stenosis, lumbar region with neurogenic claudication 07/08/23 JEANNE KNOTT Last Documented On 4 9:12AM ; [facility] Therapy - Physical Therapy Physical Therapy Spinal stenosis, lumbar region with neurogenic claudication 07/19/23 JEANNE KNOTT Last Documented On 4 9:11AM ; [facility] Assessments Includes: Assessments from this encounter No Assessments Recorded Medical Equipment - Implanted Devices Includes: Current Devices No Medical Equipment Recorded Medications Includes: Medications discussed during this encounter and other current Medications Current Medications (continue as prescribed) Cyclobenzaprine HCl 10 MG Oral Tablet 06/14/2023 Provider: JEANNE KNOTT Diagnosis: Spinal stenosis, lumbar region with neurogenic claudication 1/2 t o1 po bid prn Last Documented On 4 1:39PM By JEANNE KNOTT ; [facility] Diclofenac Sodium 75 MG Oral Tablet Delayed Release 06/14/2023 Provider: JEANNE WILKS Diagnosis: Radiculopathy, l umbar region 1 po bid prndo not take with other nsaids Last Documented On 4 1:39PM By JEANNE KNOTT ; [facility] Pregabalin 150 MG Oral Capsule 06/14/2023 Provider: JEANNE WILKS Diagnosis: Radiculopathy, l umbar region 1 CAPSULE TWO TIMES A DAY Last Documented On 4 1:39PM By JEANNE KNOTT ; [facility] Atorvastatin Calcium 20 MG Oral Tablet 05/17/2023 Pr ovider: Diagnosis: Last Documented On 4 10:36AM By Rona DRAPER ; [facility] Medications Administered Includes: Administered Medications from this encounter No Administered Medications Recorded Results Includes: Results discussed during this encounter No Results Recorded For Specified Dates History of Present Illness Includes: History of Present Illness from this encounter No History of Present Illness Recorded Social History No Social History Recorded - Smoking Status Unknown Medical History Includes: Medical History addressed during this encounter No Medical History Recorded Family History Includes: Family History addressed during this encounter No Family History Recorded Review of Systems Includes: Review of Systems from this encounter No Review of Systems Recorded Mental Status Includes: Mental Status from this encounter No Mental Status Recorded Functional Status Includes: Functional Status from this encounter No Functional Status Recorded Physical Exam Includes: Physical Exam from this encounter No Physical Exam Recorded Allergies Includes: Active Allergies Substance Type Reaction Onset Date Resolved Date Statu s Penicillins Allergy Skin Rashes / Er uption of skin, Hives / Urticaria 05/17/2023 Active Last Documented On 4 9:07AM ; [facility] Latex Allergy Skin Rashes / Eruption of skin 4 Active Last Documented On 4 9:07AM ; [facility] Encounters Encounter Provider Location Date Check-In Time Check-Out Time Diagnosis * PHONE CALL JEANNE KNOTT 09/20/2023 10:30AM 11:59PM Insurance Includes: Active Insurance Policies Plan Name Member ID Group # Subscriber Relationship Effect ganesh Dates - [facility] [id number] OTIS Ruff Clinical Notes Includes: Clinical Notes from this encounter No Clinical Notes Recorded
--- OUTSIDE RECORDS SUMMARY | 2024-05-26 05:33 | XMS_ITS | Clinical Summary ---
Author Organization [facility] [[email or web address] Address [address] [place] [phone] Phone Care Team Providers Care Freight Conductor Name Role Phone TOM KNOTT, JEANNE Mondragon [phone] [place] ALBERTS, LUZ MARIA Neff Primary Care Provider [phone] Reason for Visit and Chief Complaint CHART UPDATE Plan of Treatment Pending Tests Order Diagnosis Results Due Ordering P rovisandeep Radiology @ other - MRI MRI Lumbar w/o contrast Spinal stenosis, lumbar region with neurogenic claudication 07/08/23 JEANNE KNOTT Last Documented On 4 9:12AM ; [facility] [[email or web address] Therapy - Physical Therapy Physical Therapy Spinal stenosis, lumbar region with neurogenic claudication 07/19/23 JEANNE KNOTT Last Documented On 4 9:11AM ; [facility] [[email or web address]] Assessments Includes: Assessments from this encounter No [...] On 4 1:39PM By JEANNE KNOTT ; [facility] [[email or web address]] Diclofenac Sodium 75 MG Oral Tablet Delayed Release 06/14/2023 Provider: JEANNE WILKS Diagnosis: Radiculopathy, l umbar region 1 po bid prndo not take with other nsaids Last Documented On 4 1:39PM By JEANNE KNOTT ; [facility] Pregabalin 150 MG Oral Capsule 06/14/2023 Provider: JEANNE WILKS Diagnosis: Radiculopathy, l umbar region 1 CAPSULE TWO TIMES A DAY Last Documented On 4 1:39PM By JEANNE KNOTT ; [facility] Atorvastatin Calcium 20 MG Oral Tablet 05/17/2023 Pr ovider: Diagnosis: Last Documented On 4 10:36AM By Rona DRAPER ; [facility] Medications Administered Includes: Administered Medications from this [...] Active Last Documented On 4 9:07AM ; [facility] Latex Allergy Skin Rashes / Eruption of skin 4 Active Last Documented On 4 9:07AM ; [facility] Encounters Encounter Provider Location Date Check-In Time Check-Out Time Diagnosis CHART UPDATE JEANNE KNOTT 07/22/2023 1:12PM 11:59PM Insurance Includes: Active Insurance Policies Plan Name Member ID Group # Subscriber Relationship Effect ganesh - [facility] [id number] OTIS Ruff Clinical Notes Includes: Clinical Notes from this encounter No Clinical Notes Recorded
--- OUTSIDE RECORDS SUMMARY | 2024-05-26 05:33 | XMS_ITS | Clinical Summary ---
Author Organization [facility] Address [address] [place] [phone] Phone Care Team Providers Care Global President Name Role Phone JEANNE MIN [phone] LUZ MARIA BOYLE MD Primary Care Provider [phone] Reason for Visit and Chief Complaint * PHONE CALL Plan of Treatment No Plan of Treatment Recorded Assessments Includes: Assessments from this encounter No [...] On 4 1:39PM By JEANNE KNOTT ; [facility] Diclofenac Sodium 75 MG Oral Tablet Delayed Release 06/14/2023 Provider: JEANNE WILKS Diagnosis: Radiculopathy, l umbar region 1 po bid prndo not take with other nsaids Last Documented On 4 1:39PM By JEANNE KNOTT ; [facility] Pregabalin 150 MG Oral Capsule 06/14/2023 Provider: JEANNE WILKS Diagnosis: Radiculopathy, l umbar region 1 CAPSULE TWO TIMES A DAY Last Documented On 4 1:39PM By JEANNE KNOTT ; [facility] Atorvastatin Calcium 20 MG Oral Tablet 05/17/2023 Pr ovider: Diagnosis: Last Documented On 4 10:36AM By Rona DRAPER ; [facility] Medications Administered Includes: Administered [...] Active Last Documented On 4 9:07AM ; [facility] Latex Allergy Skin Rashes / Eruption of skin 4 Active Last Documented On 4 9:07AM ; [facility] Encounters Encounter Provider Location Date Check-In Time Check-Out Time Diagnosis * PHONE CALL YADIRA IQBAL MD [facility] 4 9:02AM 11:59PM Insurance Includes: Active Insurance Policies Plan Name Member ID Group # Subscriber Relationship Effect ganesh Dates - [facility] [id number] OTIS Aishwarya SHRESTHA [facility] Clinical Notes Includes: Clinical Notes from this encounter No Clinical Notes Recorded
--- OUTSIDE RECORDS SUMMARY | 2024-05-26 05:33 | XMS_ITS ---
Author Organization Unknown Address [address] [place] [phone] Phone Care Team Providers Care Vice President Regulatory Name Role Phone FABIOCIPRIANO PAWEL Attending Unavailable MARCOS López Primary Unavailable Immunization Immunization Date Status Additional Notes Code Code System Tdap 03/19/2023 Completed 115 CVX Tdap 09/14/2023 Completed 115 CVX Results LUMBAR SPINE - Completed: 08:51 LOINC: EXAM DESCRIPTION: LUMBAR SPINE REASON FOR STUDY: LOW BACK PAIN Duration: couple days TECHNIQUE: 3 radiographic view(s) of the lumbar spine. COMPARISON: June 02, 2022 FINDINGS: ALIGNMENT: Anatomic. VERTEBRAE: Vertebral bodies of normal height. DISCS: Disc height well-maintained. SOFT TISSUES: Within normal limits. IMPRESSION: No acute bony abnormality in the lumbar spine. THIS IS AN ELECTRONICALLY VERIFIED FINAL REPORT 04/29/2023 8:57 AM - Electronically signed by Jagjit Copeland M.D. RB: BRAD Report ID: [id number] Reading Location: [id number] PELVIS - Completed: 04/29/20 08:51 LOINC: EXAM DESCRIPTION: PELVIS REASON FOR STUDY: LOW BACK PAIN Duration: couple days TECHNIQUE: AP radiographic view(s) of the pelvis . COMPARISON: None FINDINGS: BONES/JOINTS: There is no acute fracture, malalignment or osseous abnormality. The joint spaces are normal. SOFT TISSUES: Within normal limits. IMPRESSION: No acute bony abnormality in the pelvis. THIS IS AN ELECTRONICALLY VERIFIED FINAL REPORT 04/29/2023 8:54 AM - Electronically signed by Jagjit Copeland M.D. RB: RB Report ID: [id number] Reading Location: [id number] Social History Type Status Start Date End Date Code Code Syst em Smoking History Current some day smoker [id number] SNOMED CT Sex Male Hospital Discharge Instructions Should you have any questions prior to discharge, please contact a member of your healthcare team. If you have left the hospital and have any questions, please contact your primary care physician. Reason For Referral No Data Found Plan of Treatment No Data Found Encounters Encounter Diagnosis Start Date Code Code Sys tem Sprain of sacroiliac joint, initial encounter 04/29/20 23 SNOMED-CT Personal Care Team Section Performer Name Performer Role Active Date Inactive JOE Strong PCP - Primary care physician 2022-08-14 Imaging Narrative Notes
--- OUTSIDE RECORDS SUMMARY | 2024-05-26 05:33 | XMS_ITS | Clinical Summary ---
Author Organization [facility] Address [address] [place] [phone] Phone Care Team Providers Care [employer] Name Role Phone TOM KNOTT, JEANNE Mondragon [phone] [place] ALBERTS, LUZ MARIA Neff Primary Care Provider [phone] Reason for Visit and Chief Complaint * PHONE CALL Plan of Treatment Pending Tests Order Diagnosis Results Due Ordering P rovider Radiology @ other - MRI MRI Lumbar w/o contrast Spinal stenosis, lumbar region with neurogenic claudication 07/08/23 JEANNE KNOTT Last Documented On 4 9:12AM ; [facility] Therapy - Physical Therapy Physical Therapy Spinal stenosis, lumbar region with neurogenic claudication 07/19/23 JEANNE KNOTT Last Documented On 4 9:11AM ; [facility] Assessments Includes: Assessments from [...] On 4 1:39PM By JEANNE KNOTT ; [facility] Diclofenac Sodium 75 MG Oral Tablet Delayed Release 06/14/2023 Provider: JEANNE WILKS Diagnosis: Radiculopathy, l umbar region 1 po bid prndo not take with other nsaids Last Documented On 4 1:39PM By JEANNE KNOTT ; [facility] Pregabalin 150 MG Oral Capsule 06/14/2023 Provider: JEANNE Nunez Diagnosis: Radiculopathy, l umbar region 1 CAPSULE TWO TIMES A DAY Last Documented On 4 1:39PM By JEANNE FERNANDEZ ; [facility] Atorvastatin Calcium 20 MG Oral Tablet 05/17/2023 Pr ovider: Diagnosis: Last Documented On 4 10:36AM By Rona DRAPER ; [facility] Past Medications on file Ritalin SR 20 MG OR TBCR 08/11/2011 - 09/10/2011 Provider: DEE DEE Huang Diagnosis: ATTN DEFIC NONHY PERACT 2 tabs od Last Documented On 08/11/2011 10:22AM By DEE DEE ESPINAL MD ; [facility] Ritalin SR 10 MG OR TABS 04/20/2011 - 05/20/2011 Provider: DEE DEE Huang Diagnosis: ATTN DEFIC NONHY PERACT 2 tabs Last Documented On 04/20/2011 3:26PM By DEE EDE ESPINAL MD ; [facility] Ritalin SR 20 MG OR TBCR 04/20/2011 - 05/04/2011 Provi sandeep: DEE DEE ESPINAL M.D. Diagnosis: Last Documented On 04/20/2011 3:15PM By DEE DEE ESPINAL MD ; [facility] Medications Administered Includes: Administered Medications from this encounter No Administered Medications Recorded Results Includes: Results discussed during this encounter No Results Recorded For Specified Dates History of Present Illness Includes: History of Present Illness from this encounter No History of Present Illness Recorded Social History Description Last Updated Current smoker 06/14/2023 Last Documented On 4 11:55AM ; [facility] Alcohol 05/17/2023 Last Documented On 4 11:55AM ; [facility] Amount of alcohol per day: 0 05/17/2023 Last Documented On 4 11:55AM ; [facility] Difficulty walking 05/17/2023 Last Documented On 4 11:55AM ; [facility] Smoking packs of cigarettes per day 2 Last Documented On 4 11:55AM ; [facility] Nutritional quality of diet 12/08/2010 Last Documented On 4 11:55AM ; [facility] The racial background was unknown ethnic minority 12/08/2010 Last Documented On 4 11:55AM ; [facility] Occupation STUDENT 12/08/2010 Last Documented On 4 11:55AM ; [facility] Single 12/08/2010 Last Documented On 4 11:55AM ; [facility] Smoking Status Unknown Procedures and Surgical History Surgical History Last Updated Surgical / procedural history Yes 2023 Last Documented On 4 11:55AM ; [facility] History of tonsillectomy 12/08/2010 Last Documented On 4 11:55AM ; [facility] Medical History Includes: Medical History addressed during this encounter Description Last Updated CT/MRI Yes 05/17/2023 Last Documented On 4 11:55AM ; [facility] Deep muscle stimulation 05/17/2023 Last Documented On 4 11:55AM ; [facility] Injection/Nerve blocks 05/17/2023 Last Documented On 4 11:55AM ; [facility] Message/Acupressure 05/17/2023 Last Documented On 4 11:55AM ; [facility] Myelogram Yes 05/17/2023 Last Documented On 4 11:55AM ; [facility] NCV/EMG Yes 05/17/2023 Last Documented On 4 11:55AM ; [facility] Physical therapy 05/17/2023 Last Documented On 4 11:55AM ; [facility] Please list all illnesses/conditions you have been diagnosed with: Copd 05/17/2023 Last Documented On 4 11:55AM ; [facility] Please list all surgeries: Legs had fat removed 201205/17/2023 Last Documented On 4 11:55AM ; [facility] Severe Pain 05/17/2023 Last Documented On 4 11:55AM ; [facility] X-rays Yes 05/17/2023 Last Documented On 4 11:55AM ; [facility] TAKES CONCERTA 12/08/2010 Last Documented On 4 11:55AM ; [facility] Surgery 2009-CLOSED REDUCTION RT WRIST 0 12/08/2010 Last Documented On 4 11:55AM ; [facility] Family History Includes: Family History addressed during [...] Active Last Documented On 4 9:07AM ; [facility] Latex Allergy Skin Rashes / Eruption of skin 4 Active Last Documented On 4 9:07AM ; [facility] Encounters Encounter Provider Location Date Check-In Time Check-Out Time Diagnosis * PHONE CALL JEANNE KNOTT 07/20/2023 11:55AM 11:59PM Insurance Includes: Active Insurance Policies Plan Name Member ID Group # Subscriber Relationship Effect ganesh Dates - [facility] [id number] [facility] Clinical Notes Includes: Clinical Notes from this encounter * Progress note Date Encounter Last Documented by 07/20/2023 * PHONE CALL Last documented on 07/20/2023; 12:26 PM, JEANNE KNOTT; [facility] Chief Complaint Phone Call - Chief Concern: reason for call:pt called with pill count #3 cyclobenzaprine #43 diclofenac #34 pregabalin pt phone # for return call:[phone] date/initials:07/20/23, kms. Past Medical/Surgical History Reported: Surgery [...]
== END 2024-05-25 14:04 | disposition home or self-care (01) ==
PROVIDERS: PCP Physician Assistant; Visit Provider Physician Assistant
DX: M25.562 Pain in left knee (principal)
CPT/HCPCS: 73562

== ENCOUNTER 2024-07-10 21:08 | Emergency (ER) | payer OTHER, SELFPAY ==
--- NOTE | ~2024-07-10 | XR_ITS ---
EXAMINATION: XR chest 2V Exam Date/Time: 07/10/2024 21:41 CDT HISTORY: cough, chest pain Comparison: 01/19/2024. RESULT: Lines, tubes, and devices: None. Lungs and pleura: Clear. Cardiomediastinal silhouette: Stable. Other: No acute osseous or upper abdominal finding. IMPRESSION: No acute cardiopulmonary process. Reviewed, dictated and finalized at location K.
[2024-07-10 21:10] VITALS: BP 136/79; PULSE 100; RESP 20; TEMP 36.8; O2SAT 96
--- OUTSIDE RECORDS SUMMARY | 2024-07-10 21:10 | XMS_ITS | Clinical Summary ---
Author Organization [facility] Address [address] [place] [address] Care Team Providers Care Core Layer Machine Operator Name Role Phone Tavares Sloan Primary Care Provider [phone] Source Comments [facility],non-owned Affiliates and Associated Physician Practices is amultiple site organization consisting of ambulatory clinics and hospital sitesin [place], [place], [place] and [place]. This disclosure is being madepursuant to the Care Everywhere program and may not contain all information available regarding this patient. Last updated 18.[facility] Allergies Active Allergy Reactions Criticality Noted Date Comments Latex Rash Medium 05/17/2023 Penicillins Rash,Anaphylaxis High 05/17/2023 Medications * Be aware that medications may not be up to date on this document. Alwaysverify current medications with the patient. Medication Sig Dispensed Refills Start Date End Date Status diclofenac sodium EC (Voltaren) 75 MG tablet Diclofenac Sodium 75 MG Oral Tablet Delayed Release QTY: 60 tablet Days: 30 Refills: 0 Written: 06/14/23 Patient Instructions: 1 po bid prn do not take with other nsaids 06/14/2023 Active pregabalin (Lyrica) 150 MG capsule 2 times daily 06/14/2023 Active albuterol HFA (Proventil; Ventolin; Proair) 108 (90 Base) MCG/ACT inhaler 04/16/2023 Active HYDROcodone-acetami nophen ([place]) 10-325 MG tablet 08/25/2023 Active albuterol-ipratropi um (Duo-Neb) 0.5-2.5 (3) MG/3ML nebulizer solution 04/16/2023 Active omeprazole (PriLOSEC) 20 MG capsule 06/20/2024 Active methylPREDNISolone (Medrol Dosepak) 4 MG tabletIndications:S /P lumbar microdiscectomy,Lum bar radiculopathy Take by mouth as directed Take as directed by mouth per package instructions. 21 tablet 07/03/2024 Active methocarbamol (Robaxin) 750 MG tabletIndications:S /P lumbar microdiscectomy,Lum bar radiculopathy Take 1 (one) tablet by mouth 3 times daily as needed for Muscle Spasms 42 tablet 07/03/2024 Active methocarbamol (Robaxin) 750 MG tablet Take 1 (one) tablet by mouth every 6 hours 45 tablet 04/14/2024 Discontinue d(Reorder) Active Problems No known active problems Encounters Date Type Department Care Team Description 07/08/2024 4:57 PM PORTABLE POWER TOOL REPAIRER - 07/08/2024 11:59 PM PORTABLE POWER TOOL REPAIRER Hospital Encounter [facility] MRI [address] [place] [address] Pardeep Lambert MD Discharge Disposition: Home or Self Care 07/03/2024 1:45 PM PORTABLE POWER TOOL REPAIRER Office Visit [facility] - Neurosurgery [address] [place] [address], [place] [address] Pardeep Lambert MD S/P lumbar microdiscectomy (Primary Dx); Lumbar radiculopathy 07/03/2024 Travel 04/24/2024 10:15 AM PORTABLE POWER TOOL REPAIRER Office Visit [facility] - Neurosurgery [address] [place] [phone] Pardeep Lambert MD S/P lumbar microdiscectomy (Primary Dx) 04/24/2024 Travel 04/14/2024 Orders Only [facility] [address] [place] [address] Pat Gardner APRN-KARI from Last 3 Months Social History Tobacco Use Types Packs/Day Years Used Date Smoking Tobacco: Every Day Cigarettes Smokeless Tobacco: Never Tobacco Cessation:Ready to Q uit: Not Asked; Counseling Given: Not Answered Alcohol Use Standard Drinks/Week Comments Not Currently 0 (1 standard drink = 0.6 oz pur e alcohol) AUDIT-C Answer Date Recorded Q1: How often do you have a drink containing alcohol? Never 04/06/2024 Q2: How many drinks containi ng alcohol do you have on a typical day when you are drinking? Patient does not drink Q3: How often do you have si x or more drinks on one occasion? Never 04/06/2024 Sex and Gender Information Value Date Recorded Sex Assigned at Not on file Gender Identity Not on file Sexual Orientation Not on file Last Filed Vital Signs Vital Sign Reading Time Taken Comments Blood Pressure 127/77 07/03/2024 1:20 PM PORTABLE POWER TOOL REPAIRER Pulse 92 07/03/2024 1:20 PM PORTABLE POWER TOOL REPAIRER Temperature 36.9 C (98.5 F) 04/24/2024 10:21 AM PORTABLE POWER TOOL REPAIRER Respiratory Rate 18 04/06/2024 12:48 PM PORTABLE POWER TOOL REPAIRER Oxygen Saturation 96% 07/03/2024 1:20 PM PORTABLE POWER TOOL REPAIRER Inhaled Oxygen Concentration - - Weight 142.9 kg (315 lb) 07/03/2024 1:20 PM PORTABLE POWER TOOL REPAIRER Height 172.7 cm (5' 8 ) 07/03/2024 1:20 PM PORTABLE POWER TOOL REPAIRER Body Mass Index 47.9 07/03/2024 1:20 PM PORTABLE POWER TOOL REPAIRER Plan of Treatment Health Maintenance Due Date Last Done Comments HIV SCREENING 2009 HEPATITIS C SCREENING 10/21/2012 DTAP/TDAP/TD VACCINES (1 - Tdap) 2013 HEPATITIS B VACCINE (1 of 3 - 19+ 3-dose series) 2013 PNEUMOCOCCAL VACCINE (1 of 2 - PCV) 2013 COVID-19 VACCINE (1 - 2023-2 5 season) 2024 INFLUENZA VACCINE (#1) 2024 DEPRESSION SCREENING 05/03/2024 ZOSTER VACCINE (1 of 2) 2044 HIB VACCINE Aged Out No longer eligi ble based on patient's age to complete this topic HPV VACCINE Aged Out No longer eligi ble based on patient's age to complete this topic MENINGOCOCCAL (Group B) VACCINE Aged Out No longer eligible based on patient's age to complete this topic MENINGOCOCCAL VACCINE Aged Out No kiki jose c eligible based on patient's age to complete this topic Procedures Procedure Name Priority Date/Time Associated Diagnosis Comments MRI LUMBAR SPINE WWO CONTRAST Routine 07/08/2024 5:17 PM PORTABLE POWER TOOL REPAIRER S/P lumbar microdiscectomy Lumbar radiculopathy from Last 3 Months Results * MRI Lumbar Spine Wwo Contrast (07/08/2024 5:17 PM PORTABLE POWER TOOL REPAIRER) Anatomical Region Laterality Modality Spine Magnetic Resonan ce 07/09/2024 2:36 PM CDT Impressions 07/09/2024 2:45 PM CDT IMPRESSION: 1. Postoperative changes of likely left L4-L5 hemilaminotomy and left L5 hemilaminectomy as well as L5-S1 microdiscectomy. A 2.5 x 3.3 x 1.5 cm irregular rim-enhancing areas in the laminectomy defect likely represent postsurgical changes, although superimposed infection cannot be completely excluded. Please correlate clinically. 2. Multilevel degenerative disc and joint disease in the lumbar spinous detailed above, most pronounced at L5-S1 where there is moderate disc bulge and a large broad-based central disc protrusion asymmetric to the left causing moderate right and severe left lateral recess stenosis with possible impingement of the extravasation bilateral S1 nerve roots, more pronounced on the left side. Please correlate with patient's symptoms and neurologic examination. > Interpreting Provider: Vandana Kang MD on 07/09/2024 2:45 PM Narrative 07/09/2024 2:45 PM CDT PROCEDURE: MRI LUMBAR SPINE WWO CONTRAST, DATE/TIME OF EXAM: 07/08/2024 5:21 PM, LOCATION [facility] INDICATION: Z98.890: S/P lumbar microdiscectomy M54.16: Lumbar radiculopathy ADDITIONAL CLINICAL INFORMATION: Ordering Provider Reason For Exam: Technologist Note: Additional: EXAMINATION: Magnetic resonance imaging (MRI) of the lumbar spine without and with contrast TECHNIQUE: MRI of the lumbar spine was performed prior to and following the uneventful administration of 10 mL Gadavist intravenous contrast according to standard protocol. FINDINGS: No prior study is available for comparison at the time of this dictation. Postoperative changes of likely left L4-L5 hemilaminotomy and left L5 hemilaminectomy as well as L5-S1 microdiscectomy. A 2.5 x 3.3 x 1.5 cm irregular rim-enhancing areas in the laminectomy defect likely represent postsurgical changes, although superimposed infection cannot be completely excluded. Please correlate clinically. The alignment is normal. Vertebral bodies are normal in height without evidence of acute fracture. Other than mild degenerative endplate changes at multiple levels, the bone marrow signal is normal. The conus medullaris terminates at the level of L1 and the distal spinal cord signal intensity is normal. 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 Degenerative disc and joint disease is noted at multiple levels as detailed below. L1-L2: There is no disc bulge. There is no central canal stenosis. There is no facet osteoarthritis. There is no neural foraminal stenosis. L2-L3: There is mild disc bulge. There is mild central canal stenosis. There is no facet osteoarthritis. There is no neural foraminal stenosis. L3-L4: There is mild disc bulge. There is mild central canal stenosis. There is no facet osteoarthritis. There is no neural foraminal stenosis. L4-L5: There is mild disc bulge. There is mild central canal stenosis. There is mild bilateral facet osteoarthritis. There is no neural foraminal stenosis. L5-S1: There is moderate disc bulge and a large broad-based central disc protrusion asymmetric to the left causing moderate right and severe left lateral recess stenosis with possible impingement of the extravasation bilateral S1 nerve roots, more pronounced on the left side. There is moderate central canal stenosis. There is mild bilateral facet osteoarthritis. There is no neural foraminal stenosis. Procedure Note Vandana Kang MD - 07/09/2024 PROCEDURE: MRI LUMBAR SPINE WWO CONTRAST, DATE/TIME OF EXAM: 07/08/2024 5:21 PM, LOCATION [facility] INDICATION: Z98.890: S/P lumbar microdiscectomy M54.16: Lumbar radiculopathy ADDITIONAL CLINICAL INFORMATION: Ordering Provider Reason For Exam: Technologist Note: Additional: EXAMINATION: Magnetic resonance imaging (MRI) of the lumbar spinewithout and with contrast TECHNIQUE: MRI of the lumbar spine was performed prior to and followingthe uneventful administration of 10 mL Gadavist intravenous contrastaccording to standard protocol. FINDINGS: No prior study is available for comparison at the time of this dictation. Postoperative changes of likely left L4-L5 hemilaminotomy and left L5 hemilaminectomy as well as L5-S1 microdiscectomy. A 2.5 x 3.3 x 1.5 cm irregular rim-enhancing areas in the laminectomy defect likely represent postsurgical changes, although superimposed infection cannot becompletely excluded. Please correlate clinically. The alignment is normal. Vertebral bodies are normal in height without evidence of acute fracture. Other than mild degenerative endplatechanges at multiple levels, the bone marrow signal is normal. The conusmedullaris terminates at the level of L1 and the distal spinal cord signalintensity is normal. There is congenital shortening of the pedicles, contributingto spinal canal stenosis. Degenerative disc and joint disease is noted at multiple levels as detailed below. L1-L2: There is no disc bulge. There is no central canal stenosis. Thereis no facet osteoarthritis. There is no neural foraminal stenosis. L2-L3: There is mild disc bulge. There is mild central canal stenosis. There is no facet osteoarthritis. There is no neural foraminal stenosis. L3-L4: There is mild disc bulge. There is mild central canal stenosis. There is no facet osteoarthritis. There is no neural foraminal stenosis. L4-L5: There is mild disc bulge. There is mild central canal stenosis. There is mild bilateral facet osteoarthritis. There is no neuralforaminal stenosis. L5-S1: There is moderate disc bulge and a large broad-based central disc protrusion asymmetric to the left causing moderate right and severe left lateral recess stenosis with possible impingement of the extravasation bilateral S1 nerve roots, more pronounced on the left side. There is moderate central canal stenosis. There is mild bilateral facet osteoarthritis. There is no neural foraminal stenosis. IMPRESSION: 1. Postoperative changes of likely left L4-L5 hemilaminotomy and left L5 hemilaminectomy as well as L5-S1 microdiscectomy. A 2.5 x 3.3 x 1.5 cm irregular rim-enhancing areas in the laminectomy defect likely represent postsurgical changes, although superimposed infection cannot becompletely excluded. Please correlate clinically. 2. Multilevel degenerative disc and joint disease in the lumbar spinous detailed above, most pronounced at L5-S1 where there is moderate discbulge and a large broad-based central disc protrusion asymmetric to the left causing moderate right and severe left lateral recess stenosis with possible impingement of the extravasation bilateral S1 nerve roots, more pronounced on the left side. Please correlate with patient's symptomsand neurologic examination. > Interpreting Provider: Vandana Kang MD on 07/09/2024 2:45 PM Pardeep Lambert MD MR ORDERABLES from Last 3 Months Care Teams Core Layer Machine Operator Relationship Specialty Start Date End Date Tavares Sloan PA [address] [place] [address] PCP - General Physician Metal Model Maker 06/06/24
--- OUTSIDE RECORDS SUMMARY | 2024-07-10 21:10 | XMS_ITS | Patient Health Summary ---
Author Organization [facility] Address [address] [place] [address] Care Team Providers Care Leather Sprayer Name Role Phone Tavares Sloan Primary Care Provider [phone] Note from [facility],non-owned Affiliates and Associated Physician Practices is amultiple site organization consisting of ambulatory clinics and hospital sitesin [place], [place], [place] and [place]. This disclosure is being madepursuant to the Care Everywhere program and may not contain all information available regarding this patient. Last updated 18.[facility] Allergies * Latex(Rash) -Medium Criticality * Penicillins(Rash,Anaphylaxis) -High Criticality Medications * Be aware that medications may not be up to date on this document. Alwaysverify current medications with the patient. * diclofenac sodium EC (Voltaren) 75 MG tablet(Started 06/14/2023) Diclofenac Sodium 75 MG Oral Tablet Delayed Release QTY: 60 tablet Days: 30 Refills: 0 Written: 06/14/23 Patient Instructions: 1 po bid prn do not take with other nsaids * pregabalin (Lyrica) 150 MG capsule(Started 06/14/2023) 2 times daily * albuterol HFA (Proventil; Ventolin; Proair) 108 (90 Base) MCG/ACT inhaler (Started 04/16/2023) * HYDROcodone-acetaminophen (Marion) 10-325 MG tablet(Started 08/25/2023) * albuterol-ipratropium (Duo-Neb) 0.5-2.5 (3) MG/3ML nebulizer solution(Started 04/16/2023) * omeprazole (PriLOSEC) 20 MG capsule(Started 06/20/2024) * methylPREDNISolone (Medrol Dosepak) 4 MG tablet(Started 07/03/2024) Take by mouth as directed Take as directed by mouth per package instructions. * methocarbamol (Robaxin) 750 MG tablet(Started 07/03/2024) Take 1 (one) tablet by mouth 3 times daily as needed for Muscle Spasms Ended Medications* methocarbamol (Robaxin) 750 MG tablet(Started 04/14/2024) (Discontinued) Take 1 (one) tablet by mouth every 6 hours Active Problems No known active problems Social History Tobacco Use Types Packs/Day Years [...] Comments Blood Pressure 127/77 07/03/2024 1:20 PM MEAT [employer]ODU[employer] DEMONSTRATOR Pulse 92 07/03/2024 1:20 PM ME[employer]ODU[employer] DEMONSTRATOR Temperature 36.9 C (98.5 F) 04/24/2024 10:21 AM ME[employer]ODU[employer] DEMON[employer]ATOR Respiratory Rate 18 04/06/2024 12:48 PM ME[employer]ODU[employer] DEMONSTRATOR Oxygen Saturation 96% 07/03/2024 1:20 PM ME[employer] DEMONSTRATOR Inhaled Oxygen Concentration - - Weight 142.9 kg (315 lb) 07/03/2024 1:20 PM ME[employer]ODU[employer] DEMONSTRATOR Height 172.7 cm (5' 8 ) 07/03/2024 1:20 PM ME[employer]ODU[employer] DEMONSTRATOR Body Mass Index 47.9 07/03/2024 1:20 PM ME[employer]ODU[employer] DEMONSTRATOR Procedures * MRI LUMBAR SPINE WWO CONTRAST(Performed 07/08/2024) Performed for S/P lumbar microdiscectomy, Lumbar radiculopathy * CARDIAC RHYTHM STRIP ORDER(Performed 04/10/2024) * FL DUNCAN SURGERY(Performed 04/06/2024) Performed for Pain * ENDOTRACHEAL TUBE NOTE(Performed 04/06/2024) * NC LAMINOTOMY,LUMBAR DISK,1 INTRSP(Performed 04/06/2024) Performed for Diagnosis unknown Results * MRI Lumbar Spine Wwo Contrast (07/08/2024 5:17 PM ME[employer]ODU[employer] DEMONSTRATOR) Anatomical Region Laterality Modality Spine Magnetic Resonan [...] symptoms and neurologic examination. > Interpreting Provider: Vnadana Kang MD on 07/09/2024 2:45 PM Narrative 07/09/2024 2:45 PM CDT PROCEDURE: MRI LUMBAR SPINE WWO CONTRAST, DATE/TIME OF EXAM: 07/08/2024 5:21 PM, LOCATION [facility] INDICATION: Z98.890: S/P lumbar microdiscectomy M54.16: Lumbar [...] DATE/TIME OF EXAM: 07/08/2024 5:21 PM, LOCATION [facility] INDICATION: Z98.890: S/P lumbar microdiscectomy M54.16: Lumbar [...] 2:45 PM Pardeep Lambert MD MR ORDERABLES * CARDIAC RHYTHM STRIP ORDER (04/10/2024 4:43 PM ME[employer] DEMONSTRATOR) Narrative 04/10/2024 4:43 PM MEAT [employer]ODU[employer] DEMONSTRATOR Ordered by an unspecified provider. Scanned Document CARDIAC SERVICES ORD ERABLES * FL Duncan Surgery (04/06/2024 11:00 AM MEAT [employer]ODUCTS DEMONSTRATOR) Narrative [facility] - 04/07/2024 2:19 PM MEAT PRODUCTS DEMONSTRATOR For details of this study, please see the providers note. Pardeep Lambert MD FLUOROSCOPY ORDKarley RABLES [facility] [address] [place] [address] * ETT LINE PERFORMABLE (04/06/2024 8:19 AM ME[employer]ODUCTS DEMONSTRATOR) Narrative Diego Hood III, APRN-CRNA - 04/06/2024 8:19 AM MEAT PRODUCTS DEMONSTRATOR Diego Hood III, APRN-CRNA 04/06/2024 8:20 AM Endotracheal Tube Placement: Patient Location: OR. Intubation Event Date/Time: 04/06/2024 7:55 AM Procedure: intubation ([id number]) Procedure Section: Sedation: under general anesthesia. Indications for Airway Management: anesthesia Induction: modified rapid sequence Patient Position: sniffing Mask Ventilation: not attempted. Blade Type: Video Blade Size: 4 Laryngoscopy View: grade 1 (full cords) Intubation Adjuncts: stylet Tube: endotracheal tube Placement: oral Tube type: cuff - inflated Tube Size (MM): 8 Depth of Insertion (CM): 22 Measured From: gums Cuff Inflated With: air Number of Attempts: 1. Placement Verified By: chest auscultation, bilateral breath sounds, direct visualization and CO2 monitor CXR Findings: ETT in proper place. Tube secured with: adhesive tape. Dentition unchanged? Yes Difficult Airway? No. Procedure Start Time: 04/06/2024 7:55 AM. Staff Section Anesthesia Provider: Diego Hood III, APRN-RESEARCH PHYSIOLOGIST Provider #1: Portillo Jenkins, Performed the procedure. Bert Osuna MD GENERAL ANESTHESIA ORDERABLES Care Teams Leather Sprayer Relationship Specialty Start Date End Date Tavares Sloan PA [address] [place] [id number] PCP - General Physician Timber Cruiser 06/06/24
--- OUTSIDE RECORDS SUMMARY | 2024-07-10 21:10 | XMS_ITS | Clinical Summary ---
Author Organization [facility] Address [address] [place] [phone] Phone Care Team Providers Care Shirt Folder Name Role Phone TOM KNOTT, JEANNE Mondragon [phone] [place] ALBERTS, LUZ MARIA Neff Primary Care Provider [phone] Reason for Visit and Chief Complaint CHART UPDATE Plan of Treatment Pending Tests Order Diagnosis Results Due Ordering P rovisandeep Radiology @ other - MRI MRI Lumbar w/o contrast Spinal stenosis, lumbar region with neurogenic claudication 07/08/23 JEANEN KNOTT Last Documented On 4 9:12AM ; [facility] Therapy - Physical Therapy Physical Therapy Spinal stenosis, lumbar region with neurogenic claudication 07/19/23 JEANNE KNOTT Last Documented On 4 9:11AM ; [facility] Assessments Includes: Assessments from this encounter No [...] On 4 1:39PM By JEANNE KNOTT ; [facility] Diclofenac Sodium 75 MG Oral Tablet Delayed Release 06/14/2023 Provider: JEANNE WILKS Diagnosis: Radiculopathy, l umbar region 1 po bid prndo not take with other nsaids Last Documented On 4 1:39PM By JEANNE KNOTT ; [facility] Pregabalin 150 MG Oral Capsule 06/14/2023 Provider: JEANNE WILKS Diagnosis: Radiculopathy, l umbar region 1 CAPSULE TWO TIMES A DAY Last Documented On 4 1:39PM By JEANNE KNOTT ; [facility] Atorvastatin Calcium 20 MG Oral Tablet 05/17/2023 Pr ovider: Diagnosis: Last Documented On 4 10:36AM By Rona DRAPER ; [facility] Medications Administered Includes: Administered Medications from this [...] Active Last Documented On 4 9:07AM ; [facility] Latex Allergy Skin Rashes / Eruption of skin 4 Active Last Documented On 4 9:07AM ; [facility] Encounters Encounter Provider Location Date Check-In Time Check-Out Time Diagnosis CHART UPDATE JEANNE KNOTT 07/22/2023 1:12PM 11:59PM Insurance Includes: Active Insurance Policies Plan Name Member ID Group # Subscriber Relationship Effect ganesh - [facility] [id number] OTIS Ruff Clinical Notes Includes: Clinical Notes from this encounter No Clinical Notes Recorded
--- OUTSIDE RECORDS SUMMARY | 2024-07-10 21:10 | XMS_ITS | Clinical Summary ---
Author Organization [facility] Address [address] [place] [phone] Phone Care Team Providers Care Director Of Finance Name Role Phone TOM LEWIS-MARGARET, JEANNE Deluca Unavailable [phone] [place] ALBERTS, LUZ MARIA Neff Primary Care Provider [phone] Reason for Visit and Chief Complaint The [...] HAS BEEN ORDERED BY SOMEONE ELSE IN [place] ~ ~ Plan of Treatment Pending Tests Order Diagnosis Results Due Ordering Sampson luna Radiology @ other - MRI MRI Lumbar w/o contrast Spinal stenosis, lumbar region with neurogenic claudication 07/08/23 JEANNE SANTOS ANP-BC Last Documented On 4 9:12AM ; [facility] Therapy - Physical Therapy Physical Therapy Spinal stenosis, lumbar region with neurogenic claudication 07/19/23 JEANNE SANTOS ANP-BC Last Documented On 4 9:11AM ; [facility] Assessments Includes: Assessments from this encounter Findings - Lumbar spondylosis with radiculopathy [M47.26 - Other spondylosis with radiculopathy, lumbar region] - Last Documented On 07/19/2023 10:02AM ; [facility] - Lumbar stenosis with neurogenic claudication [M48.062 - Spinal stenosis, lumbar region with neurogenic claudication] - Last Documented On 07/19/2023 10:02AM ; [facility] - Lumbar radiculopathy [M54.16 - Radiculopathy, lumbar region] - Last Documented On 07/19/2023 10:02AM ; [facility] Medical Equipment - Implanted Devices Includes: Current Devices No Medical Equipment Recorded Medications Includes: Medications discussed during this encounter and other current Medications Discontinued / Stopped on this date JEANNE KNOTT on 05/17/2023 Gabapentin 600 MG Oral Tablet Provider: JEANNE KNOTT Diagnosis: Spinal stenosis, lumbar region with neurogenic claudication Last Documented On 07/19/2023 9:08AM By Rona DRAPER ; [facility] Current Medications (continue as prescribed) Cyclobenzaprine HCl 10 MG Oral Tablet 06/14/2023 Provider: JEANNE KNOTT Diagnosis: Spinal stenosis, lumbar region with neurogenic claudication 1/2 t o1 po bid prn Last Documented On 4 1:39PM By JEANNE KNOTT ; [facility] Diclofenac Sodium 75 MG Oral Tablet Delayed Release 06/14/2023 Provider: JEANNE WILKS Diagnosis: Radiculopathy, l umbar region 1 po bid prndo not take with other nsaids Last Documented On 4 1:39PM By JEANNE KNOTT ; [facility] Pregabalin 150 MG Oral Capsule 06/14/2023 Provider: JEANNE WILKS Diagnosis: Radiculopathy, l umbar region 1 CAPSULE TWO TIMES A DAY Last Documented On 4 1:39PM By JEANNE KNOTT ; [facility] Atorvastatin Calcium 20 MG Oral Tablet 05/17/2023 Pr ovider: Diagnosis: Last Documented On 4 10:36AM By Rona DRAPER ; [facility] Past Medications on file Ritalin SR 20 MG OR TBCR 08/11/2011 - 09/10/2011 Provider: DEE DEE Huang 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 Diagnosis: Last Documented On 04/20/2011 3:15PM By DEE DEE ESPINAL MD ; [facility] Medications Administered Includes: Administered [...] 97 Last Documented: On 07/19/2023 9:05AM ; [facility] Results Includes: Results discussed during this encounter [...] 07/19/2023 Last Documented On 4 10:02AM ; [facility] Current smoker 06/14/2023 Last Documented On 4 8:57AM ; [facility] Alcohol 05/17/2023 Last Documented On 4 8:57AM ; [facility] Amount of alcohol per day: 0 05/17/2023 Last Documented On 4 8:57AM ; [facility] Difficulty walking 05/17/2023 Last Documented On 4 8:57AM ; [facility] Smoking packs of cigarettes per day 2 Last Documented On 4 8:57AM ; [facility] Nutritional quality of diet 12/08/2010 Last Documented On 4 8:57AM ; [facility] The racial background was unknown ethnic minority 12/08/2010 Last Documented On 4 8:57AM ; [facility] Occupation STUDENT 12/08/2010 Last Documented On 4 8:57AM ; [facility] Single 12/08/2010 Last Documented On 4 8:57AM ; [facility] Smoking Status Unknown Procedures and Surgical History Includes: Procedures from this encounter Procedures Code Diagnosis Performing Provider Service Location Service Date CLINIC VISIT T1015 Spinal stenosis, lumbar region with neurogenic claudication, Other spondylosis with radiculopathy, lumbar region, Radiculopathy, lumbar region JEANNE SANTOS ANP-BC [facility] 07/19/2023 Last Documented On 4 3:05PM ; [facility] use of tobacco assessment performed 1000F Last Documented On 4 8:57AM ; [facility] review of medications documented 1160F Last Documented On 4 8:57AM ; [facility] assessment of suicide risk performed Last Documented On 4 8:57AM ; [facility] screening for adult depression: impressi on and score nine Last Documented On 4 8:57AM ; [facility] standardized depression screening: posit ganesh for symptoms Last Documented On 4 8:57AM ; [facility] Clinical summary provided to patient ~ Patient understands and agrees with treatment plan. Questions answered Last Documented On 4 8:57AM ; [facility] SOAPP-R: total score 18 Last Documented On 4 8:57AM ; [facility] Surgical History Last Updated No Pacemaker 07/19/2023 Last Documented On 4 10:02AM ; [facility] Surgical / procedural history Yes 2023 Last Documented On 4 8:57AM ; [facility] History of tonsillectomy 12/08/2010 Last Documented On 4 8:57AM ; [facility] Medical History Includes: Medical History addressed during this encounter Description Last Updated No Pain Pump 07/19/2023 Last Documented On 4 10:02AM ; [facility] No Spinal cord stimulator 07/19/2023 Last Documented On 4 10:02AM ; [facility] No Ultrasound No 07/19/2023 Last Documented On 4 10:02AM ; [facility] CT/MRI Yes 05/17/2023 Last Documented On 4 8:57AM ; [facility] Deep muscle stimulation 05/17/2023 Last Documented On 4 8:57AM ; [facility] Injection/Nerve blocks 05/17/2023 Last Documented On 4 8:57AM ; [facility] Message/Acupressure 05/17/2023 Last Documented On 4 8:57AM ; [facility] Myelogram Yes 05/17/2023 Last Documented On 4 8:57AM ; [facility] NCV/EMG Yes 05/17/2023 Last Documented On 4 8:57AM ; [facility] Physical therapy 05/17/2023 Last Documented On 4 8:57AM ; [facility] Please list all illnesses/conditions you have been diagnosed with: Copd 05/17/2023 Last Documented On 4 8:57AM ; [facility] Please list all surgeries: Legs had fat removed 2013 05/17/2023 Last Documented On 4 8:57AM ; [facility] Severe Pain 05/17/2023 Last Documented On 4 8:57AM ; [facility] X-rays Yes 05/17/2023 Last Documented On 4 8:57AM ; [facility] TAKES CONCERTA 12/08/2010 Last Documented On 4 8:57AM ; [facility] Surgery 2009-CLOSED REDUCTION RT WRIST 0 12/08/2010 Last Documented On 4 8:57AM ; [facility] Family History Includes: Family History addressed during this encounter Description Last Updated Maternal history of Arthritis 07/19/2023 Last Documented On 4 10:02AM ; [facility] Maternal history of family history of is chemic heart disease 07/19/2023 Last Documented On 4 10:02AM ; [facility] Maternal history of reported family hist ory of seizures 07/19/2023 Last Documented On 4 10:02AM ; [facility] Review of Systems Includes: Review of Systems [...] Active Last Documented On 4 9:07AM ; [facility] Latex Allergy Skin Rashes / Eruption of skin 4 Active Last Documented On 4 9:07AM ; [facility] Encounters Encounter Provider Location Date Check-In Time Check-Out Time Diagnosis PAIN MANAGEMENT FOLLOW UP JEANNE SANTOS ANP-BC [facility] 07/19/19 24 8:55AM 9:42AM Lumbar Radiculopathy,Sp inal Stenosis Lumbar with Neurogenic Claudication,Spo ndylosis with Radiculopathy Lumbar Region Insurance Includes: Active Insurance Policies Plan Name Member ID Group # Subscriber Relationship Effect ganesh Dates 1 - [facility] [id number] [facility]IS [facility] Clinical Notes Includes: Clinical Notes from this encounter * Progress note Date Encounter Last Documented by 07/19/2023 PAIN MANAGEMENT FOLLOW UP Last d ocumented on 07/19/2023; 10:02 AM, JEANNE LEWIS-MARGARET; [facility] Chief Complaint The Chief [...] HAS BEEN ORDERED BY SOMEONE ELSE IN [place] . History of Present Illness - Allergy [...] 50% of this time spent in direct [id number] counseling and coordination of care. Results of [...] but may be subject to typographical or process checker errors. Verify all diagnoses, medications, dosages, and [...]
--- OUTSIDE RECORDS SUMMARY | 2024-07-10 21:10 | XMS_ITS | Clinical Summary ---
Author Organization [facility] Address [address] [place] [phone] Phone Care Team Providers Care Preparatory Technician Name Role Phone TOM KNOTT, JEANNE Mondragon [phone] [place] ALBERTS, LUZ MARIA Neff Primary Care Provider [phone] Reason for Visit and Chief Complaint * PHONE CALL Plan of Treatment Pending Tests Order Diagnosis Results Due Ordering P rovider Radiology @ other - MRI MRI Lumbar w/o contrast Spinal stenosis, lumbar region with neurogenic claudication 07/08/23 JEANNE KNOTT Last Documented On 4 9:12AM ; [facility] Therapy - Physical Therapy Physical Therapy Spinal stenosis, lumbar region with neurogenic claudication 07/19/23 JEANNE KNOTT Last Documented On 4 9:11AM ; [facility] Assessments Includes: Assessments from this [...] On 4 1:39PM By JEANNE KNOTT ; [facility] Diclofenac Sodium 75 MG Oral Tablet Delayed Release 06/14/2023 Provider: JEANNE WILKS Diagnosis: Radiculopathy, l umbar region 1 po bid prndo not take with other nsaids Last Documented On 4 1:39PM By JEANNE KNOTT ; [facility] Pregabalin 150 MG Oral Capsule 06/14/2023 Provider: JEANNE Nunez Diagnosis: Radiculopathy, l umbar region 1 CAPSULE TWO TIMES A DAY Last Documented On 4 1:39PM By JEANNE FERNANDEZ ; [facility] Atorvastatin Calcium 20 MG Oral Tablet 05/17/2023 Pr ovider: Diagnosis: Last Documented On 4 10:36AM By Rona DRAPER ; [facility] Past Medications on file Ritalin SR 20 MG OR TBCR 08/11/2011 - 09/10/2011 Provider: DEE DEE Huang Diagnosis: ATTN DEFIC NONHY PERACT 2 tabs od Last Documented On 08/11/2011 10:22AM By DEE DEE ESPINAL MD ; [facility] Ritalin SR 10 MG OR TABS 04/20/2011 - 05/20/2011 Provider: DEE DEE Huang Diagnosis: ATTN DEFIC NONHY PERACT 2 tabs Last Documented On 04/20/2011 3:26PM By DEE DEE ESPINAL MD ; [facility] Ritalin SR 20 MG OR TBCR 04/20/2011 - 05/04/2011 Provi sandeep: DEE DEE ESPINAL M.D. Diagnosis: Last Documented On 04/20/2011 3:15PM By DEE DEE ESPINLA MD ; [facility] Medications Administered Includes: Administered Medications from this encounter No Administered Medications Recorded Results Includes: Results discussed during this encounter No Results Recorded For Specified Dates History of Present Illness Includes: History of Present Illness from this encounter No History of Present Illness Recorded Social History Description Last Updated Current smoker 06/14/2023 Last Documented On 4 11:55AM ; [facility] Alcohol 05/17/2023 Last Documented On 4 11:55AM ; [facility] Amount of alcohol per day: 0 05/17/2023 Last Documented On 4 11:55AM ; [facility] Difficulty walking 05/17/2023 Last Documented On 4 11:55AM ; [facility] Smoking packs of cigarettes per day 2 Last Documented On 4 11:55AM ; [facility] Nutritional quality of diet 12/08/2010 Last Documented On 4 11:55AM ; [facility] The racial background was unknown ethnic minority 12/08/2010 Last Documented On 4 11:55AM ; [facility] Occupation STUDENT 12/08/2010 Last Documented On 4 11:55AM ; [facility] Single 12/08/2010 Last Documented On 4 11:55AM ; [facility] Smoking Status Unknown Procedures and Surgical History Surgical History Last Updated Surgical / procedural history Yes 2023 Last Documented On 4 11:55AM ; [facility] History of tonsillectomy 12/08/2010 Last Documented On 4 11:55AM ; [facility] Medical History Includes: Medical History addressed during this encounter Description Last Updated CT/MRI Yes 05/17/2023 Last Documented On 4 11:55AM ; [facility] Deep muscle stimulation 05/17/2023 Last Documented On 4 11:55AM ; [facility] Injection/Nerve blocks 05/17/2023 Last Documented On 4 11:55AM ; [facility] Message/Acupressure 05/17/2023 Last Documented On 4 11:55AM ; [facility] Myelogram Yes 05/17/2023 Last Documented On 4 11:55AM ; [facility] NCV/EMG Yes 05/17/2023 Last Documented On 4 11:55AM ; [facility] Physical therapy 05/17/2023 Last Documented On 4 11:55AM ; [facility] Please list all illnesses/conditions you have been diagnosed with: Copd 05/17/2023 Last Documented On 4 11:55AM ; [facility] Please list all surgeries: Legs had fat removed 201205/17/2023 Last Documented On 4 11:55AM ; [facility] Severe Pain 05/17/2023 Last Documented On 4 11:55AM ; [facility] X-rays Yes 05/17/2023 Last Documented On 4 11:55AM ; [facility] TAKES CONCERTA 12/08/2010 Last Documented On 4 11:55AM ; [facility] Surgery 2009-CLOSED REDUCTION RT WRIST 0 12/08/2010 Last Documented On 4 11:55AM ; [facility] Family History Includes: Family History [...] Active Last Documented On 4 9:07AM ; [facility] Latex Allergy Skin Rashes / Eruption of skin 4 Active Last Documented On 4 9:07AM ; [facility] Encounters Encounter Provider Location Date Check-In Time Check-Out Time Diagnosis * PHONE CALL JEANNE KNOTT 07/20/2023 11:55AM 11:59PM Insurance Includes: Active Insurance Policies Plan Name Member ID Group # Subscriber Relationship Effect ganesh Dates - [facility] [id number] [facility] Clinical Notes Includes: Clinical Notes from this encounter * Progress note Date Encounter Last Documented by 07/20/2023 * PHONE CALL Last documented on 07/20/2023; 12:26 PM, JEANNE KNOTT; [facility] Chief Complaint Phone Call - Chief Concern: reason for call:pt called with pill count #3 cyclobenzaprine #43 diclofenac #34 pregabalin pt phone # for return call:[phone] date/initials:07/20/23, kms. Past Medical/Surgical History Reported: Surgery [...]
--- OUTSIDE RECORDS SUMMARY | 2024-07-10 21:10 | XMS_ITS | Clinical Summary ---
Author Organization [facility] Address [address] [place] [phone] Phone Care Team Providers Care Flour Mixer Helper Name Role Phone TOM KNOTT, JEANNE Mondragon [phone] [place] ALBERTS, LUZ MARIA Neff Primary Care Provider [phone] Reason for Visit and Chief Complaint * PHONE CALL Plan of Treatment Pending Tests Order Diagnosis Results Due Ordering P rovider Radiology @ other - MRI MRI Lumbar w/o contrast Spinal stenosis, lumbar region with neurogenic claudication 07/08/23 JEANNE KNOTT Last Documented On 4 9:12AM ; [facility] Therapy - Physical Therapy Physical Therapy Spinal stenosis, lumbar region with neurogenic claudication 07/19/23 JEANNE KNOTT Last Documented On 4 9:11AM ; [facility] Assessments Includes: Assessments from this encounter No [...] On 4 1:39PM By JEANNE KNOTT ; [facility] Diclofenac Sodium 75 MG Oral Tablet Delayed Release 06/14/2023 Provider: JEANNE WILKS Diagnosis: Radiculopathy, l umbar region 1 po bid prndo not take with other nsaids Last Documented On 4 1:39PM By JEANNE KNOTT ; [facility] Pregabalin 150 MG Oral Capsule 06/14/2023 Provider: JEANNE WILKS Diagnosis: Radiculopathy, l umbar region 1 CAPSULE TWO TIMES A DAY Last Documented On 4 1:39PM By JEANNE KNOTT ; [facility] Atorvastatin Calcium 20 MG Oral Tablet 05/17/2023 Pr ovider: Diagnosis: Last Documented On 4 10:36AM By Rona DRAPER ; [facility] Medications Administered Includes: Administered Medications from this [...] Active Last Documented On 4 9:07AM ; [facility] Latex Allergy Skin Rashes / Eruption of skin 4 Active Last Documented On 4 9:07AM ; [facility] Encounters Encounter Provider Location Date Check-In Time Check-Out Time Diagnosis * PHONE CALL JEANNE KNOTT 09/20/2023 10:30AM 11:59PM Insurance Includes: Active Insurance Policies Plan Name Member ID Group # Subscriber Relationship Effect ganesh Dates - [facility] [id number] OTIS Ruff Clinical Notes Includes: Clinical Notes from this encounter No Clinical Notes Recorded
--- OUTSIDE RECORDS SUMMARY | 2024-07-10 21:10 | XMS_ITS ---
Care Plan - [facility] Created on: July 10, 2024 OTIS SHRESTHA : 1995 Sex: Male Author Organization [facility] Address [address] [place] [phone] Phone Care Team Providers Care Geophysical Manager Name Role Phone TOM KNOTT, JEANNE Deluca Unavailable [phone] [place] ALBERTS, LUZ MARIA Neff Primary Care Provider [phone]
--- OUTSIDE RECORDS SUMMARY | 2024-07-10 21:10 | XMS_ITS | Clinical Summary ---
Author Organization [facility] Address [address] [place] [id number] Care Team Providers Care Seasonal Recruiter Name Role Phone Tavares Sloan Primary Care Provider [phone] Allergies Active Allergy Reactions Criticality Noted Date Comments Penicillin V Swelling 09/08/2020 Medications cyclobenzaprine (FLEXERIL) 10 MG tablet Take 1 tablet (10 mg total) by mouth 3 (three) times daily as needed. 06/14/2023 Active diclofenac EC (VOLTAREN) 75 MG tablet Take 1 tablet (75 mg total) by mouth 2 (two) times daily. 06/14/2023 Active guaiFENesin ER (MUCINEX) 600 MG 12 hr tablet Take 2 tablets (1,200 mg total) by mouth 2 (two) times daily. 28 tablet 07/28/2023 Active Active Problems No known active problems Family History Medical History Relation Comments Hypertension Father Diabetes Mother Relation Status Comments Father Mother Social History Tobacco Use Types Packs/Day Years Used Date Smoking Tobacco: Every Day Cigarettes Smokeless Tobacco: Never Tobacco Cessation:Ready to Q uit: Not Asked; Counseling Given: Not Answered Alcohol Use Standard Drinks/Week Comments Yes 0 (1 standard drink = 0.6 oz pur e alcohol) AUDIT-C Answer Date Recorded Frequency of Alcohol Consumption Never 11/07/2018 Average Number of Drinks Not on file 019 Frequency of Binge Drinking Not on file 12/2018 Sex and Gender Information Value Date Recorded Sex Assigned at Not on file 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 Gender Identity Not on file Sexual Orientation Not on file Last Filed Vital Signs Vital Sign Reading Time Taken Comments Blood Pressure 145/93 07/28/2023 8:07 PM CDT Pulse 86 07/28/2023 8:07 PM CDT Temperature 36.9 C (98.4 F) 07/28/2023 7:04 PM CDT Respiratory Rate 10 07/28/2023 8:07 PM CDT Oxygen Saturation 98% 07/28/2023 8:07 PM CDT Inhaled Oxygen Concentration - - Weight 147.3 kg (324 lb 12.8 oz) 07/28/2023 7:04 PM CDT Height 172.7 cm (5' 8 ) 07/28/2023 7:04 PM CDT Body Mass Index 49.39 07/28/2023 7:04 PM CDT Plan of Treatment Health Maintenance Due Date Last Done Comments Annual Physical 1997 Pneumococcal Vaccine: Pediatrics (0 to 5 Years) and At-Risk Patients (6 to 64 Years) (1 of 2 - PCV) 2000 Hepatitis C 2012 Hepatitis B Vaccines (1 of 3 - 19+ 3-dose series) 2013 COVID-19 Vaccine (2023-2 5 season) 2024 Influenza Adult (#1) 2024 DTaP, Tdap and Td Vaccines ( 3 - Td or Tdap) 09/13/2033 09/14/2023, 03/19/2023 HPV Vaccines Aged Out No longer eligi ble based on patient's age to complete this topic Meningococcal B Vaccine Aged Out No l onger eligible based on patient's age to complete this topic Meningococcal Vaccine Aged Out No kiki jose c eligible based on patient's age to complete this topic RSV Immunizations Under 20 Months Aged Out No longer eligible b ased on patient's age to complete this topic Insurance Care Teams Seasonal Recruiter Relationship Specialty Start Date End Date Tavares Sloan PA [address] [place] [phone] PCP - General PHYSICIAN INTEGRATION MANAGER 03/21/23
--- OUTSIDE RECORDS SUMMARY | 2024-07-10 21:10 | XMS_ITS | Referral Summary ---
Author Organization [facility] Address [address] [place] [place] [address] Care Team Providers Care Field Technician Name Role Phone Tavares Sloan Primary Care Provider [phone] Source Comments [facility],non-owned Affiliates and Associated Physician Practices is amultiple site organization consisting of ambulatory clinics and hospital sitesin [place], [place], [place] and [place]. This disclosure is being madepursuant to the Care Everywhere program and may not contain all information available regarding this patient. Last updated 18.[facility] Encounters Date Type Department Care Team Description 07/08/2024 4:57 PM [facility] - 07/08/2024 11:59 PM [facility] Hospital Encounter [facility] MRI [address] [place] [address] Pardeep Lambert MD Discharge Disposition: Home or Self Care 07/03/2024 Travel 07/03/2024 1:45 PM [facility] Office Visit [facility] - Neurosurgery [address] [place] [phone] Pardeep Lambert MD S/P lumbar microdiscectomy (Primary Dx); Lumbar radiculopathy 04/24/2024 Travel 04/24/2024 10:15 AM [facility] Office Visit [facility] - Neurosurgery [address] [place] [address] Pardeep Lambert MD S/P lumbar microdiscectomy (Primary Dx) 04/14/2024 Orders Only [facility] PHYS NEUROSURGERY [address] [place] [address] Pat Gardner, [employer] from Last 3 Months Allergies Active Allergy Reactions Criticality Noted Date [...] Base) MCG/ACT inhaler 04/16/2023 Active HYDROcodone-acetami nophen ([place]) 10-325 MG tablet 08/25/2023 Active albuterol-ipratropi um [...] d(Reorder) Active Problems No known active problems Social [...] Comments Blood Pressure 127/77 07/03/2024 1:20 PM [facility] Pulse 92 07/03/2024 1:20 PM [facility] Temperature 36.9 C (98.5 F) 04/24/2024 10:21 AM [facility] Respiratory Rate 18 04/06/2024 12:48 PM [facility] Oxygen Saturation 96% 07/03/2024 1:20 PM [facility] Inhaled Oxygen Concentration - - Weight 142.9 kg (315 lb) 07/03/2024 1:20 PM [facility] Height 172.7 cm (5' 8 ) 07/03/2024 1:20 PM [facility] Body Mass Index 47.9 07/03/2024 1:20 PM [facility] Plan of Treatment Not on file Procedures Procedure Name Priority Date/Time Associated Diagnosis Comments MRI LUMBAR SPINE WWO CONTRAST Routine 07/08/2024 5:17 PM [facility] S/P lumbar microdiscectomy Lumbar radiculopathy from Last 3 Months Results * MRI Lumbar Spine Wwo Contrast (07/08/2024 5:17 PM [facility]) Anatomical Region Laterality Modality Spine Magnetic Resonan [...] DATE/TIME OF EXAM: 07/08/2024 5:21 PM, LOCATION [facility] INDICATION: Z98.890: S/P lumbar microdiscectomy M54.16: [...] DATE/TIME OF EXAM: 07/08/2024 5:21 PM, LOCATION [facility] INDICATION: Z98.890: S/P lumbar microdiscectomy M54.16: [...] ORDERABLES from Last 3 Months Care Teams Field Technician Relationship Specialty Start Date End Date Tavares Sloan PA [address] [place] [phone] PCP - General Physician Claims Service Adjustor 06/06/24
--- OUTSIDE RECORDS SUMMARY | 2024-07-10 21:10 | XMS_ITS | Encounter Summary ---
Author Organization [facility] Address [facility] [facility] [place] [address] Care Team Providers Care Restorer Paper And Prints Name Role Phone Tavares Sloan Primary Care Provider [phone] Reason for Visit * Radiology Services (Routine) - Closed Specialty Diagnoses / Procedures Referred By Contac t Referred To Contact Magnetic Resonance Imaging Diagnoses S/P lumbar microdiscectomy Lumbar radiculopathy Procedures MRI Lumbar Spine Wwo Contrast Pardeep Lambert MD [address] [facility] [address] [place] [address] Referral ID Status Reason Start Date Expiration Date Visits Re quested Visits Authorized [id number] Closed 07/04/2024 07/04/2025 1 1 Encounter Details Date Type Department Care Team (Latest Contact Info) Description 07/08/2024 4:57 PM TELECOMMUNICATIONS CONSULTANT - 07/08/2024 11:59 PM [facility] Hospital Encounter [facility] MRI [address] [place] [phone] Pardeep Lambert MD [facility] [facility] [address] [place] [phone] Discharge Disposition: Home or Self Care Social History Tobacco Use Types Packs/Day Years Used Date Smoking Tobacco: Every Day Cigarettes Smokeless Tobacco: Never Alcohol Use Standard Drinks/Week Comments Not Currently [...] on file Sexual Orientation Not on file documented as of this encounter Medications at Time of Discharge Medication Sig Dispensed Refills Start Date End Date albuterol HFA (Proventil; Ventolin; Proair) 108 (90 Base) MCG/ACT inhaler 04/16/2023 albuterol-ipratropium (Duo-Neb) 0.5-2.5 (3) MG/3ML nebulizer solution 04/16/2023 diclofenac sodium EC (Voltaren) 75 MG tablet Diclofenac Sodium 75 MG Oral Tablet Delayed Release QTY: 60 tablet Days: 30 Refills: 0 Written: 06/14/23 Patient Instructions: 1 po bid prn do not take with other nsaids 06/14/2023 HYDROcodone-acetaminophe n ([place]) 10-325 MG tablet 08/25/2023 methocarbamol (Robaxin) 750 MG tabletIndications:S/P lumbar microdiscectomy,Lumbar radiculopathy Take 1 (one) tablet by mouth 3 times daily as needed for Muscle Spasms 42 tablet 07/03/2024 methylPREDNISolone (Medrol Dosepak) 4 MG tabletIndications:S/P lumbar microdiscectomy,Lumbar radiculopathy Take by mouth as directed Take as directed by mouth per package instructions. 21 tablet 07/03/2024 omeprazole (PriLOSEC) 20 MG capsule 06/20/2024 pregabalin (Lyrica) 150 MG capsule 2 times daily 06/14/2023 documented as of this encounter Plan of Treatment Not on file documented as of this encounter Procedures Procedure Name Priority Date/Time Associated Diagnosis Comments MRI LUMBAR SPINE WWO CONTRAST Routine 07/08/2024 5:17 PM TELECOMMUNICATIONS CONSULTANT S/P lumbar microdiscectomy Lumbar radiculopathy documented in this encounter Results * MRI Lumbar Spine Wwo Contrast (07/08/2024 5:17 PM TELECOMMUNICATIONS CONSULTANT) Anatomical Region Laterality Modality Spine Magnetic Resonan [...] DATE/TIME OF EXAM: 07/08/2024 5:21 PM, LOCATION [facility] INDICATION: Z98.890: S/P lumbar microdiscectomy M54.16: [...] DATE/TIME OF EXAM: 07/08/2024 5:21 PM, LOCATION [facility] INDICATION: Z98.890: S/P lumbar microdiscectomy M54.16: [...] 2:45 PM Pardeep Lambert MD MR ORDERABLES documented in this encounter Visit Diagnoses Diagnosis S/P lumbar microdiscectomy Other postprocedural status Lumbar radiculopathy Thoracic or lumbosacral neuritis or radiculitis, unspecified documented in this encounter Administered Medications Inactive Administered Medications - up to 3 most recent administrations Medication Order MAR Action Action Date Dose Rate Site gadobutrol (Gadavist) injection Intravenous, CONTRAST ONCE, Starting on 07/08/24 at 1718, Until 07/09/24 at 0118 $ Given - Contrast 07/08/2024 5:19 PM TELECOMMUNICATIONS CONSULTANT 10 mL documented in this encounter Care Teams Restorer Paper And Prints Relationship Specialty Start Date End Date Tavares Sloan PA [address] [place] [address] PCP - General Physician Road Conductor 06/06/24 documented as of this encounter
--- OUTSIDE RECORDS SUMMARY | 2024-07-10 21:11 | XMS_ITS | Clinical Summary ---
Author Organization [facility] Address [address] [place] [phone] Phone Care Team Providers Care Engineering Teacher Name Role Phone JEANNE MIN [phone] LUZ MARIA BOYLE MD Primary Care Provider [phone] Reason for Visit and Chief Complaint * [...] On 4 1:39PM By JEANNE KNOTT ; [facility] Diclofenac Sodium 75 MG Oral Tablet Delayed Release 06/14/2023 Provider: JEANNE WILKS Diagnosis: Radiculopathy, l umbar region 1 po bid prndo not take with other nsaids Last Documented On 4 1:39PM By JEANNE KNOTT ; [facility] Pregabalin 150 MG Oral Capsule 06/14/2023 Provider: JEANNE WILKS Diagnosis: Radiculopathy, l umbar region 1 CAPSULE TWO TIMES A DAY Last Documented On 4 1:39PM By JEANNE KNOTT ; [facility] Atorvastatin Calcium 20 MG Oral Tablet 05/17/2023 Pr ovider: Diagnosis: Last Documented On 4 10:36AM By Rona DRAPER ; [facility] Medications Administered Includes: Administered Medications from [...] Active Last Documented On 4 9:07AM ; [facility] Latex Allergy Skin Rashes / Eruption of skin 4 Active Last Documented On 4 9:07AM ; [facility] Encounters Encounter Provider Location Date Check-In Time Check-Out Time Diagnosis * PHONE CALL YADIRA IQBAL MD [facility] 4 9:02AM 11:59PM Insurance Includes: Active Insurance Policies Plan Name Member ID Group # Subscriber Relationship Effect ganesh Dates - [facility] [id number] OTIS Aishwarya SHRESTHA [facility] Clinical Notes Includes: Clinical Notes from this encounter No Clinical Notes Recorded
--- OUTSIDE RECORDS SUMMARY | 2024-07-10 21:11 | XMS_ITS ---
Author Organization Unknown Address [address] [place] [phone] Phone Care Team Providers Care Crop Farmers Name Role Phone FABIOCIPRIANO PAWEL Attending Unavailable [...] Jagjit Copeland M.D. RB: BRAD Report ID: [id number] Reading Location: [id number] PELVIS - Completed: 04/29/20 08:51 LOINC: EXAM [...] Jagjit Copeland M.D. RB: RB Report ID: [id number] Reading Location: [id number] Social History Type Status Start Date End Date Code Code Syst em Smoking History Current some day smoker [id number] SNOMED CT Sex Male Hospital Discharge Instructions [...]
--- OUTSIDE RECORDS SUMMARY | 2024-07-10 21:11 | XMS_ITS ---
Author Organization [facility] Address [address] [place] [phone] Phone Care Team Providers Care Onsite Case Manager Name Role Phone TOM KNOTT, JEANNE L Unavailable [phone] [place] ALBERTS, LUZ MARIA Neff Primary Care Provider [phone] Plan of Treatment Findings Encounter Date Ordered follow-up visit next month MED CHECK wit h DEE DEE ESPINAL M.D. 08/11/2011 Last Documented On 2 11:28AM ; [facility] Ordered follow-up visit in 2 months ADHD CK-UP w [facility] DEE DEE ESPINAL M.D. 07/16/2011 Last Documented On 2 4:01PM ; [facility] Ordered follow-up visit next month ADHD CK-UP wi DEE DEE ESPINAL M.D. 06/04/2011 Last Documented On 2 2:33PM ; [facility] Ordered follow-up visit NOTE : above rx are errors correct dose Ritalin sr 20 mg 3 60 . 2 bid MED CHECK with DEE DEE ESPINAL M.D. 04/20/2011 Last Documented On 1 11:01AM ; [facility] Ordered follow-up visit next month NOTE: apparently metadate cd not covered by medical card. will change it to methylin er 20 mg od ADHD CK-UP with DEE DEE ESPINAL M.D. 02/27/2011 Last Documented On 1 3:43PM ; [facility] Ordered follow-up visit next month ADHD CK-UP wi DEE DEE ESPINAL M.D. 02/09/2011 Last Documented On 1 10:58AM ; [facility] clearance to go back to [...] 12/29/2010 Last Documented On 1 8:00PM ; [facility] Ordered follow-up visit next week, patient has adhd on concerta, will deaL WITH HIS CHRONIC PROBLEM NEXT visit NEW PATIENT VISIT with DEE DEE ESPINAL M.D. 12/08/2010 Last Documented On 1 2:35PM ; [facility] Pending Tests Order Diagnosis Results Due Ordering Sampson luna Radiology @ other - MRI MRI Lumbar w/o contrast Spinal stenosis, lumbar region with neurogenic claudication 07/08/23 JEANNE SANTOS [facility]- Last Documented On 4 9:12AM ; [facility] Therapy - Physical Therapy Physical Therapy Spinal stenosis, lumbar region with neurogenic claudication 07/19/23 JEANNE SANTOS ANP- Last Documented On 4 9:11AM ; [facility] Instructions to patient Maintain a healthy diet Last Documented On 1 4:06PM ; [facility] No Special Instructions or D evices Last Documented On 1 4:06PM ; [facility] Education and Decision Aids were provided during visit for: Anticipatory guidance: limit computer and video time Last Documented On 1 4:07PM ; [facility] Discussed safety practices Last Documented On 1 4:06PM ; [facility] Discussed use of seat belts Last Documented On 1 4:07PM ; [facility] Discussed 'child-proofing' t he house advised to remove guns from home or keep unloaded and locked away Last Documented On 1 4:07PM ; [facility] Discussed bicycle safety Last Documented On 1 4:07PM ; [facility] Discussed sports safety Last Documented On 1 4:07PM ; [facility] Discussed nutritional needs Last Documented On 1 4:06PM ; [facility] Discussed education and care er Last Documented On 1 4:06PM ; [facility] Discussed activities Last Documented On 1 4:06PM ; [facility] Discussed activities supervi se activities with peers Last Documented On 1 4:07PM ; [facility] Discussed concerns Last Documented On 1 4:06PM ; [facility] Discussed concerns about exe rcise : promote physical activity Last Documented On 1 4:07PM ; [facility] Discussed concerns about dis cipline reinforce limits, family rules, homework and chores Last Documented On 1 4:07PM ; [facility] Discussed concerns about tel evision : limit time spent watching Last Documented On 1 4:07PM ; [facility] Discussed concerns about sex ual activity Last Documented On 1 4:07PM ; [facility] Discussed concerns about uns afe sexual practices Last Documented On 1 4:07PM ; [facility] Discussed concerns about tob acco use employee counselor to avoid~ Last Documented On 1 4:07PM ; [facility] Discussed concerns about alc ohol use employee counselor to avoid Last Documented On 1 4:07PM ; [facility] Discussed concerns about ill icit drug use employee counselor to avoid Last Documented On 1 4:07PM ; [facility] Assessments Includes: Assessments for all patient encounters Findings Encounter Date Lumbar radiculopathy PAIN MANAGEMENT FOL LOW UP with JEANNE SANTOS ANP-BC 07/19/2023 Last Documented On 4 10:02AM ; [facility] Lumbar spondylosis with radiculopathy PA IN MANAGEMENT FOLLOW UP with JEANNEKIKA DRIVERS ANP-BC 07/19/2023 Last Documented On 4 10:02AM ; [facility] Lumbar stenosis with neuroge milo claudication PAIN MANAGEMENT FOLLOW UP with JEANNE L TOM ANP-BC 07/19/2023 Last Documented On 4 10:02AM ; [facility] Lumbar radiculopathy TELEHEALTH with JEANNE Sandrine ANDREA MORALES ANP-BC 06/14/2023 Last Documented On 4 1:37PM ; [facility] Lumbar spondylosis with radiculopathy TE LEHEALTH with JEANNE L TOM ANP-BC 06/14/2023 Last Documented On 4 1:37PM ; [facility] Lumbar stenosis with neuroge milo claudication TELEHEALTH with JEANNE L TOM ANP-BC 06/14/2023 Last Documented On 4 1:37PM ; [facility] Lumbar radiculopathy PAIN MANAGEMENT NEW CONSULT with JEANNE L TOM ANP-BC 05/17/2023 Last Documented On 4 12:41PM ; [facility] Lumbar spondylosis with radiculopathy PA IN MANAGEMENT NEW CONSULT with JEANNE L TOM ANP-BC 05/17/2023 Last Documented On 4 12:41PM ; [facility] Lumbar stenosis with neuroge milo claudication PAIN MANAGEMENT NEW CONSULT with JEANNE L TOM ANP-BC 05/17/2023 Last Documented On 4 12:41PM ; [facility] ADHD, predominantly inattentive type MED CHECK w ith DEE DEE ESPINAL M.D. 08/11/2011 Last Documented On 2 11:28AM ; [facility] Attention-deficit hyperactivity disorder MED CHECK with DEE DEE ESPINAL M.D. 08/11/2011 Last Documented On 2 11:28AM ; [facility] ADHD, predominantly inattentive type ADHD CK-UP with DEE DEE ESPINAL M.D. 07/16/2011 Last Documented On 2 4:01PM ; [facility] Attention-deficit hyperactivity disorder ADHD CK-UP with DEE DEE ESPINAL M.D. 07/16/2011 Last Documented On 2 4:01PM ; [facility] ADHD, predominantly inattentive type ADHD CK-UP with DEE DEE ESPINAL M.D. 06/04/2011 Last Documented On 2 2:33PM ; [facility] Attention-deficit hyperactivity disorder ADHD CK-UP with DEE DEE Neff.Meredith 06/04/2011 Last Documented On 2 2:33PM ; [facility] ADHD, predominantly inattentive type MED CHECK w ith DEE DEE Neff.Meredith 04/20/2011 Last Documented On 1 11:01AM ; [facility] Attention-deficit hyperactivity disorder MED CHECK with DEE DEE Neff.Meredith 04/20/2011 Last Documented On 1 11:01AM ; [facility] ADHD, predominantly inattentive type ADHD CK-UP with DEE DEE Neff.Meredith 02/27/2011 Last Documented On 1 3:43PM ; [facility] Attention-deficit hyperactivity disorder ADHD CK-UP with DEE DEEMODESTO Neff.Meredith 02/27/2011 Last Documented On 1 3:43PM ; [facility] ADHD, predominantly inattentive type ADHD CK-UP with DEE DEE Neff.Meredith 02/09/2011 Last Documented On 1 10:58AM ; [facility] Attention-deficit hyperactivity disorder ADHD CK-UP with DEE DEE Neff.Meredith 02/09/2011 Last Documented On 1 10:58AM ; [facility] Ankle sprain left, resolved RECHECK with DEE DEE Neff.Meredith 12/29/2010 Last Documented On 1 8:00PM ; [facility] Attention-deficit hyperactivity disorder RECHECK with DEE DEE Neff.Meredith 12/29/2010 Last Documented On 1 8:00PM ; [facility] Obesity RECHECK with DEE DEE Neff.Meredith 12/29/2010 Last Documented On 1 8:00PM ; [facility] Sprain left foot HOSPITAL FOLLOW UP EXAM with LEDA ESPINAL M.D. 12/22/2010 Last Documented On 1 4:41PM ; [facility] Patient is approved for part icipation in School, Physical Education, and Sports for 1 year NEW PATIENT VISIT with DEE DEE ESPINAL M.D. 12/08/2010 Last Documented On 1 2:35PM ; [facility] Normal routine history and p hysical adolescent (12 - 18) NEW PATIENT VISIT with DEE DEE ESPINAL M.D. 12/08/2010 Last Documented On 1 2:35PM ; [facility] SCHOOL/SPORT PHYSICAL NEW PATIENT VISIT with LELAND ESPINAL M.D. 12/08/2010 Last Documented On 1 2:35PM ; [facility] Instructions Includes: Instructions for all patient encounters Instructions to patient Maintain a healthy diet Last Documented On 1 4:06PM ; [facility] No Special Instructions or D evices Last Documented On 1 4:06PM ; [facility] Education and Decision Aids were provided during visit for: Anticipatory guidance: limit computer and video time Last Documented On 1 4:07PM ; [facility] Discussed safety practices Last Documented On 1 4:06PM ; [facility] Discussed use of seat belts Last Documented On 1 4:07PM ; [facility] Discussed 'child-proofing' t he house advised to remove guns from home or keep unloaded and locked away Last Documented On 1 4:07PM ; [facility] Discussed bicycle safety Last Documented On 1 4:07PM ; [facility] Discussed sports safety Last Documented On 1 4:07PM ; [facility] Discussed nutritional needs Last Documented On 1 4:06PM ; [facility] Discussed education and care er Last Documented On 1 4:06PM ; [facility] Discussed activities Last Documented On 1 4:06PM ; [facility] Discussed activities supervi se activities with peers Last Documented On 1 4:07PM ; [facility] Discussed concerns Last Documented On 1 4:06PM ; [facility] Discussed concerns about exe rcise : promote physical activity Last Documented On 1 4:07PM ; [facility] Discussed concerns about dis cipline reinforce limits, family rules, homework and chores Last Documented On 1 4:07PM ; [facility] Discussed concerns about tel evision : limit time spent watching Last Documented On 1 4:07PM ; [facility] Discussed concerns about sex ual activity Last Documented On 1 4:07PM ; [facility] Discussed concerns about uns afe sexual practices Last Documented On 1 4:07PM ; [facility] Discussed concerns about tob acco use employee counselor to avoid~ Last Documented On 1 4:07PM ; [facility] Discussed concerns about alc ohol use employee counselor to avoid Last Documented On 1 4:07PM ; [facility] Discussed concerns about ill icit drug use employee counselor to avoid Last Documented On 1 4:07PM ; [facility] Medical Equipment - Implanted Devices Includes: Current and historical Devices No Medical Equipment Recorded Medications Includes: Current and historical Medications Current Medications (continue as prescribed) Cyclobenzaprine HCl 10 MG Oral Tablet 06/14/2023 Provider: JEANNE KNOTT Diagnosis: Spinal stenosis, lumbar region with neurogenic claudication 1/2 t o1 po bid prn Last Documented On 4 1:39PM By JEANNE KNOTT ; [facility] Diclofenac Sodium 75 MG Oral Tablet Delayed Release 06/14/2023 Provider: JEANNE WILKS Diagnosis: Radiculopathy, l umbar region 1 po bid prndo not take with other nsaids Last Documented On 4 1:39PM By JEANNE KNOTT ; [facility] Pregabalin 150 MG Oral Capsule 06/14/2023 Provider: JEANNE WILKS Diagnosis: Radiculopathy, l umbar region 1 CAPSULE TWO TIMES A DAY Last Documented On 4 1:39PM By JEANNE KNOTT ; [facility] Atorvastatin Calcium 20 MG Oral Tablet 05/17/2023 Pr ovider: Diagnosis: Last Documented On 4 10:36AM By Rona DRAPER ; [facility] Past Medications on file Gabapentin 600 MG Oral Tablet 05/17/2023 - 07/19/2023 Provider: JEANNE KNOTT Diagnosis: Spinal stenosis, lumbar region with neurogenic claudication One tablet three times a day Last Documented On 07/19/2023 9:08AM By Rona DRAPER ; [facility] Cyclobenzaprine HCl 5 MG Oral Tablet 05/17/2023 - 06/03 Provider: Diagnosis: Last Documented On 4 1:36PM [facility] Meloxicam 7.5 MG Oral Tablet 05/17/2023 - 06/14/2023 P ninader: Diagnosis: Last Documented On 4 1:37PM By [facility] ; [facility] Ritalin SR 20 MG OR TBCR 08/11/2011 - 09/10/2011 Provider: DEE DEE Huang Diagnosis: ATTN DEFIC NONHY PERACT 2 tabs od Last Documented On 08/11/2011 10:22AM By DEE DEE ESPINAL MD ; [facility] Ritalin SR 20 MG OR TBCR 07/16/2011 - 08/11/2011 Provider: DEE DEE Huang Diagnosis: ATTN DEFIC NONHY PERACT 2 tabs od Last Documented On 08/11/2011 10:22AM By DEE DEE ESPINAL MD ; [facility] Ritalin SR 20 MG OR TBCR 06/04/2011 - 07/16/2011 Provider: DEE DEE Huang Diagnosis: ATTN DEFIC NONHY PERACT 2 tabs od Last Documented On 07/16/2011 4:00PM By DEE DEE ESPINAL MD ; [facility] Ritalin SR 20 MG OR TBCR 04/20/2011 - 06/04/2011 Provider: DEE DEE Huang Diagnosis: ATTN DEFIC NONHY PERACT 2 tabs od Last Documented On 06/04/2011 1:44PM By DEE DEE ESPINAL MD ; [facility] Ritalin SR 10 MG OR TABS 04/20/2011 - 05/20/2011 Provider: DEE DEE Huang Diagnosis: ATTN DEFIC NONHY PERACT 2 tabs Last Documented On 04/20/2011 3:26PM By DEE DEE ESPINAL MD ; [facility] Ritalin SR 20 MG OR TBCR 04/20/2011 - 05/04/2011 Provi sandeep: DEE DEE ESPINAL M.D. Diagnosis: Last Documented On 04/20/2011 3:15PM By DEE DEE ESPINAL MD ; [facility] Ritalin SR 20 MG OR TBCR 04/03/2011 - 04/20/2011 Provi sandeep: Diagnosis: Last Documented On 04/20/2011 3:15PM By DEE DEE ESPINAL MD ; [facility] Metadate CD 30 MG OR CPCR 02/27/2011 - 04/20/2011 Provider: DEE DEE Huang Diagnosis: ATTN DEFICIT W HYPERACT Last Documented On 04/20/2011 3:09PM By MELBA TYSON MA ; [facility] Concerta 54 MG OR TBCR 02/09/2011 - 04/03/2011 Provide r: Diagnosis: Last Documented On 04/03/2011 2:25PM By MELBA TYSON MA ; [facility] Medications Administered Includes: Administered Medications in patient's chart No Administered Medications Recorded Vital Signs Includes: Vital Signs from 07/11/2023 through 07/10/2024 Vital Name 07/19/2023 09:02A Blood Pressure Sitting R 120/86 Pulse Rate-Sitting (bpm) 113 Temp-Temporal 96.7 Height (in) 68 Weight (lb) 339 Body Mass Index 51.5 Body Surface Area 2.6 Pain Level 8 Oxygen Saturation (%) 97 Last Documented: On 07/19/2023 9:05AM ; [facility] Results Includes: Results from 07/11/2023 through 07/10/2024 No Results Recorded For Specified Dates History of Present Illness History of Present Illness not supported for this document type No History of Present Illness Recorded Social History Description Last Updated Not using drugs 07/19/2023 Last Documented On 4 10:02AM ; [facility] Current smoker 06/14/2023 Last Documented On 4 1:37PM ; [facility] Alcohol 05/17/2023 Last Documented On 4 12:41PM ; [facility] Amount of alcohol per day: 0 05/17/2023 Last Documented On 4 12:41PM ; [facility] Difficulty walking 05/17/2023 Last Documented On 4 12:41PM ; [facility] Smoking packs of cigarettes per day 2 Last Documented On 4 12:41PM ; [facility] Nutritional quality of diet 12/08/2010 Last Documented On 1 2:35PM ; [facility] Nutritious and satisfying diet 1 Last Documented On 1 2:35PM ; [facility] The racial background was unknown ethnic minority 12/08/2010 Last Documented On 1 2:35PM ; [facility] No tobacco use 12/08/2010 Last Documented On 1 2:35PM ; [facility] Not using alcohol 12/08/2010 Last Documented On 1 2:35PM ; [facility] Occupation STUDENT 12/08/2010 Last Documented On 1 3:10PM ; [facility] Single 12/08/2010 Last Documented On 1 3:10PM ; [facility] Smoking Status Unknown Procedures and Surgical History Includes: Procedures from 07/11/2023 through 07/10/2024 Procedures Code Diagnosis Performing Provider Service Location Service Date CLINIC VISIT [id number] Spinal stenosis, lumbar region with neurogenic claudication, Other spondylosis with radiculopathy, lumbar region, Radiculopathy, lumbar region JEANNE SANTOS [facility] 07/19/2023 Last Documented On 4 3:05PM ; [facility] Surgical History Last Updated No Pacemaker 07/19/2023 Last Documented On 4 10:02AM ; [facility] Surgical / procedural history Yes 2023 Last Documented On 4 12:41PM ; [facility] History of tonsillectomy 12/08/2010 Last Documented On 1 3:10PM ; [facility] Medical History Includes: Medical History in patient's chart Description Last Updated No Pain Pump 07/19/2023 Last Documented On 4 10:02AM ; [facility] No Spinal cord stimulator 07/19/2023 Last Documented On 4 10:02AM ; [facility] No Ultrasound No 07/19/2023 Last Documented On 4 10:02AM ; [facility] CT/MRI Yes 05/17/2023 Last Documented On 4 12:41PM ; [facility] Deep muscle stimulation 05/17/2023 Last Documented On 4 12:41PM ; [facility] Injection/Nerve blocks 05/17/2023 Last Documented On 4 12:41PM ; [facility] Message/Acupressure 05/17/2023 Last Documented On 4 12:41PM ; [facility] Myelogram Yes 05/17/2023 Last Documented On 4 12:41PM ; [facility] NCV/EMG Yes 05/17/2023 Last Documented On 4 12:41PM ; [facility] Physical therapy 05/17/2023 Last Documented On 4 12:41PM ; [facility] Please list all illnesses/conditions you have been diagnosed with: Copd 05/17/2023 Last Documented On 4 12:41PM ; [facility] Please list all surgeries: Legs had fat removed 201205/17/2023 Last Documented On 4 12:41PM ; [facility] Severe Pain 05/17/2023 Last Documented On 4 12:41PM ; [facility] X-rays Yes 05/17/2023 Last Documented On 4 12:41PM ; [facility] No other medical history reported Signs of Insulin Resistance 12/08/2010 Last Documented On 1 2:35PM ; [facility] A PPD was negative 12/08/2010 Last Documented On 1 2:35PM ; [facility] Blood pressure was not high 12/08/2010 Last Documented On 1 2:35PM ; [facility] No cardiac problems 12/08/2010 Last Documented On 1 2:35PM ; [facility] No exposure to tuberculosis 12/08/2010 Last Documented On 1 2:35PM ; [facility] No hearing problems 12/08/2010 Last Documented On 1 2:35PM ; [facility] No heart murmur 12/08/2010 Last Documented On 1 2:35PM ; [facility] No history of asthma 12/08/2010 Last Documented On 1 2:35PM ; [facility] No history of concussion 12/08/2010 Last Documented On 1 2:35PM ; [facility] No history of delayed milestones 011 Last Documented On 1 2:35PM ; [facility] No history of diabetes mellitus 12/09/19 11 Last Documented On 1 2:35PM ; [facility] No history of hematologic disorder 12/08 Last Documented On 1 2:35PM ; [facility] No history of sickle cell abnormality Last Documented On 1 2:35PM ; [facility] No loss of function of one of paired org ans 12/08/2010 Last Documented On 1 2:35PM ; [facility] No orthopedic problems 12/08/2010 Last Documented On 1 2:35PM ; [facility] No previous hospitalizations 12/08/2010 Last Documented On 1 2:35PM ; [facility] No recent examination by an ophthalmolog ist 12/08/2010 Last Documented On 1 2:35PM ; [facility] No recent severe illness or injury 12/08 Last Documented On 1 2:35PM ; [facility] No Surgery 12/08/2010 Last Documented On 1 2:35PM ; [facility] No trauma to the head 12/08/2010 Last Documented On 1 2:35PM ; [facility] Not born with congenital abnormalities 0 12/08/2010 Last Documented On 1 2:35PM ; [facility] Not carrying hemophilia A 12/08/2010 Last Documented On 1 2:35PM ; [facility] TAKES CONCERTA 12/08/2010 Last Documented On 1 3:10PM ; [facility] Surgery 2009-CLOSED REDUCTION RT WRIST 0 12/08/2010 Last Documented On 1 3:10PM ; [facility] Family History Includes: Family History in patient's chart Description Last Updated Maternal history of Arthritis 07/19/2023 Last Documented On 4 10:02AM ; [facility] Maternal history of family history of is chemic heart disease 07/19/2023 Last Documented On 4 10:02AM ; [facility] Maternal history of reported family hist ory of seizures 07/19/2023 Last Documented On 4 10:02AM ; [facility] No family history of diabetes mellitus 0 12/08/2010 Last Documented On 1 2:35PM ; [facility] No sudden early deaths 12/08/2010 Last Documented On 1 2:35PM ; [facility] Review of Systems Review of Systems not [...] Active Last Documented On 4 9:07AM ; [facility] Latex Allergy Skin Rashes / Eruption of skin 4 Active Last Documented On 4 9:07AM ; [facility] Encounters Includes: Encounters from 07/11/2023 through 07/10/2024 Encounter Provider Location Date Check-In Time Check-Out Time Diagnosis * PHONE CALL YADIRA IQBAL MD [facility] 01/20/20 24 07/19/2023 9:02AM 07/19/2023 11:59PM * [facility] 07/19/2023 10:30AM 07/19/2023 11:59PM [facility]ART [facility] 07/19/2023 1:12PM 07/19/2023 11:59PM * [facility] 07/19/2023 11:55AM 07/19/2023 11:59PM PAIN MANAGEMENT FOLLOW UP JEANNE KNOTT [facility] 07/19/19 8:55AM 9:42AM Lumbar Radiculopathy,Sp inal Stenosis Lumbar with Neurogenic Claudication,Spo ndylosis with Radiculopathy Lumbar Region Insurance Includes: Active Insurance Policies Plan Name Member ID Group # Subscriber Relationship Effect ganesh Dates 1 - [facility] [id number] OTIS SHRESTHA Self Clinical Notes Includes: Signed Clinical Notes starting from 05/22/2022 * Progress note Date Encounter Last Documented by 07/20/2023 * PHONE CALL Last documented on 07/20/2023; 12:26 PM, JEANNE KNOTT; [facility] Chief Complaint Phone Call - Chief Concern: reason for call:pt called with pill count #3 cyclobenzaprine #43 diclofenac #34 pregabalin pt phone # for return call:[phone] date/initials:07/20/23, kms. Past Medical/Surgical History Reported: Surgery [...] LUZ MARIA BOYLE MD - - DEBBIE ROSAS-BC - Pain Management Health Reminders - Assess Tobacco Use satisfied 07/20/2023. * Progress note Date Encounter Last Documented by 07/19/2023 PAIN MANAGEMENT FOLLOW UP Last d ocumented on 07/19/2023; 10:02 AM, JEANNE LEWIS-BC; [facility] Chief Complaint The Chief Complaint [...] HAS BEEN ORDERED BY SOMEONE ELSE IN [place] . History of Present Illness - Allergy [...] 50% of this time spent in direct [id number] counseling and coordination of care. Results of [...] but may be subject to typographical or door to door sales representative errors. Verify all diagnoses, medications, dosages, and patient instructions with patient and/or the originator of this document. Care Team - LUZ MARIA BOYLE MD - - JEANNE SANTOS, ANP- - Pain Management Health Reminders - Assess BMI satisfied 07/19/2023. - Assess Tobacco Use satisfied 07/19/2023. - Depression Screening satisfied 07/19/2023. - Follow up plan for Depression Screening satisfied 07/19/2023.
--- OUTSIDE RECORDS SUMMARY | 2024-07-10 21:11 | XMS_ITS | Patient Health Record ---
Author Organization [facility] Address [address] [place] [address] Care Team Providers Care Cognos Lead Name Role Phone Carolin Heck Primary Care Provider Allergies Allergen (clinical drug ingredient) Drug/Non Drug Allergy documented on EMR Reaction Allergy Type Onset Date Status codeine Codeine Swelling Drug Allergy 12/03/2020 Active Penicillin Swelling Drug Allergy 12/03/2020 Activ e Reason For Referral No Information Medications Medication SIG (Take, Route, Frequency, Duration) Notes Start Date End Date Status Albuterol Sulfate HFA 108 (90 Base) MCG/ACT 2 puffs as needed Inhalation every 4 hrs for 30 days Active hydrOXYzine Pamoate 25 MG 1 capsule as n eeded Orally every 8 hrs for 30 day(s) 12/03/2020 Active Zyban 150 MG 1 tablet in the morn ing Orally Twice a day for 30 day(s) 12/03/2020 Active Social History Tobacco Use: Social History Observation Description Date Details (start date - stop date) Current Smoker NA - NA Tobacco Use/Smoking Question Answer Notes Are you a current smoker How often do you smoke cigarettes? every day How many cigarettes a day do you smoke? 31 or mo re How soon after you wake up d o you smoke your first cigarette? within 5 minutes Are you interested in quitting? Ready to quit Additional Findings: Tobacco User Very h eavy cigarette smoker (40+ cigs/day) Alcohol Screen (Audit-C) Question Answer Notes Did you have a drink contain ing alcohol in the past year? Yes How often did you have a dri nk containing alcohol in the past year? Monthly or less (1 point) How many drinks did you have on a typical day when you were drinking in the past year? 10 or more drinks (4 points) How often did you have 6 or more drinks on one occasion in the past year? Monthly (2 points) Points 7 Interpretation Positive Sexual History Question Answer Notes Had sex in the past 12 months (vaginal, oral, or anal)? No Have you ever had a Sexually transmitted disease ? No Tobacco use other than smoking: Question Answer Notes Are you an other tobacco user? No Problems Problem Type SNOMED Code ICD Code Onset Dates Problem Status W/U Status Risk Notes Problem 99665581 Anxiety (F41.9) Active confirmed Problem Obesity (792499523) Obesity (BMI 30-39.9) (E66.9) Active confirmed Problem Tobacco dependence (76538536) Tobacco dependence (F17.200) Active confirmed Problem 378753068 Tobacco abuse (Z72.0) Active confirmed Problem 81243884 Chronic obstructive pulmonary disease, unspecified COPD type (J44.9) Active confirmed Problem 160119169 Insomnia, unspecified type (G47.00) Active confirmed Plan Of Treatment No Information Insurance Providers Payer Name Payer Address Payer Phone Subscriber Number Group Number Insured Name Patient Relationship to Insured Coverage Start Date Coverage End Date [facility] [address] [place] [phone] [id number] Jayme Rodríguez Self - patient is the insured Medical (General) History Medical History History ICD Code Foot pain Shortness of breath Fatigue COPD exacerbation Anxiety Insomnia Depression History of suicidal ideation Surgical History Surgery Date(Month/Year) Tonsillectomy Hospitalization History Reason Date(Month/Year) [facility] ER- Suicidal ideation 09/21/20 [facility] ER- Spider bite 10/28/20 [facility] ER- Foot pain, fatigue, shortness of breath 12/03/20
--- OUTSIDE RECORDS SUMMARY | 2024-07-10 21:11 | XMS_ITS | Clinical Summary ---
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 Gender Identity Not on file Sexual Orientation Not on file Plan of Treatment Health Maintenance Due Date Last Done Comments Hepatitis C Virus (HCV) Screening 1994 Hepatitis B Immunization (1 of 3 - 19+ 3-dose series) 2013 Influenza Immunization (#1) 2024 SARS-COV-2 Immunization ( season) 2024 Respiratory Syncytial Virus (RSV) Immunization (Adult) (1 - 1-dose 75+ series) 2069 DTaP/Tdap/Td Immunization Discontinued 03/19/2023 TdaP Immunization Completed 03/19/2023 Meningococcal Immunization (ACWY) Aged Out No longer eligible based on patient's age to complete this topic Pneumococcal Immunization Combined Aged Out No longer eligible b ased on patient's age to complete this topic Rotavirus Immunization Aged Out No lo nger eligible based on patient's age to complete this topic [place] [address] [id number] MEDICAID [facility] Care Teams Drywall Hanger Relationship Specialty Start Date End Date Tavares Sloan PAC [address] [place] [address] PCP - General Physician Shift Supervisor 06/15/23
--- OUTSIDE RECORDS SUMMARY | 2024-07-10 21:11 | XMS_ITS | Encounter Summary ---
Author Organization [facility] Address [address] [place] [address] Care Team Providers Care Truck Driver Teamster Name Role Phone None, Provider Primary Care Provider Leighton Hawthorne MD Primary Care Provider None, Provider Primary Care Provider Tavares Khan Primary Care Provider [phone] Encounter Details Date Type Department Care Team (Late st Contact Info) Description 10/08/2018 Abstract [facility] CONVERSION [address] [place] [address] , Generic Conversion, Social History Tobacco Use Types Packs/Day Years Used Date Smoking Tobacco: Never Assessed Sex and Gender Information Value Date Recorded Sex Assigned at Not on file 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 Gender Identity Not on file Sexual Orientation Not on file documented as of this encounter Plan of Treatment Not on file documented as of this encounter Visit Diagnoses Not on filedocumented in this encounter Additional Health Concerns Infection Onset Date Last Indicated Resolved Time COVID-19 Rule Out 05/07/2020 05/07/2020 05/07/2020 11:29 AM DOZER OPERATOR COVID-19 Rule Out 04/22/2021 04/22/2021 04/22/2021 9:58 PM DOZER OPERATOR COVID-19 Confirmed 04/22/2021 04/22/2021 12:34 AM DOZER OPERATOR COVID-19 Rule Out 08/13/2022 08/13/2022 08/13/2022 11:19 AM CDT COVID-19 Rule Out 08/13/2022 08/13/2022 08/14/2022 7:33 PM CDT documented as of this encounter Care Teams Truck Driver Teamster Relationship Specialty Start Date End Date None, Provider, PCP - General 11/07/18 05/28/19 Leighton Burciaga MD [address] [place] [phone] PCP - General FAMILY PRACTICE 05/29/19 10/26/20 None, Provider, PCP - General 10/27/20 03/20/23 Tavares Sloan PA [address] [place] [phone] PCP - General PHYSICIAN AUTOMOTIVE PARTS COUNTER PERSON 03/21/23 documented as of this encounter
--- NOTE | 2024-07-10 21:29 | ED_ITS ---
HPI - General Adult General Chief complaint: Headache Stated complaint: headache, body aches Time Seen by Provider: 07/10/24 21:24 Source: patient and family (spouse) Mode of arrival: ambulatory Limitations: no limitations and other (poor historian) History of Present Illness HPI narrative: 28 year old male presents to the Emergency Department with multiple complaints. Patient states he has headache for several days. States no history of headaches. He complains of chronic back pain. He states he is having pain all over to bilateral flanks. His mother had Influenza 3 weeks ago and is now hospitalized with pneumonia. Patient denies any exposure otherwise. States he just stays home. He states he has COPD and continues to smoke. Patient is very poor historian. Onset (ago): unknown (varying, depending on which complaint) Location: head, chest, back and abdomen Relieving factors: none Exacerbating factors: none Related Data Home Medications ?Medication ?Instructions ?Recorded ?Confirmed ?Last Taken ?Type diclofenac sodium 75 mg 75 mg PO BID PRN Pain 12/01/23 07/10/24 Unknown History tablet,delayed release pregabalin 150 mg capsule 150 mg PO DAILY pain 12/01/23 07/10/24 Unknown History methocarbamol 750 mg tablet 750 mg PO DAILY 07/10/24 07/10/24 Unknown History omeprazole 20 mg capsule,delayed 20 mg PO DAILY 07/10/24 07/10/24 Unknown History release Allergies Allergy/AdvReac Type Severity Reaction Status Date / Time codeine Allergy Rash Verified 12/01/23 08:25 Penicillins Allergy Unknown Verified 12/01/23 08:25 Review of Systems 2 Review of Systems: All systems reviewed & are unremarkable except as noted in HPI and below Constitutional: Constitutional: Reports as per HPI, Denies chills and Denies fever(s) Eyes: Eyes: Reports as per HPI, Denies change in vision and Denies photophobia ENT: Reports system reviewed and no additional complaints, except as documented Cardiovascular: Cardiovascular: Reports as per HPI and Denies chest pain Respiratory: Respiratory: Reports as per HPI, Reports cough and Reports dyspnea Gastrointestinal: Gastrointestinal: Reports as per HPI, Reports abdominal pain, Denies diarrhea, Denies nausea and Denies vomiting Genitourinary: Genitourinary: Reports no additional male genitourinary complaints Musculoskeletal: Musculoskeletal: Reports no additional musculoskeletal complaints and Reports myalgias Integumentary/Breasts: Skin/Breast: Reports system reviewed and no additional complaints, except as docu Neurologic: Reports system reviewed and no additional complaints, except as documented and Reports headache(s) [facility] Past Medical History Medical History COPD (chronic obstructive pulmonary disease) Surgical History Surgical History History of dental surgery History of tonsillectomy Wrist fracture Leg fracture, left Family History Family History Mother Diabetes mellitus Social History Social History Smoking packs per day: 3 Smoking cigarettes per day: 60.0 Years smoked: 10 Smoking pack-years: 30.00 Smoking status: Current every day smoker Alcohol intake: never Alcohol use details: occasional Substance use type: marijuana Other substance usage details: once weekly Living arrangements: with family 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 Gender identity (if verbalized by the patient): Male Exam 2 Const: General: ill appearing (mildly) Nutritional Appearance: obese O rientation/consciousness: patient oriented x3 Other: poor historian HENMT: Head: normal to inspection Ears: external ears normal F shaun/Nose/Sinus: Normal external nose present Face and sinus: normal facial exam Mouth: Yes Normal oral and palatal mucosa present Throat: posterior oropharynx normal Eyes: Conjunctivae: conjunctivae normal Pupils: Equal, round and reactive pupils present EOM: EOMs intact bilaterally Direct Ophthalmoscopy: no photophobia Neck: Neck: normal visual inspection, no lymphadenopathy and no meningeal signs Chest: Chest palpation & inspection: normal inspection of the chest Resp: Effort & Inspection: normal respiratory effort and not labored Other: unable to get clear assessment of lung sounds because patient keeps purposely making stridorous sounds when asked to take deep breaths Cardio: Rate: regular rate Rhythm: regular rhythm GI: Inspection: non-distended GI Palp: Yes Soft to palpation and No Tenderness to palpation present (GI) : General: Yes bladder normal to palpation Back/Spine/Pelvis: Back: no CVA tenderness Skin: General skin exam: normal color Rashes: no rashes Neuro: General: patient oriented x3, moves all extremities, no meningeal signs, no focal motor deficits and CN's II-XI intact bilaterally Cranial nerves: Yes Nystagmus not present Speech: normal speech Gait exam (Neuro): Normal gait present Extrem: General: normal to inspection and no clubbing, cyanosis or edema Course Course Emergency Course: 28 y/o male presents to the ED c/o multiple complaints. Basically he is having pain all over and headache PE: no acute findings CBC: H/h 15.7/47.7, Plt 113; wbc 12.5 CMP: Na 140, K 4, Cl 104, CO2 28, Glc 105, BUN 14, Cr 1.2; LFT's normal ESR: 22 CRP: 0.7 UA: unremarkable UDS: +THC Strep: negative Covid: negative Influenza: negative RSV: negative CXR: NAD *patient decided he did not want to wait for written discharge instructions and he is leaving AMA Vital Signs Vital signs: Vital Signs Temperature 36.8 C 07/10/24 21:10 Pulse Rate 100 07/10/24 21:10 Respiratory Rate 20 07/10/24 21:10 Blood Pressure 136/79 07/10/24 21:10 Pulse Oximetry 96 07/10/24 21:10 Oxygen Delivery Room Air 07/10/24 21:10 Temperature 36.8 C 07/10/24 21:10 Pulse Rate 100 07/10/24 21:10 Respiratory Rate 20 07/10/24 21:10 Blood Pressure 136/79 07/10/24 21:10 Pulse Oximetry 96 07/10/24 21:10 Oxygen Delivery Room Air 07/10/24 21:10 Medical Decision Making Vital Signs Vital Signs: Vital Signs Temperature 36.8 C 07/10/24 21:10 Pulse Rate 100 07/10/24 21:10 Respiratory Rate 20 07/10/24 21:10 Blood Pressure 136/79 07/10/24 21:10 Pulse Oximetry 96 07/10/24 21:10 Oxygen Delivery Room Air 07/10/24 21:10 Temperature 36.8 C 07/10/24 21:10 Pulse Rate 100 07/10/24 21:10 Respiratory Rate 20 07/10/24 21:10 Blood Pressure 136/79 07/10/24 21:10 Pulse Oximetry 96 07/10/24 21:10 Oxygen Delivery Room Air 03/10/25 21:10 Lab Data 07/10/24 21:51 07/10/24 21:51 Labs: Lab Results 07/10/24 07/10/24 07/10/24 Range/Units 21:26 21:51 21:52 WBC 12.5 H (4.8-10.8) K/mm3 RBC 5.33 (4.70-6.10) M/mm3 Hgb 15.7 (14.0-18.0) g/dL Hct 47.7 (40.0-54.0) % MCV 89.5 (78.0-102.0) fL MCH 29.5 (27.0-31.0) pg MCHC 32.9 (32-36) g/dL RDW 13.4 (11.6-14.4) % Plt Count 113 L (150-420) K/mm3 MPV 11.6 H (8.7-11.0) fl Immature Gran % (Auto) Not Reportable Neut % (Auto) Not Reportable Lymph % (Auto) Not Reportable [place] % (Auto) Not Reportable Eos % (Auto) Not Reportable Baso % (Auto) Not Reportable Lymph # (Auto) Not Reportable [place] # (Auto) Not Reportable Eos # (Auto) Not Reportable Baso # (Auto) Not Reportable Abs Immat Gran (auto) Not Reportable Absolute Neuts (auto) Not Reportable Absolute Nucleated RBC Not Reportable Neutrophils % (Manual) 60 (46-73) % Band Neutrophils % 0 (0-6) % Lymphocytes % (Manual) 27 (18-44) % Monocytes % (Manual) 9 (3-9) % Eosinophils % (Manual) 3 (1-6) % Basophils % (Manual) 1 (0-1) % Nucleated RBC % Not Reportable Abs Neuts (Manual) 7.50 H (1.3-6.7) K/mm3 Abs Lymphs (Manual) 3.37 (1.1-4.5) K/mm3 Abs Monocytes (Manual) 1.12 H (0.1-0.90) K/mm3 Absolute Eos (Manual) 0.37 (0.02-0.50) K/mm3 Abs Basophils (Manual) 0.12 H (0-0.1) K/mm3 Platelet Estimate Adequate (Adequate) Schistocytes Not Reportable ESR 22 H (0-15) mm/hr Sodium 140 (136-145) mmol/L Potassium 4.0 (3.5-5.1) mmol/L Chloride 104 (98-108) mmol/L Carbon Dioxide 28 (21-32) mmol/L Anion Gap 8 (4-12) mmol/L BUN 14 (7-18) mg/dL Creatinine 1.20 (0.70-1.30) mg/dL Estim Creat Clear Calc 112 ml/min Estimated GFR > 60 (59 - ) Glucose 105 H (70-99) mg/dL Calculated Osmolality 290 (285-295) mOsm/kg Calcium 9.5 (8.5-10.1) mg/dL Total Bilirubin 0.3 (0.00-1.00) mg/dL AST 18 (15-37) U/L ALT 49 (16-63) U/L Alkaline Phosphatase 100 (46-116) U/L C-Reactive Protein 0.7 (0.0-0.9) mg/dL Total Protein 8.0 (6.4-8.2) g/dL Albumin 3.8 (3.4-5.0) g/dL Urine Color Light yellow (Yellow) Urine Appearance Clear (Clear) Urine pH 5.5 (5.0-8.0) Ur Specific [place] 1.025 H (1.010-1.020) Urine Protein Negative (Negative) Urine Glucose (UA) Negative (Negative) Urine Ketones Negative (Negative) Ur Blood (Man) Negative (Negative) Urine Nitrate Negative (Negative) Urine Bilirubin Negative (Negative) Urine Urobilinogen 0.2 (0.2-1.0) mg/dL Ur Leukocyte Esterase Negative (Negative) Urine Opiates Screen Negative (Negative) Urine Methadone Screen Negative (Negative) Ur Barbiturates Screen Negative (Negative) Ur Phencyclidine Scrn Negative (Negative) Ur Amphetamine Screen Negative (Negative) U Benzodiazepines Scrn Negative (Negative) Urine Cocaine Screen Negative (Negative) U Cannabinoids Screen Positive A (Negative) Influenza A (RT-PCR) Negative (Negative) Influenza B (RT-PCR) Negative (Negative) RSV (RT-PCR) Negative (Negative) SARS-CoV-2 RNA (RT-PCR) Negative (Negative) Group A Strep (PCR) Not detected (Negative) Discharge Plan Discharge Clinical Impression: Multiple somatic complaints Patient Disposition: Left Against Medical Advice Condition: Stable Additional Instructions: Patient did not want to wait for any further verbal or written instructions and left AMA Patient Language: Malay Prescriptions: No Action diclofenac sodium 75 mg tablet,delayed release (DR/EC) 75 mg PO BID PRN (Reason: Pain) pregabalin 150 mg capsule 150 mg PO DAILY methocarbamol 750 mg tablet 750 mg PO DAILY omeprazole 20 mg capsule,delayed release(DR/EC) 20 mg PO DAILY Follow-up/Referrals: Luther,KENDRA Chapin [Primary Care Provider] - Time of Disposition: 23:18
--- OUTSIDE RECORDS SUMMARY | 2024-07-10 21:34 | XMS_ITS | Encounter Summary ---
Author Organization [facility] Address [facility] [place] [address] Care Team Providers Care Production Manager Name Role Phone Tavares Sloan Primary Care Provider [phone] Reason for Visit * Radiology Services (Routine) - Closed Specialty Diagnoses / Procedures Referred By Contac t Referred To Contact Magnetic Resonance Imaging Diagnoses S/P lumbar microdiscectomy Lumbar radiculopathy Procedures MRI Lumbar Spine Wwo Contrast Pardeep Lambert MD [address] [facility] [address] [place] [address] Referral ID Status Reason Start Date Expiration Date Visits Re quested Visits Authorized [id number] Closed 07/04/2024 07/04/2025 1 1 Encounter Details Date Type Department Care Team (Latest Contact Info) Description 07/08/2024 4:57 PM BLOCK HAND - 07/08/2024 11:59 PM [facility] Hospital Encounter [facility] MRI [address] [place] [id number] Pardeep Lambert MD [facility] [facility] [address] [place] [phone] Discharge Disposition: Home or Self Care Social [...] take with other nsaids 06/14/2023 HYDROcodone-acetaminophe n ([place]) 10-325 MG tablet 08/25/2023 methocarbamol (Robaxin) 750 [...] SPINE WWO CONTRAST Routine 07/08/2024 5:17 PM BLOCK HAND S/P lumbar microdiscectomy Lumbar radiculopathy documented in this encounter Results * MRI Lumbar Spine Wwo Contrast (07/08/2024 5:17 PM BLOCK HAND) Anatomical Region Laterality Modality Spine Magnetic Resonan [...] DATE/TIME OF EXAM: 07/08/2024 5:21 PM, LOCATION [facility] INDICATION: Z98.890: S/P lumbar microdiscectomy M54.16: Lumbar [...] DATE/TIME OF EXAM: 07/08/2024 5:21 PM, LOCATION [facility] INDICATION: Z98.890: S/P lumbar microdiscectomy M54.16: Lumbar [...] $ Given - Contrast 07/08/2024 5:19 PM BLOCK HAND 10 mL documented in this encounter Care Teams Production Manager Relationship Specialty Start Date End Date Tavares Sloan PA [address] [place] [address] PCP - General Physician Patient Care Technician 06/06/24 documented as of this encounter
--- OUTSIDE RECORDS SUMMARY | 2024-07-10 21:34 | XMS_ITS | Clinical Summary ---
Author Organization [facility] Address [address] [place] [address] Phone Care Team Providers Care Handy Man Name Role Phone TOM KNOTT, JEANNE Mondragon [phone] [place] ALBERTS, LUZ MARIA Neff Primary Care Provider [phone] Reason for Visit and Chief Complaint * PHONE CALL Plan of Treatment Pending Tests Order Diagnosis Results Due Ordering P rovider Radiology @ other - MRI MRI Lumbar w/o contrast Spinal stenosis, lumbar region with neurogenic claudication 07/08/23 JEANNE KNOTT Last Documented On 4 9:12AM ; [facility] Therapy - Physical Therapy Physical Therapy Spinal stenosis, lumbar region with neurogenic claudication 07/19/23 JEANNE KNOTT Last Documented On 4 9:11AM ; [facility] Assessments Includes: Assessments from this [...] On 4 1:39PM By JEANNE KNOTT ; [facility] Diclofenac Sodium 75 MG Oral Tablet Delayed Release 06/14/2023 Provider: JEANNE WILKS Diagnosis: Radiculopathy, l umbar region 1 po bid prndo not take with other nsaids Last Documented On 4 1:39PM By JEANNE KNOTT ; [facility] Pregabalin 150 MG Oral Capsule 06/14/2023 Provider: JEANNE Nunez Diagnosis: Radiculopathy, l umbar region 1 CAPSULE TWO TIMES A DAY Last Documented On 4 1:39PM By JEANNE FERNANDEZ ; [facility] Atorvastatin Calcium 20 MG Oral Tablet 05/17/2023 Pr ovider: Diagnosis: Last Documented On 4 10:36AM By Rona DRAPER ; [facility] Past Medications on file Ritalin SR 20 MG OR TBCR 08/11/2011 - 09/10/2011 Provider: DEE DEE Huang 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 Diagnosis: Last Documented On 04/20/2011 3:15PM By DEE DEE ESPINAL MD ; [facility] Medications Administered Includes: Administered Medications from this encounter No Administered Medications Recorded Results Includes: Results discussed during this encounter No Results Recorded For Specified Dates History of Present Illness Includes: History of Present Illness from this encounter No History of Present Illness Recorded Social History Description Last Updated Current smoker 06/14/2023 Last Documented On 4 11:55AM ; [facility] Alcohol 05/17/2023 Last Documented On 4 11:55AM ; [facility] Amount of alcohol per day: 0 05/17/2023 Last Documented On 4 11:55AM ; [facility] Difficulty walking 05/17/2023 Last Documented On 4 11:55AM ; [facility] Smoking packs of cigarettes per day 2 Last Documented On 4 11:55AM ; [facility] Nutritional quality of diet 12/08/2010 Last Documented On 4 11:55AM ; [facility] The racial background was unknown ethnic minority 12/08/2010 Last Documented On 4 11:55AM ; [facility] Occupation STUDENT 12/08/2010 Last Documented On 4 11:55AM ; [facility] Single 12/08/2010 Last Documented On 4 11:55AM ; [facility] Smoking Status Unknown Procedures and Surgical History Surgical History Last Updated Surgical / procedural history Yes 2023 Last Documented On 4 11:55AM ; [facility] History of tonsillectomy 12/08/2010 Last Documented On 4 11:55AM ; [facility] Medical History Includes: Medical History addressed during this encounter Description Last Updated CT/MRI Yes 05/17/2023 Last Documented On 4 11:55AM ; [facility] Deep muscle stimulation 05/17/2023 Last Documented On 4 11:55AM ; [facility] Injection/Nerve blocks 05/17/2023 Last Documented On 4 11:55AM ; [facility] Message/Acupressure 05/17/2023 Last Documented On 4 11:55AM ; [facility] Myelogram Yes 05/17/2023 Last Documented On 4 11:55AM ; [facility] NCV/EMG Yes 05/17/2023 Last Documented On 4 11:55AM ; [facility] Physical therapy 05/17/2023 Last Documented On 4 11:55AM ; [facility] Please list all illnesses/conditions you have been diagnosed with: Copd 05/17/2023 Last Documented On 4 11:55AM ; [facility] Please list all surgeries: Legs had fat removed 201205/17/2023 Last Documented On 4 11:55AM ; [facility] Severe Pain 05/17/2023 Last Documented On 4 11:55AM ; [facility] X-rays Yes 05/17/2023 Last Documented On 4 11:55AM ; [facility] TAKES CONCERTA 12/08/2010 Last Documented On 4 11:55AM ; [facility] Surgery 2009-CLOSED REDUCTION RT WRIST 0 12/08/2010 Last Documented On 4 11:55AM ; [facility] Family History Includes: Family [...] Active Last Documented On 4 9:07AM ; [facility] Latex Allergy Skin Rashes / Eruption of skin 4 Active Last Documented On 4 9:07AM ; [facility] Encounters Encounter Provider Location Date Check-In Time Check-Out Time Diagnosis * PHONE CALL JEANNE KNOTT 07/20/2023 11:55AM 11:59PM Insurance Includes: Active Insurance Policies Plan Name Member ID Group # Subscriber Relationship Effect ganesh Dates - [facility] [id number] [facility] Clinical Notes Includes: Clinical Notes from this encounter * Progress note Date Encounter Last Documented by 07/20/2023 * PHONE CALL Last documented on 07/20/2023; 12:26 PM, JEANNE KNOTT; [facility] Chief Complaint Phone Call - Chief Concern: reason for call:pt called with pill count #3 cyclobenzaprine #43 diclofenac #34 pregabalin pt phone # for return call:[phone] date/initials:07/20/23, kms. Past Medical/Surgical History Reported: Surgery [...]
--- OUTSIDE RECORDS SUMMARY | 2024-07-10 21:34 | XMS_ITS | Patient Health Summary ---
Author Organization [facility] Address [address] [place] [address] Care Team Providers Care Plant Etiologist Name Role Phone Tavares Sloan Primary Care Provider [phone] [facility],non-owned Affiliates and Associated Physician Practices is amultiple site organization consisting of ambulatory clinics and hospital sitesin [place], [place], [place] and [place]. This disclosure is being madepursuant to the Care Everywhere program and may not contain all information available regarding this patient. Last updated 18.[facility] Allergies * Latex(Rash) -Medium Criticality * Penicillins(Rash,Anaphylaxis) [...] Base) MCG/ACT inhaler (Started 04/16/2023) * HYDROcodone-acetaminophen ([place]) 10-325 MG tablet(Started 08/25/2023) * albuterol-ipratropium ([place]) [...] Comments Blood Pressure 127/77 07/03/2024 1:20 PM POLLUTION CONTROL ENGINEER Pulse 92 07/03/2024 1:20 PM POLLUTION CONTROL ENGINEER Temperature 36.9 C (98.5 F) 04/24/2024 10:21 AM POLLUTION CONTROL ENGINEER Respiratory Rate 18 04/06/2024 12:48 PM POLLUTION CONTROL ENGINEER Oxygen Saturation 96% 07/03/2024 1:20 PM POLLUTION CONTROL ENGINEER Inhaled Oxygen Concentration - - Weight 142.9 kg (315 lb) 07/03/2024 1:20 PM POLLUTION CONTROL ENGINEER Height 172.7 cm (5' 8 ) 07/03/2024 1:20 PM POLLUTION CONTROL ENGINEER Body Mass Index 47.9 07/03/2024 1:20 PM POLLUTION CONTROL ENGINEER Procedures * MRI LUMBAR SPINE WWO CONTRAST(Performed 07/08/2024) Performed for S/P lumbar microdiscectomy, Lumbar radiculopathy * CARDIAC RHYTHM STRIP ORDER(Performed 04/10/2024) * [place] DUNCAN SURGERY(Performed 04/06/2024) Performed for Pain * ENDOTRACHEAL TUBE NOTE(Performed 04/06/2024) * ND LAMINOTOMY,LUMBAR DISK,1 INTRSP(Performed 04/06/2024) Performed for Diagnosis unknown Results * MRI Lumbar Spine Wwo Contrast (07/08/2024 5:17 PM POLLUTION CONTROL ENGINEER) Anatomical Region Laterality Modality Spine Magnetic Resonan [...] DATE/TIME OF EXAM: 07/08/2024 5:21 PM, LOCATION [facility] INDICATION: Z98.890: S/P lumbar microdiscectomy M54.16: [...] DATE/TIME OF EXAM: 07/08/2024 5:21 PM, LOCATION [facility] INDICATION: Z98.890: S/P lumbar microdiscectomy M54.16: [...] CARDIAC RHYTHM STRIP ORDER (04/10/2024 4:43 PM POLLUTION CONTROL ENGINEER) Narrative 04/10/2024 4:43 PM POLLUTION CONTROL ENGINEER Ordered by an unspecified provider. Scanned Document CARDIAC SERVICES ORD ERABLES * [place] Duncan Surgery (04/06/2024 11:00 AM POLLUTION CONTROL ENGINEER) Narrative [facility] - 04/07/2024 2:19 PM POLLUTION CONTROL ENGINEER For details of this study, please see the providers note. Pardeep Lambert MD FLUOROSCOPY ORDKarley RABLES [facility] [address] [place] [address] * ETT LINE PERFORMABLE (04/06/2024 8:19 AM POLLUTION CONTROL ENGINEER) Narrative Diego Hood III, APRN-CRNA - 04/06/2024 8:19 AM POLLUTION CONTROL ENGINEER Diego Hood III, APRN-CRNA 04/06/2024 8:20 AM Endotracheal Tube Placement: Patient Location: OR. Intubation Event Date/Time: 04/06/2024 7:55 AM Procedure: intubation (33302) Procedure Section: Sedation: under general anesthesia. Indications [...] Staff Section Anesthesia Provider: Diego Hood III, APRN-FUEL BUYER Provider #1: Portillo Jenkins, Performed the procedure. Bert Osuna MD GENERAL ANESTHESIA ORDERABLES Care Teams Plant Etiologist Relationship Specialty Start Date End Date Tavares Sloan PA [address] [place] [phone] PCP - General Physician Setter [employer] Machines 06/06/24
--- OUTSIDE RECORDS SUMMARY | 2024-07-10 21:34 | XMS_ITS | Clinical Summary ---
Author Organization [facility] Address [address] [place] [phone] Phone Care Team Providers Care Calender Roll Press Operator Name Role Phone TOM KNOTT, JEANNE Mondragon [phone] [place] ALBERTS, LUZ MARIA Neff Primary Care Provider [phone] Reason for Visit and Chief Complaint CHART UPDATE Plan of Treatment Pending Tests Order Diagnosis Results Due Ordering P rovisandeep Radiology @ other - MRI MRI Lumbar w/o contrast Spinal stenosis, lumbar region with neurogenic claudication 07/08/23 JEANNE KNOTT Last Documented On 4 9:12AM ; [facility] Therapy - Physical Therapy Physical Therapy Spinal stenosis, lumbar region with neurogenic claudication 07/19/23 JEANNE KNOTT Last Documented On 4 9:11AM ; [facility] Assessments Includes: Assessments from this encounter [...] On 4 1:39PM By JEANNE KNOTT ; [facility] Diclofenac Sodium 75 MG Oral Tablet Delayed Release 06/14/2023 Provider: JEANNE WILKS Diagnosis: Radiculopathy, l umbar region 1 po bid prndo not take with other nsaids Last Documented On 4 1:39PM By JEANNE KNOTT ; [facility] Pregabalin 150 MG Oral Capsule 06/14/2023 Provider: JEANNE WILKS Diagnosis: Radiculopathy, l umbar region 1 CAPSULE TWO TIMES A DAY Last Documented On 4 1:39PM By JEANNE KNOTT ; [facility] Atorvastatin Calcium 20 MG Oral Tablet 05/17/2023 Pr ovider: Diagnosis: Last Documented On 4 10:36AM By Rona DRAPER ; [facility] Medications Administered Includes: Administered Medications from this [...] Documented On 4 9:07AM ; [facility] Latex Allergy Skin Rashes / Eruption of skin 4 Active Last Documented On 4 9:07AM ; [facility] Encounters Encounter Provider Location Date Check-In Time Check-Out Time Diagnosis CHART UPDATE JEANNE KNOTT 07/22/2023 1:12PM 11:59PM Insurance Includes: Active Insurance Policies Plan Name Member ID Group # Subscriber Relationship Effect ganesh - [facility] [id number] OTIS Ruff Clinical Notes Includes: Clinical Notes from this encounter No Clinical Notes Recorded
--- OUTSIDE RECORDS SUMMARY | 2024-07-10 21:34 | XMS_ITS | Clinical Summary ---
Author Organization [facility] Address [address] [place] [id number] Care Team Providers Care Heel Pricker Name Role Phone Tavares Sloan Primary Care Provider [phone] Allergies Active Allergy Reactions Criticality Noted Date [...] on file Legal Sex Male 10:53 PM CONTROL INTEGRATION ENGINEER Gender Identity Not on file Sexual [...] to complete this topic Insurance Care Teams Heel Pricker Relationship Specialty Start Date End Date Tavares Sloan PA [address] [place] [phone] PCP - General PHYSICIAN STUDIO COORDINATOR 03/21/23
--- OUTSIDE RECORDS SUMMARY | 2024-07-10 21:34 | XMS_ITS | Clinical Summary ---
Author Organization [facility] Address [address] [facility] [place] [address] Care Team Providers Care Airconditioning Drafting Officer Name Role Phone Tavares Sloan Primary Care Provider [phone] Source Comments [facility],non-owned Affiliates and Associated Physician Practices is amultiple site organization consisting of ambulatory clinics and hospital sitesin [place], [place], [place] and [place]. This disclosure is being madepursuant to the Care Everywhere program and may not contain all information available regarding this patient. Last updated 18.[facility] Allergies Active Allergy Reactions Criticality Noted Date [...] Base) MCG/ACT inhaler 04/16/2023 Active HYDROcodone-acetami nophen ([place]) 10-325 MG tablet 08/25/2023 Active albuterol-ipratropi um [...] Department Care Team Description 07/08/2024 4:57 PM AUTOMATION QA LEAD - 07/08/2024 11:59 PM AUTOMATION QA LEAD Hospital Encounter [facility] MRI [address] [place] [address] Pardeep Lambert MD Discharge Disposition: Home or Self Care 07/03/2024 1:45 PM AUTOMATION QA LEAD Office Visit [facility] - Neurosurgery [address] [place] [address], [place] [address] Pardeep Lambert MD S/P lumbar microdiscectomy (Primary Dx); Lumbar radiculopathy 07/03/2024 Travel 04/24/2024 10:15 AM AUTOMATION QA LEAD Office Visit [facility] - Neurosurgery [address] [place] [phone] Pardeep Lambert MD S/P lumbar microdiscectomy (Primary Dx) 04/24/2024 Travel 04/14/2024 Orders Only [facility] [address] [place] [address] Pat Gardner APRN-KARI from Last 3 Months [...] Comments Blood Pressure 127/77 07/03/2024 1:20 PM AUTOMATION QA LEAD Pulse 92 07/03/2024 1:20 PM AUTOMATION QA LEAD Temperature 36.9 C (98.5 F) 04/24/2024 10:21 AM AUTOMATION QA LEAD Respiratory Rate 18 04/06/2024 12:48 PM AUTOMATION QA LEAD Oxygen Saturation 96% 07/03/2024 1:20 PM AUTOMATION QA LEAD Inhaled Oxygen Concentration - - Weight 142.9 kg (315 lb) 07/03/2024 1:20 PM AUTOMATION QA LEAD Height 172.7 cm (5' 8 ) 07/03/2024 1:20 PM AUTOMATION QA LEAD Body Mass Index 47.9 07/03/2024 1:20 PM AUTOMATION QA LEAD Plan of Treatment Health Maintenance Due Date [...] SPINE WWO CONTRAST Routine 07/08/2024 5:17 PM AUTOMATION QA LEAD S/P lumbar microdiscectomy Lumbar radiculopathy from Last 3 Months Results * MRI Lumbar Spine Wwo Contrast (07/08/2024 5:17 PM AUTOMATION QA LEAD) Anatomical Region Laterality Modality Spine Magnetic Resonan [...] DATE/TIME OF EXAM: 07/08/2024 5:21 PM, LOCATION [facility] INDICATION: Z98.890: S/P lumbar microdiscectomy M54.16: Lumbar [...] DATE/TIME OF EXAM: 07/08/2024 5:21 PM, LOCATION [facility] INDICATION: Z98.890: S/P lumbar microdiscectomy M54.16: Lumbar [...] ORDERABLES from Last 3 Months Care Teams Airconditioning Drafting Officer Relationship Specialty Start Date End Date Tavares Sloan PA [address] [place] [address] PCP - General Physician Biodiesel Engineering Manager 06/06/24
--- OUTSIDE RECORDS SUMMARY | 2024-07-10 21:34 | XMS_ITS ---
Care Plan - [facility] Created on: July 10, 2024 OTIS SHRESTHA : 1995 Sex: Male Author Organization [facility] Address [address] [place] [phone] Phone Care Team Providers Care Pediatric Acute Care Unit Nurse Name Role Phone TMO KNOTT, JEANNE Deluca Unavailable [phone] [place] ALBERTS, LUZ MARIA Neff Primary Care Provider [phone]
--- OUTSIDE RECORDS SUMMARY | 2024-07-10 21:34 | XMS_ITS | Clinical Summary ---
Author Organization [facility] Address [address] [place] [phone] Phone Care Team Providers Care Medical Record Clerk Name Role Phone TOM LEWIS-MARGARET, JEANNE Deluca Unavailable [phone] MON[place] ALBERTS, LUZ MARIA Neff Primary Care Provider [phone] Reason for Visit and Chief Complaint The [...] HAS BEEN ORDERED BY SOMEONE ELSE IN [place] ~ ~ Plan of Treatment Pending Tests Order Diagnosis Results Due Ordering Sampson luna Radiology @ other - MRI MRI Lumbar w/o contrast Spinal stenosis, lumbar region with neurogenic claudication 07/08/23 JEANNE SANTOS ANP-BC Last Documented On 4 9:12AM ; [facility] Therapy - Physical Therapy Physical Therapy Spinal stenosis, lumbar region with neurogenic claudication 07/19/23 JEANNE SANTOS ANP-BC Last Documented On 4 9:11AM ; [facility] Assessments Includes: Assessments from this encounter Findings - Lumbar spondylosis with radiculopathy [M47.26 - Other spondylosis with radiculopathy, lumbar region] - Last Documented On 07/19/2023 10:02AM ; [facility] - Lumbar stenosis with neurogenic claudication [M48.062 - Spinal stenosis, lumbar region with neurogenic claudication] - Last Documented On 07/19/2023 10:02AM ; [facility] - Lumbar radiculopathy [M54.16 - Radiculopathy, lumbar region] - Last Documented On 07/19/2023 10:02AM ; [facility] Medical Equipment - Implanted Devices Includes: Current Devices No Medical Equipment Recorded Medications Includes: Medications discussed during this encounter and other current Medications Discontinued / Stopped on this date JEANNE KNOTT on 05/17/2023 Gabapentin 600 MG Oral Tablet Provider: JEANNE KNOTT Diagnosis: Spinal stenosis, lumbar region with neurogenic claudication Last Documented On 07/19/2023 9:08AM By Rona DRAPER ; [facility] Current Medications (continue as prescribed) Cyclobenzaprine HCl 10 MG Oral Tablet 06/14/2023 Provider: JEANNE KNOTT Diagnosis: Spinal stenosis, lumbar region with neurogenic claudication 1/2 t o1 po bid prn Last Documented On 4 1:39PM By JEANNE KNOTT ; [facility] Diclofenac Sodium 75 MG Oral Tablet Delayed Release 06/14/2023 Provider: JEANNE WILKS Diagnosis: Radiculopathy, l umbar region 1 po bid prndo not take with other nsaids Last Documented On 4 1:39PM By JEANNE KNOTT ; [facility] Pregabalin 150 MG Oral Capsule 06/14/2023 Provider: JEANNE WILKS Diagnosis: Radiculopathy, l umbar region 1 CAPSULE TWO TIMES A DAY Last Documented On 4 1:39PM By JEANNE KNOTT ; [facility] Atorvastatin Calcium 20 MG Oral Tablet 05/17/2023 Pr ovider: Diagnosis: Last Documented On 4 10:36AM By Rona RDAPER ; [facility] Past Medications on file Ritalin SR 20 MG OR TBCR 08/11/2011 - 09/10/2011 Provider: DEE DEE Huang Diagnosis: ATTN DEFIC NONHY PERACT 2 tabs od Last Documented On 08/11/2011 10:22AM By DEE DEE ESPINAL MD ; [facility] Ritalin SR 10 MG OR TABS 04/20/2011 - 05/20/2011 Provider: DEE DEE Huang Diagnosis: ATTN DEFIC NONHY PERACT 2 tabs Last Documented On 04/20/2011 3:26PM By DEE DEE ESPINAL MD ; [facility] Ritalin SR 20 MG OR TBCR 04/20/2011 - 05/04/2011 Provi sandeep: DEE DEE ESPINAL M.D. Diagnosis: Last Documented On 04/20/2011 3:15PM By DEE DEE ESPINAL MD ; [facility] Medications Administered Includes: [...] 97 Last Documented: On 07/19/2023 9:05AM ; [facility] Results Includes: Results discussed during this [...] 07/19/2023 Last Documented On 4 10:02AM ; [facility] Current smoker 06/14/2023 Last Documented On 4 8:57AM ; [facility] Alcohol 05/17/2023 Last Documented On 4 8:57AM ; [facility] Amount of alcohol per day: 0 05/17/2023 Last Documented On 4 8:57AM ; [facility] Difficulty walking 05/17/2023 Last Documented On 4 8:57AM ; [facility] Smoking packs of cigarettes per day 2 Last Documented On 4 8:57AM ; [facility] Nutritional quality of diet 12/08/2010 Last Documented On 4 8:57AM ; [facility] The racial background was unknown ethnic minority 12/08/2010 Last Documented On 4 8:57AM ; [facility] Occupation STUDENT 12/08/2010 Last Documented On 4 8:57AM ; [facility] Single 12/08/2010 Last Documented On 4 8:57AM ; [facility] Smoking Status Unknown Procedures and Surgical History Includes: Procedures from this encounter Procedures Code Diagnosis Performing Provider Service Location Service Date CLINIC VISIT T1015 Spinal stenosis, lumbar region with neurogenic claudication, Other spondylosis with radiculopathy, lumbar region, Radiculopathy, lumbar region JEANNE SANTOS ANP-BC [facility] 07/19/2023 Last Documented On 4 3:05PM ; [facility] use of tobacco assessment performed 1000F Last Documented On 4 8:57AM ; [facility] review of medications documented 1160F Last Documented On 4 8:57AM ; [facility] assessment of suicide risk performed Last Documented On 4 8:57AM ; [facility] screening for adult depression: impressi on and score nine Last Documented On 4 8:57AM ; [facility] standardized depression screening: posit ganesh for symptoms Last Documented On 4 8:57AM ; [facility] Clinical summary provided to patient ~ Patient understands and agrees with treatment plan. Questions answered Last Documented On 4 8:57AM ; [facility] SOAPP-R: total score 18 Last Documented On 4 8:57AM ; [facility] Surgical History Last Updated No Pacemaker 07/19/2023 Last Documented On 4 10:02AM ; [facility] Surgical / procedural history Yes 2023 Last Documented On 4 8:57AM ; [facility] History of tonsillectomy 12/08/2010 Last Documented On 4 8:57AM ; [facility] Medical History Includes: Medical History addressed during this encounter Description Last Updated No Pain Pump 07/19/2023 Last Documented On 4 10:02AM ; [facility] No Spinal cord stimulator 07/19/2023 Last Documented On 4 10:02AM ; [facility] No Ultrasound No 07/19/2023 Last Documented On 4 10:02AM ; [facility] CT/MRI Yes 05/17/2023 Last Documented On 4 8:57AM ; [facility] Deep muscle stimulation 05/17/2023 Last Documented On 4 8:57AM ; [facility] Injection/Nerve blocks 05/17/2023 Last Documented On 4 8:57AM ; [facility] Message/Acupressure 05/17/2023 Last Documented On 4 8:57AM ; [facility] Myelogram Yes 05/17/2023 Last Documented On 4 8:57AM ; [facility] NCV/EMG Yes 05/17/2023 Last Documented On 4 8:57AM ; [facility] Physical therapy 05/17/2023 Last Documented On 4 8:57AM ; [facility] Please list all illnesses/conditions you have been diagnosed with: Copd 05/17/2023 Last Documented On 4 8:57AM ; [facility] Please list all surgeries: Legs had fat removed 2013 05/17/2023 Last Documented On 4 8:57AM ; [facility] Severe Pain 05/17/2023 Last Documented On 4 8:57AM ; [facility] X-rays Yes 05/17/2023 Last Documented On 4 8:57AM ; [facility] TAKES CONCERTA 12/08/2010 Last Documented On 4 8:57AM ; [facility] Surgery 2009-CLOSED REDUCTION RT WRIST 0 12/08/2010 Last Documented On 4 8:57AM ; [facility] Family History Includes: Family History addressed during this encounter Description Last Updated Maternal history of Arthritis 07/19/2023 Last Documented On 4 10:02AM ; [facility] Maternal history of family history of is chemic heart disease 07/19/2023 Last Documented On 4 10:02AM ; [facility] Maternal history of reported family hist ory of seizures 07/19/2023 Last Documented On 4 10:02AM ; [facility] Review of Systems Includes: Review [...] Active Last Documented On 4 9:07AM ; [facility] Latex Allergy Skin Rashes / Eruption of skin 4 Active Last Documented On 4 9:07AM ; [facility] Encounters Encounter Provider Location Date Check-In Time Check-Out Time Diagnosis PAIN MANAGEMENT FOLLOW UP JEANNE SANTOS ANP-BC [facility] 07/19/19 24 8:55AM 9:42AM Lumbar Radiculopathy,Sp inal Stenosis Lumbar with Neurogenic Claudication,Spo ndylosis with Radiculopathy Lumbar Region Insurance Includes: Active Insurance Policies Plan Name Member ID Group # Subscriber Relationship Effect ganesh Dates 1 - [facility] [id number] [facility] Clinical Notes Includes: Clinical Notes from this encounter * Progress note Date Encounter Last Documented by 07/19/2023 PAIN MANAGEMENT FOLLOW UP Last d ocumented on 07/19/2023; 10:02 AM, JEANNE LEWIS-MARGARET; [facility] Chief Complaint The Chief Complaint [...] HAS BEEN ORDERED BY SOMEONE ELSE IN [place] . History of Present Illness - Allergy [...] 50% of this time spent in direct [id number] counseling and coordination of care. Results of [...] but may be subject to typographical or theatrical rigger errors. Verify all diagnoses, medications, dosages, and [...]
--- OUTSIDE RECORDS SUMMARY | 2024-07-10 21:34 | XMS_ITS | Clinical Summary ---
Author Organization [facility] Address [address] [place] [phone] Phone Care Team Providers Care Shoe Repairman Name Role Phone JEANNE MIN [phone] LUZ MARIA BOYLE MD Primary Care Provider [phone] Reason for Visit and Chief Complaint * [...] On 4 1:39PM By JEANNE KNOTT ; [facility] Diclofenac Sodium 75 MG Oral Tablet Delayed Release 06/14/2023 Provider: JEANNE WILKS Diagnosis: Radiculopathy, l umbar region 1 po bid prndo not take with other nsaids Last Documented On 4 1:39PM By JEANNE KNOTT ; [facility] Pregabalin 150 MG Oral Capsule 06/14/2023 Provider: JEANNE WILKS Diagnosis: Radiculopathy, l umbar region 1 CAPSULE TWO TIMES A DAY Last Documented On 4 1:39PM By JEANNE KNOTT ; [facility] Atorvastatin Calcium 20 MG Oral Tablet 05/17/2023 Pr ovider: Diagnosis: Last Documented On 4 10:36AM By Rona DRAPER ; [facility] Medications Administered Includes: Administered [...] Active Last Documented On 4 9:07AM ; [facility] Latex Allergy Skin Rashes / Eruption of skin 4 Active Last Documented On 4 9:07AM ; [facility] Encounters Encounter Provider Location Date Check-In Time Check-Out Time Diagnosis * PHONE CALL YADIRA IQBAL MD [facility] 4 9:02AM 11:59PM Insurance Includes: Active Insurance Policies Plan Name Member ID Group # Subscriber Relationship Effect ganesh Dates - [facility] [id number] OTIS Aishwarya SHRESTHA [facility] Clinical Notes Includes: Clinical Notes from this encounter No Clinical Notes Recorded
--- OUTSIDE RECORDS SUMMARY | 2024-07-10 21:34 | XMS_ITS | Clinical Summary ---
Author Organization [facility] Address [address] [place] [phone] Phone Care Team Providers Care Ethanol Maintenance Mechanic Name Role Phone TOM KNOTT, JEANNE Mondragon [phone] [place] ALBERTS, LUZ MARIA Neff Primary Care Provider [phone] Reason for Visit and Chief Complaint * PHONE CALL Plan of Treatment Pending Tests Order Diagnosis Results Due Ordering P rovider Radiology @ other - MRI MRI Lumbar w/o contrast Spinal stenosis, lumbar region with neurogenic claudication 07/08/23 JEANNE KNOTT Last Documented On 4 9:12AM ; [facility] Therapy - Physical Therapy Physical Therapy Spinal stenosis, lumbar region with neurogenic claudication 07/19/23 JEANNE KNOTT Last Documented On 4 9:11AM ; [facility] Assessments Includes: Assessments from this [...] 1:39PM By JEANNE KNOTT ; [facility] Diclofenac Sodium 75 MG Oral Tablet Delayed Release 06/14/2023 Provider: JEANNE WILKS Diagnosis: Radiculopathy, l umbar region 1 po bid prndo not take with other nsaids Last Documented On 4 1:39PM By JEANNE KNOTT ; [facility] Pregabalin 150 MG Oral Capsule 06/14/2023 Provider: JEANNE WILKS Diagnosis: Radiculopathy, l umbar region 1 CAPSULE TWO TIMES A DAY Last Documented On 4 1:39PM By JEANNE KNOTT ; [facility] Atorvastatin Calcium 20 MG Oral Tablet 05/17/2023 Pr ovider: Diagnosis: Last Documented On 4 10:36AM By Rona DRAPER ; [facility] Medications Administered Includes: Administered Medications [...] Active Last Documented On 4 9:07AM ; [facility] Latex Allergy Skin Rashes / Eruption of skin 4 Active Last Documented On 4 9:07AM ; [facility] Encounters Encounter Provider Location Date Check-In Time Check-Out Time Diagnosis * PHONE CALL JEANNE KNOTT 09/20/2023 10:30AM 11:59PM Insurance Includes: Active Insurance Policies Plan Name Member ID Group # Subscriber Relationship Effect ganesh Dates - [facility] [id number] OTIS Ruff Clinical Notes Includes: Clinical Notes from this encounter No Clinical Notes Recorded
--- OUTSIDE RECORDS SUMMARY | 2024-07-10 21:34 | XMS_ITS | Referral Summary ---
Author Organization [facility] Address [address] [place] [address] Care Team Providers Care Osteology Teacher Name Role Phone Tavares Sloan Primary Care Provider [phone] Source Comments [facility],non-owned Affiliates and Associated Physician Practices is amultiple site organization consisting of ambulatory clinics and hospital sitesin [place], [place], [place]. This disclosure is being madepursuant to the Care Everywhere program and may not contain all information available regarding this patient. Last updated 18.[facility] Encounters Date Type Department Care Team Description 07/08/2024 4:57 PM TINSMITH APPRENTICE - 07/08/2024 11:59 PM TINSMITH APPRENTICE Hospital Encounter [facility] MRI [address] [place] [address] Pardeep Lambert MD Discharge Disposition: Home or Self Care 07/03/2024 Travel 07/03/2024 1:45 PM TINSMITH APPRENTICE Office Visit [facility] - Neurosurgery [address] [place] [phone] Pardeep Lambert MD S/P lumbar microdiscectomy (Primary Dx); Lumbar radiculopathy 04/24/2024 Travel 04/24/2024 10:15 AM TINSMITH APPRENTICE Office Visit [facility] - Neurosurgery [address] [place] [address] Pardeep Lambert MD S/P lumbar microdiscectomy (Primary Dx) 04/14/2024 Orders Only [facility] PHYS NEUROSURGERY [address] [place] [address] Pat Gardner, VINITA-ELECTRONIC DEVELOPMENT TECHNICIAN from Last 3 Months Allergies Active Allergy [...] Base) MCG/ACT inhaler 04/16/2023 Active HYDROcodone-acetami nophen ([place]) 10-325 MG tablet 08/25/2023 Active albuterol-ipratropi um [...] Comments Blood Pressure 127/77 07/03/2024 1:20 PM TINSMITH APPRENTICE Pulse 92 07/03/2024 1:20 PM TINSMITH APPRENTICE Temperature 36.9 C (98.5 F) 04/24/2024 10:21 AM TINSMITH APPRENTICE Respiratory Rate 18 04/06/2024 12:48 PM TINSMITH APPRENTICE Oxygen Saturation 96% 07/03/2024 1:20 PM TINSMITH APPRENTICE Inhaled Oxygen Concentration - - Weight 142.9 kg (315 lb) 07/03/2024 1:20 PM TINSMITH APPRENTICE Height 172.7 cm (5' 8 ) 07/03/2024 1:20 PM TINSMITH APPRENTICE Body Mass Index 47.9 07/03/2024 1:20 PM TINSMITH APPRENTICE Plan of Treatment Not on file Procedures Procedure Name Priority Date/Time Associated Diagnosis Comments MRI LUMBAR SPINE WWO CONTRAST Routine 07/08/2024 5:17 PM TINSMITH APPRENTICE S/P lumbar microdiscectomy Lumbar radiculopathy from Last 3 Months Results * MRI Lumbar Spine Wwo Contrast (07/08/2024 5:17 PM TINSMITH APPRENTICE) Anatomical Region Laterality Modality Spine Magnetic Resonan [...] OF EXAM: 07/08/2024 5:21 PM, LOCATION [facility] INDICATION: Z98.890: S/P lumbar microdiscectomy M54.16: [...] OF EXAM: 07/08/2024 5:21 PM, LOCATION [facility] INDICATION: Z98.890: S/P lumbar microdiscectomy M54.16: [...] ORDERABLES from Last 3 Months Care Teams Osteology Teacher Relationship Specialty Start Date End Date Tavares Sloan PA [address] [place] [phone] PCP - General Physician Business Management Associate 06/06/24
--- OUTSIDE RECORDS SUMMARY | 2024-07-10 21:35 | XMS_ITS ---
Author Organization Unknown Address [address] [place] [phone] Phone Care Team Providers Care Elementary Special Education Teacher Name Role Phone FABIOCIPRIANO PAWEL Attending Unavailable [...] Jagjit Copeland M.D. RB: BRAD Report ID: [id number] Reading Location: [id number] PELVIS - Completed: 04/29/20 08:51 LOINC: EXAM [...] Jagjit Copeland M.D. RB: RB Report ID: [id number] Reading Location: [id number] Social History Type Status Start Date End Date Code Code Syst em Smoking History Current some day smoker [id number] SNOMED CT Sex Male Hospital Discharge Instructions [...]
--- OUTSIDE RECORDS SUMMARY | 2024-07-10 21:35 | XMS_ITS | Encounter Summary ---
Author Organization [facility] Address [address] [place] [address] Care Team Providers Care Electric Furnace Operator Name Role Phone None, Provider Primary Care Provider Leighton Hawthorne MD Primary Care Provider None, Provider Primary Care Provider Tavares Khan Primary Care Provider [phone] Encounter Details Date Type Department Care Team (Late st Contact Info) Description 10/08/2018 Abstract [facility]FL CONVERSION [address] [place] [address] , Generic Conversion, Social History Tobacco Use Types Packs/Day Years Used Date Smoking Tobacco: Never Assessed Sex and Gender Information Value Date Recorded Sex Assigned at Not on file Legal Sex Male 10:53 PM [employer] Gender Identity Not on file Sexual Orientation Not on file documented as of this encounter Plan of Treatment Not on file documented as of this encounter Visit Diagnoses Not on filedocumented in this encounter Additional Health Concerns Infection Onset Date Last Indicated Resolved Time COVID-19 Rule Out 05/07/2020 05/07/2020 05/07/2020 11:29 AM [employer]PORATION PILOT COVID-19 Rule Out 04/22/2021 04/22/2021 04/22/2021 9:58 PM [employer]ATION [employer] COVID-19 Confirmed 04/22/2021 04/22/2021 12:34 AM [employer]PORATION PILOT COVID-19 Rule Out 08/13/2022 08/13/2022 08/13/2022 11:19 AM CDT COVID-19 Rule Out 08/13/2022 08/13/2022 08/14/2022 7:33 PM CDT documented as of this encounter Care Teams Electric Furnace Operator Relationship Specialty Start Date End Date None, Provider, PCP - General 11/07/18 05/28/19 Leighton Burciaga MD [address] [place] [phone] PCP - General FAMILY PRACTICE 05/29/19 10/26/20 None, Provider, PCP - General 10/27/20 03/20/23 Tavares Sloan PA [address] [place] [phone] PCP - General PHYSICIAN COOLER SERVICER 03/21/23 documented as of this encounter
--- OUTSIDE RECORDS SUMMARY | 2024-07-10 21:35 | XMS_ITS | Clinical Summary ---
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
--- OUTSIDE RECORDS SUMMARY | 2024-07-10 21:35 | XMS_ITS ---
Author Organization [facility] Address [address] [place] [phone] Phone Care Team Providers Care Floral Designer Name Role Phone TOM KNOTT, JEANNE L Unavailable [phone] [place] ALBERTS, LUZ MARIA Neff Primary Care Provider [phone] Plan of Treatment Findings Encounter Date Ordered follow-up visit next month MED CHECK wit h DEE DEE ESPINAL M.D. 08/11/2011 Last Documented On 2 11:28AM ; [facility] Ordered follow-up visit in 2 months ADHD CK-UP w [facility] DEE DEE ESPINAL M.D. 07/16/2011 Last Documented On 2 4:01PM ; [facility] Ordered follow-up visit next month ADHD CK-UP wi DEE DEE ESPINAL M.D. 06/04/2011 Last Documented On 2 2:33PM ; [facility] Ordered follow-up visit NOTE : above rx are errors correct dose Ritalin sr 20 mg 3 60 . 2 bid MED CHECK with DEE DEE ESPINAL M.D. 04/20/2011 Last Documented On 1 11:01AM ; [facility] Ordered follow-up visit next month NOTE: apparently metadate cd not covered by medical card. will change it to methylin er 20 mg od ADHD CK-UP with DEE DEE ESPINAL M.D. 02/27/2011 Last Documented On 1 3:43PM ; [facility] Ordered follow-up visit next month ADHD CK-UP wi DEE DEE ESPINAL M.D. 02/09/2011 Last Documented On 1 10:58AM ; [facility] clearance to go back to [...] 12/29/2010 Last Documented On 1 8:00PM ; [facility] Ordered follow-up visit next week, patient has adhd on concerta, will deaL WITH HIS CHRONIC PROBLEM NEXT visit NEW PATIENT VISIT with DEE DEE ESPINAL M.D. 12/08/2010 Last Documented On 1 2:35PM ; [facility] Pending Tests Order Diagnosis Results Due Ordering Sampson luna Radiology @ other - MRI MRI Lumbar w/o contrast Spinal stenosis, lumbar region with neurogenic claudication 07/08/23 JEANNE SANTOS [facility]- Last Documented On 4 9:12AM ; [facility] Therapy - Physical Therapy Physical Therapy Spinal stenosis, lumbar region with neurogenic claudication 07/19/23 JEANNE SANTOS ANP- Last Documented On 4 9:11AM ; [facility] Instructions to patient Maintain a healthy diet Last Documented On 1 4:06PM ; [facility] No Special Instructions or D evices Last Documented On 1 4:06PM ; [facility] Education and Decision Aids were provided during visit for: Anticipatory guidance: limit computer and video time Last Documented On 1 4:07PM ; [facility] Discussed safety practices Last Documented On 1 4:06PM ; [facility] Discussed use of seat belts Last Documented On 1 4:07PM ; [facility] Discussed 'child-proofing' t he house advised to remove guns from home or keep unloaded and locked away Last Documented On 1 4:07PM ; [facility] Discussed bicycle safety Last Documented On 1 4:07PM ; [facility] Discussed sports safety Last Documented On 1 4:07PM ; [facility] Discussed nutritional needs Last Documented On 1 4:06PM ; [facility] Discussed education and care er Last Documented On 1 4:06PM ; [facility] Discussed activities Last Documented On 1 4:06PM ; [facility] Discussed activities supervi se activities with peers Last Documented On 1 4:07PM ; [facility] Discussed concerns Last Documented On 1 4:06PM ; [facility] Discussed concerns about exe rcise : promote physical activity Last Documented On 1 4:07PM ; [facility] Discussed concerns about dis cipline reinforce limits, family rules, homework and chores Last Documented On 1 4:07PM ; [facility] Discussed concerns about tel evision : limit time spent watching Last Documented On 1 4:07PM ; [facility] Discussed concerns about sex ual activity Last Documented On 1 4:07PM ; [facility] Discussed concerns about uns afe sexual practices Last Documented On 1 4:07PM ; [facility] Discussed concerns about tob acco use newspaper delivery counselor to avoid~ Last Documented On 1 4:07PM ; [facility] Discussed concerns about alc ohol use newspaper delivery counselor to avoid Last Documented On 1 4:07PM ; [facility] Discussed concerns about ill icit drug use newspaper delivery counselor to avoid Last Documented On 1 4:07PM ; [facility] Assessments Includes: Assessments for all patient encounters Findings Encounter Date Lumbar radiculopathy PAIN MANAGEMENT FOL LOW UP with JEANNE SANTOS ANP-BC 07/19/2023 Last Documented On 4 10:02AM ; [facility] Lumbar spondylosis with radiculopathy PA IN MANAGEMENT FOLLOW UP with JEANNEKIKA DRIVERS ANP-BC 07/19/2023 Last Documented On 4 10:02AM ; [facility] Lumbar stenosis with neuroge milo claudication PAIN MANAGEMENT FOLLOW UP with JEANNE L TOM ANP-BC 07/19/2023 Last Documented On 4 10:02AM ; [facility] Lumbar radiculopathy TELEHEALTH with JEANNE Sandrine ANDREA MORALES ANP-BC 06/14/2023 Last Documented On 4 1:37PM ; [facility] Lumbar spondylosis with radiculopathy TE LEHEALTH with JEANNE L TOM ANP-BC 06/14/2023 Last Documented On 4 1:37PM ; [facility] Lumbar stenosis with neuroge milo claudication TELEHEALTH with JEANNE L TOM ANP-BC 06/14/2023 Last Documented On 4 1:37PM ; [facility] Lumbar radiculopathy PAIN MANAGEMENT NEW CONSULT with JEANNE L TOM ANP-BC 05/17/2023 Last Documented On 4 12:41PM ; [facility] Lumbar spondylosis with radiculopathy PA IN MANAGEMENT NEW CONSULT with JEANNE L TOM ANP-BC 05/17/2023 Last Documented On 4 12:41PM ; [facility] Lumbar stenosis with neuroge milo claudication PAIN MANAGEMENT NEW CONSULT with JEANNE L TOM ANP-BC 05/17/2023 Last Documented On 4 12:41PM ; [facility] ADHD, predominantly inattentive type MED CHECK w ith DEE DEE ESPINAL M.D. 08/11/2011 Last Documented On 2 11:28AM ; [facility] Attention-deficit hyperactivity disorder MED CHECK with DEE DEE ESPINAL M.D. 08/11/2011 Last Documented On 2 11:28AM ; [facility] ADHD, predominantly inattentive type ADHD CK-UP with DEE DEE ESPINAL M.D. 07/16/2011 Last Documented On 2 4:01PM ; [facility] Attention-deficit hyperactivity disorder ADHD CK-UP with DEE DEE ESPINAL M.D. 07/16/2011 Last Documented On 2 4:01PM ; [facility] ADHD, predominantly inattentive type ADHD CK-UP with DEE DEE ESPINAL M.D. 06/04/2011 Last Documented On 2 2:33PM ; [facility] Attention-deficit hyperactivity disorder ADHD CK-UP with DEE DEE Neff.Meredith 06/04/2011 Last Documented On 2 2:33PM ; [facility] ADHD, predominantly inattentive type MED CHECK w ith DEE DEE Neff.Meredith 04/20/2011 Last Documented On 1 11:01AM ; [facility] Attention-deficit hyperactivity disorder MED CHECK with DEE DEE Neff.Meredith 04/20/2011 Last Documented On 1 11:01AM ; [facility] ADHD, predominantly inattentive type ADHD CK-UP with DEE DEE Neff.Meredith 02/27/2011 Last Documented On 1 3:43PM ; [facility] Attention-deficit hyperactivity disorder ADHD CK-UP with DEE DEEMODESTO Neff.Meredith 02/27/2011 Last Documented On 1 3:43PM ; [facility] ADHD, predominantly inattentive type ADHD CK-UP with DEE DEE Neff.Meredith 02/09/2011 Last Documented On 1 10:58AM ; [facility] Attention-deficit hyperactivity disorder ADHD CK-UP with DEE DEE Neff.Meredith 02/09/2011 Last Documented On 1 10:58AM ; [facility] Ankle sprain left, resolved RECHECK with DEE DEE Neff.Meredith 12/29/2010 Last Documented On 1 8:00PM ; [facility] Attention-deficit hyperactivity disorder RECHECK with DEE DEE Neff.Meredith 12/29/2010 Last Documented On 1 8:00PM ; [facility] Obesity RECHECK with DEE DEE Neff.Meredith 12/29/2010 Last Documented On 1 8:00PM ; [facility] Sprain left foot HOSPITAL FOLLOW UP EXAM with LEDA ESPINAL M.D. 12/22/2010 Last Documented On 1 4:41PM ; [facility] Patient is approved for part icipation in School, Physical Education, and Sports for 1 year NEW PATIENT VISIT with DEE DEE ESPINAL M.D. 12/08/2010 Last Documented On 1 2:35PM ; [facility] Normal routine history and p hysical adolescent (12 - 18) NEW PATIENT VISIT with DEE DEE ESPINAL M.D. 12/08/2010 Last Documented On 1 2:35PM ; [facility] SCHOOL/SPORT PHYSICAL NEW PATIENT VISIT with LELAND ESPINAL M.D. 12/08/2010 Last Documented On 1 2:35PM ; [facility] Instructions Includes: Instructions for all patient encounters Instructions to patient Maintain a healthy diet Last Documented On 1 4:06PM ; [facility] No Special Instructions or D evices Last Documented On 1 4:06PM ; [facility] Education and Decision Aids were provided during visit for: Anticipatory guidance: limit computer and video time Last Documented On 1 4:07PM ; [facility] Discussed safety practices Last Documented On 1 4:06PM ; [facility] Discussed use of seat belts Last Documented On 1 4:07PM ; [facility] Discussed 'child-proofing' t he house advised to remove guns from home or keep unloaded and locked away Last Documented On 1 4:07PM ; [facility] Discussed bicycle safety Last Documented On 1 4:07PM ; [facility] Discussed sports safety Last Documented On 1 4:07PM ; [facility] Discussed nutritional needs Last Documented On 1 4:06PM ; [facility] Discussed education and care er Last Documented On 1 4:06PM ; [facility] Discussed activities Last Documented On 1 4:06PM ; [facility] Discussed activities supervi se activities with peers Last Documented On 1 4:07PM ; [facility] Discussed concerns Last Documented On 1 4:06PM ; [facility] Discussed concerns about exe rcise : promote physical activity Last Documented On 1 4:07PM ; [facility] Discussed concerns about dis cipline reinforce limits, family rules, homework and chores Last Documented On 1 4:07PM ; [facility] Discussed concerns about tel evision : limit time spent watching Last Documented On 1 4:07PM ; [facility] Discussed concerns about sex ual activity Last Documented On 1 4:07PM ; [facility] Discussed concerns about uns afe sexual practices Last Documented On 1 4:07PM ; [facility] Discussed concerns about tob acco use newspaper delivery counselor to avoid~ Last Documented On 1 4:07PM ; [facility] Discussed concerns about alc ohol use newspaper delivery counselor to avoid Last Documented On 1 4:07PM ; [facility] Discussed concerns about ill icit drug use newspaper delivery counselor to avoid Last Documented On 1 4:07PM ; [facility] Medical Equipment - Implanted Devices Includes: Current and historical Devices No Medical Equipment Recorded Medications Includes: Current and historical Medications Current Medications (continue as prescribed) Cyclobenzaprine HCl 10 MG Oral Tablet 06/14/2023 Provider: JEANNE KNOTT Diagnosis: Spinal stenosis, lumbar region with neurogenic claudication 1/2 t o1 po bid prn Last Documented On 4 1:39PM By JEANNE KNOTT ; [facility] Diclofenac Sodium 75 MG Oral Tablet Delayed Release 06/14/2023 Provider: JAENNE WILKS Diagnosis: Radiculopathy, l umbar region 1 po bid prndo not take with other nsaids Last Documented On 4 1:39PM By JEANNE KNOTT ; [facility] Pregabalin 150 MG Oral Capsule 06/14/2023 Provider: JEANNE WILKS Diagnosis: Radiculopathy, l umbar region 1 CAPSULE TWO TIMES A DAY Last Documented On 4 1:39PM By JEANNE KNOTT ; [facility] Atorvastatin Calcium 20 MG Oral Tablet 05/17/2023 Pr ovider: Diagnosis: Last Documented On 4 10:36AM By Rona DRAPER ; [facility] Past Medications on file Gabapentin 600 MG Oral Tablet 05/17/2023 - 07/19/2023 Provider: JEANNE KNOTT Diagnosis: Spinal stenosis, lumbar region with neurogenic claudication One tablet three times a day Last Documented On 07/19/2023 9:08AM By Rona DRAPER ; [facility] Cyclobenzaprine HCl 5 MG Oral Tablet 05/17/2023 - 06/03 Provider: Diagnosis: Last Documented On 4 1:36PM [facility] ; [facility] Meloxicam 7.5 MG Oral Tablet 05/17/2023 - 06/14/2023 P ninader: Diagnosis: Last Documented On 4 1:37PM By [facility] ; [facility] Ritalin SR 20 MG OR TBCR 08/11/2011 - 09/10/2011 Provider: DEE DEE Huang Diagnosis: ATTN DEFIC NONHY PERACT 2 tabs od Last Documented On 08/11/2011 10:22AM By DEE DEE ESPINAL MD ; [facility] Ritalin SR 20 MG OR TBCR 07/16/2011 - 08/11/2011 Provider: DEE DEE Huang Diagnosis: ATTN DEFIC NONHY PERACT 2 tabs od Last Documented On 08/11/2011 10:22AM By DEE DEE ESPINAL MD ; [facility] Ritalin SR 20 MG OR TBCR 06/04/2011 - 07/16/2011 Provider: DEE DEE Huang Diagnosis: ATTN DEFIC NONHY PERACT 2 tabs od Last Documented On 07/16/2011 4:00PM By DEE DEE ESPINAL MD ; [facility] Ritalin SR 20 MG OR TBCR 04/20/2011 - 06/04/2011 Provider: DEE DEE Huang Diagnosis: ATTN DEFIC NONHY PERACT 2 tabs od Last Documented On 06/04/2011 1:44PM By DEE DEE ESPINAL MD ; [facility] Ritalin SR 10 MG OR TABS 04/20/2011 - 05/20/2011 Provider: DEE DEE Huang Diagnosis: ATTN DEFIC NONHY PERACT 2 tabs Last Documented On 04/20/2011 3:26PM By DEE DEE ESPINAL MD ; [facility] Ritalin SR 20 MG OR TBCR 04/20/2011 - 05/04/2011 Provi sandeep: DEE DEE ESPINAL M.D. Diagnosis: Last Documented On 04/20/2011 3:15PM By DEE DEE ESPINAL MD ; [facility] Ritalin SR 20 MG OR TBCR 04/03/2011 - 04/20/2011 Provi sandeep: Diagnosis: Last Documented On 04/20/2011 3:15PM By DEE DEE ESPINAL MD ; [facility] Metadate CD 30 MG OR CPCR 02/27/2011 - 04/20/2011 Provider: DEE DEE Huang Diagnosis: ATTN DEFICIT W HYPERACT Last Documented On 04/20/2011 3:09PM By MELBA TYSON MA ; [facility] Concerta 54 MG OR TBCR 02/09/2011 - 04/03/2011 Provide r: Diagnosis: Last Documented On 04/03/2011 2:25PM By MELBA TYSON MA ; [facility] Medications Administered Includes: Administered Medications in [...] 97 Last Documented: On 07/19/2023 9:05AM ; [facility] Results Includes: Results from 07/11/2023 through 07/10/2024 No Results Recorded For Specified Dates History of Present Illness History of Present Illness not supported for this document type No History of Present Illness Recorded Social History Description Last Updated Not using drugs 07/19/2023 Last Documented On 4 10:02AM ; [facility] Current smoker 06/14/2023 Last Documented On 4 1:37PM ; [facility] Alcohol 05/17/2023 Last Documented On 4 12:41PM ; [facility] Amount of alcohol per day: 0 05/17/2023 Last Documented On 4 12:41PM ; [facility] Difficulty walking 05/17/2023 Last Documented On 4 12:41PM ; [facility] Smoking packs of cigarettes per day 2 Last Documented On 4 12:41PM ; [facility] Nutritional quality of diet 12/08/2010 Last Documented On 1 2:35PM ; [facility] Nutritious and satisfying diet 1 Last Documented On 1 2:35PM ; [facility] The racial background was unknown ethnic minority 12/08/2010 Last Documented On 1 2:35PM ; [facility] No tobacco use 12/08/2010 Last Documented On 1 2:35PM ; [facility] Not using alcohol 12/08/2010 Last Documented On 1 2:35PM ; [facility] Occupation STUDENT 12/08/2010 Last Documented On 1 3:10PM ; [facility] Single 12/08/2010 Last Documented On 1 3:10PM ; [facility] Smoking Status Unknown Procedures and Surgical History Includes: Procedures from 07/11/2023 through 07/10/2024 Procedures Code Diagnosis Performing Provider Service Location Service Date CLINIC VISIT [id number] Spinal stenosis, lumbar region with neurogenic claudication, Other spondylosis with radiculopathy, lumbar region, Radiculopathy, lumbar region JAENNE SANTOS ANP-[facility] 07/19/2023 Last Documented On 4 3:05PM ; [facility] Surgical History Last Updated No Pacemaker 07/19/2023 Last Documented On 4 10:02AM ; [facility] Surgical / procedural history Yes 2023 Last Documented On 4 12:41PM ; [facility] History of tonsillectomy 12/08/2010 Last Documented On 1 3:10PM ; [facility] Medical History Includes: Medical History in patient's chart Description Last Updated No Pain Pump 07/19/2023 Last Documented On 4 10:02AM ; [facility] No Spinal cord stimulator 07/19/2023 Last Documented On 4 10:02AM ; [facility] No Ultrasound No 07/19/2023 Last Documented On 4 10:02AM ; [facility] CT/MRI Yes 05/17/2023 Last Documented On 4 12:41PM ; [facility] Deep muscle stimulation 05/17/2023 Last Documented On 4 12:41PM ; [facility] Injection/Nerve blocks 05/17/2023 Last Documented On 4 12:41PM ; [facility] Message/Acupressure 05/17/2023 Last Documented On 4 12:41PM ; [facility] Myelogram Yes 05/17/2023 Last Documented On 4 12:41PM ; [facility] NCV/EMG Yes 05/17/2023 Last Documented On 4 12:41PM ; [facility] Physical therapy 05/17/2023 Last Documented On 4 12:41PM ; [facility] Please list all illnesses/conditions you have been diagnosed with: Copd 05/17/2023 Last Documented On 4 12:41PM ; [facility] Please list all surgeries: Legs had fat removed 201205/17/2023 Last Documented On 4 12:41PM ; [facility] Severe Pain 05/17/2023 Last Documented On 4 12:41PM ; [facility] X-rays Yes 05/17/2023 Last Documented On 4 12:41PM ; [facility] No other medical history reported Signs of Insulin Resistance 12/08/2010 Last Documented On 1 2:35PM ; [facility] A PPD was negative 12/08/2010 Last Documented On 1 2:35PM ; [facility] Blood pressure was not high 12/08/2010 Last Documented On 1 2:35PM ; [facility] No cardiac problems 12/08/2010 Last Documented On 1 2:35PM ; [facility] No exposure to tuberculosis 12/08/2010 Last Documented On 1 2:35PM ; [facility] No hearing problems 12/08/2010 Last Documented On 1 2:35PM ; [facility] No heart murmur 12/08/2010 Last Documented On 1 2:35PM ; [facility] No history of asthma 12/08/2010 Last Documented On 1 2:35PM ; [facility] No history of concussion 12/08/2010 Last Documented On 1 2:35PM ; [facility] No history of delayed milestones 011 Last Documented On 1 2:35PM ; [facility] No history of diabetes mellitus 12/09/19 11 Last Documented On 1 2:35PM ; [facility] No history of hematologic disorder 12/08 Last Documented On 1 2:35PM ; [facility] No history of sickle cell abnormality Last Documented On 1 2:35PM ; [facility] No loss of function of one of paired org ans 12/08/2010 Last Documented On 1 2:35PM ; [facility] No orthopedic problems 12/08/2010 Last Documented On 1 2:35PM ; [facility] No previous hospitalizations 12/08/2010 Last Documented On 1 2:35PM ; [facility] No recent examination by an ophthalmolog ist 12/08/2010 Last Documented On 1 2:35PM ; [facility] No recent severe illness or injury 12/08 Last Documented On 1 2:35PM ; [facility] No Surgery 12/08/2010 Last Documented On 1 2:35PM ; [facility] No trauma to the head 12/08/2010 Last Documented On 1 2:35PM ; [facility] Not born with congenital abnormalities 0 12/08/2010 Last Documented On 1 2:35PM ; [facility] Not carrying hemophilia A 12/08/2010 Last Documented On 1 2:35PM ; [facility] TAKES CONCERTA 12/08/2010 Last Documented On 1 3:10PM ; [facility] Surgery 2009-CLOSED REDUCTION RT WRIST 0 12/08/2010 Last Documented On 1 3:10PM ; [facility] Family History Includes: Family History in patient's chart Description Last Updated Maternal history of Arthritis 07/19/2023 Last Documented On 4 10:02AM ; [facility] Maternal history of family history of is chemic heart disease 07/19/2023 Last Documented On 4 10:02AM ; [facility] Maternal history of reported family hist ory of seizures 07/19/2023 Last Documented On 4 10:02AM ; [facility] No family history of diabetes mellitus 0 12/08/2010 Last Documented On 1 2:35PM ; [facility] No sudden early deaths 12/08/2010 Last Documented On 1 2:35PM ; [facility] Review of Systems Review of Systems [...] Active Last Documented On 4 9:07AM ; [facility] Latex Allergy Skin Rashes / Eruption of skin 4 Active Last Documented On 4 9:07AM ; [facility] Encounters Includes: Encounters from 07/11/2023 through 07/10/2024 Encounter Provider Location Date Check-In Time Check-Out Time Diagnosis * PHONE CALL YADIRA IQBAL MD [facility] 01/20/20 24 07/19/2023 9:02AM 07/19/2023 11:59PM * [facility] 07/19/2023 10:30AM 07/19/2023 11:59PM [facility] 24 07/19/2023 1:12PM 07/19/2023 11:59PM * [facility] 24 07/19/2023 11:55AM 07/19/2023 11:59PM PAIN MANAGEMENT FOLLOW UP JEANNE KNOTT [facility] 07/19/19 8:55AM 9:42AM Lumbar Radiculopathy,Sp inal Stenosis Lumbar with Neurogenic Claudication,Spo ndylosis with Radiculopathy Lumbar Region Insurance Includes: Active Insurance Policies Plan Name Member ID Group # Subscriber Relationship Effect ganesh Dates 1 - [facility] [id number] OTIS SHRESTHA Self Clinical Notes Includes: Signed Clinical Notes starting from 05/22/2022 * Progress note Date Encounter Last Documented by 07/20/2023 * PHONE CALL Last documented on 07/20/2023; 12:26 PM, JEANNE KNOTT; [facility] Chief Complaint Phone Call - Chief Concern: reason for call:pt called with pill count #3 cyclobenzaprine #43 diclofenac #34 pregabalin pt phone # for return call:[phone] date/initials:07/20/23, kms. Past Medical/Surgical History Reported: Surgery [...] ocumented on 07/19/2023; 10:02 AM, JEANNE LEWIS-BC; [facility] Chief Complaint The Chief Complaint [...] HAS BEEN ORDERED BY SOMEONE ELSE IN [place] . History of Present Illness - Allergy [...] 50% of this time spent in direct tpig-cw-eber counseling and coordination of care. Results of [...] but may be subject to typographical or sales review clerk errors. Verify all diagnoses, medications, dosages, and [...]
--- NOTE | 2024-07-10 21:43 | PC.NURSE ---
pt given urinal for urine specimen
[2024-07-10] MEDS: KETOROLAC (*BKC) 60 MG/2 ML VIAL IM (21:46)
[2024-07-10 21:48] LABS: Strep Group A RT-PCR NOT DETECTED (Negative)
[2024-07-10 21:57] LABS: Hematocrit 47.7 % (40.0-54.0); Hemoglobin 15.7 g/dL (14.0-18.0); Mean Corpuscular HGB Conc 32.9 g/dL (32-36); Mean Corpuscular Hemoglobin 29.5 pg (27.0-31.0); Mean Corpuscular Volume 89.5 fL (78.0-102.0); Mean Platelet Volume 11.6 fl (8.7-11.0); Platelet Count Result 113 K/mm3 (150-420); Red Blood Count 5.33 M/mm3 (4.70-6.10); Red Cell Distribution Width 13.4 % (11.6-14.4); White Blood Count 12.5 K/mm3 (4.8-10.8)
[2024-07-10 21:58] LABS: Add Urine Microscopic? NO; Appearance Urine Clear (Clear); Bilirubin Urine Negative (Negative); Blood Urine Negative (Negative); Color Urine Light Yellow (Yellow); Glucose Urine UA Negative (Negative); Ketones Urine Negative (Negative); Leukocyte Esterase Ur Negative (Negative); Nitrate Urine Negative (Negative); Protein Urine Negative (Negative); Specific Grav Ur 1.025 (1.010-1.020); Urobilinogen Urine 0.2 mg/dL (0.2-1.0); pH Urine 5.5 (5.0-8.0)
[2024-07-10 22:00] LABS: Influenza A QL RT-PCR Negative (Negative); Influenza B QL RT-PCR Negative (Negative); RSV RNA, RT-PCR Negative (Negative); SARS-CoV-2 RNA PCR Negative (Negative)
[2024-07-10 22:05] LABS: Amphetamine Screen Urine Negative (Negative); Barbiturate Screen Urine Negative (Negative); Benzodiazepines Screen Urine Negative (Negative); Cannabinoid Screen Urine Positive (Negative); Cocaine Screen Urine Negative (Negative); Methadone Screen Urine Negative (Negative); Opiate Screen Urine Negative (Negative); Phencyclidine Screen Urine Negative (Negative)
[2024-07-10 22:11] LABS: Alanine Aminotransferase 49 U/L (16-63); Albumin Level 3.8 g/dL (3.4-5.0); Alkaline Phosphatase 100 U/L (46-116); Anion Gap 8 mmol/L (4-12); Aspartate Amino Transferase 18 U/L (15-37); Bilirubin,Total 0.3 mg/dL (0.00-1.00); Blood Urea Nitrogen 14 mg/dL (7-18); CRP 0.7 mg/dL (0.0-0.9); Calcium 9.5 mg/dL (8.5-10.1); Carbon Dioxide 28 mmol/L (21-32); Chloride 104 mmol/L (98-108); Estimated CRCL calculation 112 ml/min; Estimated Glomerular Filt Rate > 60; Glucose 105 mg/dL (70-99); Osmolality Calculated 290 mOsm/kg (285-295); Sodium 140 mmol/L (136-145)
[2024-07-10 22:17] LABS: Band Neutrophils Percent 0 % (0-6); Lymphocytes Absolute Manual 3.37 K/mm3 (1.1-4.5); Lymphocytes Percent Manual 27 % (18-44); Neutrophils Percent Manual 60 % (46-73)
[2024-07-10 22:18] LABS: Basophils Absolute Manual 0.12 K/mm3 (0-0.1); Basophils Percent Manual 1 % (0-1); Eosinophils Absolute Manual 0.37 K/mm3 (0.02-0.50); Eosinophils Percent Manual 3 % (1-6); Monocytes Absolute Manual 1.12 K/mm3 (0.1-0.90); Monocytes Percent Manual 9 % (3-9); Platelet Estimate Adequate (Adequate)
[2024-07-10 23:14] LABS: Erythrocyte Sedimentation Rate 22 mm/hr (0-15)
[2024-07-10 23:15] VITALS: BP 138/75; PULSE 87; RESP 18; TEMP 36.6; O2SAT 97
--- NOTE | 2024-07-10 23:15 | PC.NURSE ---
Pt walked to desk and wanted to sign to leave, pt not wanting to wait for test results or CXR results. Pt signed AMA and stated he will see his FMD in morning.
== END 2024-07-10 23:15 | disposition left against medical advice (07) ==
PROVIDERS: Emergency Provider Emergency Medicine; PCP Physician Assistant
DX: R51.9 Headache, unspecified (principal); M54.9 Dorsalgia, unspecified; R07.9 Chest pain, unspecified; R10.9 Unspecified abdominal pain; J44.9 Chronic obstructive pulmonary disease, unspecified; F17.210 Nicotine dependence, cigarettes, uncomplicated; Z79.899 Other long term (current) drug therapy; Z20.822 Contact with and (suspected) exposure to COVID-19
CPT/HCPCS: 36415; 71046; 80053; 80307; 81003; 85025; 85652; 86140; 87637; 87651; 96372; 99283; J1885

== ENCOUNTER 2024-10-08 17:08 | Emergency (ER) | payer OTHER, SELFPAY ==
[2024-10-08] VITALS (11 sets, daily range): BP systolic 134–144; BP diastolic 61–92; PULSE 74–96; RESP 11–20; TEMP 37.2–37.4; O2SAT 93–100
--- NOTE | ~2024-10-08 | XR_ITS ---
EXAMINATION: XR chest 1V portable Exam Date/Time: 10/08/2024 17:25 CDT HISTORY: Chest pain x1 day Comparison: 07/10/2024. RESULT: Lines, tubes, and devices: None. Lungs and pleura: Clear. Cardiomediastinal silhouette: Stable. Other: No acute osseous or upper abdominal finding. IMPRESSION: No acute cardiopulmonary process. Reviewed, dictated and finalized at location K.
--- NOTE | 2024-10-08 17:09 | ECG_ITS ---
Test Date: 2024-10-08 17:18:29 Measurements Intervals Ecru Rate: 98 P: 46 DC: 142 QRS: 51 QRSD: 104 T: 18 QT: 338 QTc: 433 Interpretive Statements SINUS RHYTHM POSSIBLE LEFT ATRIAL ENLARGEMENT BASELINE WANDER- I, II NORMAL ECG Compared to ECG 01/19/2024 10:06:48 No significant changes Electronically Signed On 10-08-2024 20:49:36 CDT by Kendrick Rebolledo D.O.
--- OUTSIDE RECORDS SUMMARY | 2024-10-08 17:10 | XMS_ITS | Clinical Summary ---
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 [employer] Gender Identity Not on file Sexual Orientation Not on file Plan of Treatment Health Maintenance Due Date Last Done Comments Hepatitis C Virus (HCV) Screening 1994 Hepatitis B Immunization (1 of 3 - 19+ 3-dose series) 2013 SARS-COV-2 Immunization ( season) 2024 Influenza Immunization (Seas on Ended) 2025 Respiratory Syncytial Virus (RSV) Immunization (Adult) (1 - 1-dose 75+ series) 2069 DTaP/Tdap/Td Immunization Discontinued 03/19/2023 TdaP Immunization Completed 03/19/2023 Human Papillomavirus (HPV) Immunization Aged Out No longer eligible b ased on patient's age to complete this topic Meningococcal Immunization (ACWY) Aged Out No longer eligible based on patient's age to complete this topic Pneumococcal Immunization Combined Aged Out No longer eligible based on patient's age to complete this topic Rotavirus Immunization Aged Out No lo nger eligible based on patient's age to complete this topic Insurance MEDICAID [employer] Care Teams Bag Shaker Relationship Specialty Start Date End Date Tavares Sloan PAC [address] [place] [address] PCP - General Physician Plant Associate 06/15/23
--- OUTSIDE RECORDS SUMMARY | 2024-10-08 17:10 | XMS_ITS | Patient Health Record ---
Author Organization [facility] Address [address] [place] [address] Care Team Providers Care Refining Engineer Name Role Phone Carolin Heck Primary Care [...] Problem Status W/U Status Risk Notes Problem [id number] Anxiety (F41.9) Active confirmed Problem Obesity (BMI 30-39.9) (E66.9) Active confirmed Problem Tobacco dependence (40329984) Tobacco dependence (F17.200) Active confirmed Problem 961677689 Tobacco abuse (Z72.0) Active confirmed Problem 51457257 Chronic obstructive pulmonary disease, unspecified COPD type (J44.9) Active confirmed Problem 166614321 Insomnia, unspecified type (G47.00) Active confirmed Plan Of Treatment No Information Insurance Providers Payer Name Payer Address Payer Phone Subscriber Number Group Number Insured Name Patient Relationship to Insured Coverage Start Date Coverage End Date [facility] [address] [place] [address] [id number] Jayme Rodríguez Self - patient is the insured Medical (General) History Medical History History ICD Code Foot pain Shortness of breath Fatigue COPD exacerbation Anxiety Insomnia Depression History of suicidal ideation Surgical History Surgery Date(Month/Year) Tonsillectomy Hospitalization History Reason Date(Month/Year) [facility]- Suicidal ideation 09/21/20 [facility]- Spider bite 10/28/20 [facility]- Foot pain, fatigue, shortness of breath 12/03/20
--- OUTSIDE RECORDS SUMMARY | 2024-10-08 17:10 | XMS_ITS ---
Author Organization Unknown Address [address] [place] [phone] Phone Care Team Providers Care Slice Cutting Machine Operator Helper Name Role Phone FABIOCIPRIANO PAWEL Attending Unavailable [...] Jagjit Copeland M.D. RB: BRAD Report ID: [id number] Reading Location: [id number] PELVIS - Completed: 04/29/20 08:51 LOINC: EXAM [...] Jagjit Copeland M.D. RB: RB Report ID: [id number] Reading Location: [id number] Social History Type Status Start Date End Date Code Code Syst em Smoking History Current some day smoker [id number] SNOMED CT Sex Male Hospital Discharge Instructions [...]
--- OUTSIDE RECORDS SUMMARY | 2024-10-08 17:10 | XMS_ITS | Clinical Summary ---
Author Organization [facility] Address [address] [place] [address] Care Team Providers Care In Mold Coater Name Role Phone Tavares Sloan Primary Care Provider [phone] Source Comments [facility],non-owned Affiliates and Associated Physician Practices is amultiple site organization consisting of ambulatory clinics and hospital sitesin [place], [place], [place] and [place]. This disclosure is being madepursuant to the Care Everywhere program and may not contain all information available regarding this patient. Last updated 18.[facility] Allergies Active Allergy Reactions Criticality Noted Date Comments Latex Rash Medium 05/17/2023 Penicillins Rash,Anaphylaxis High 05/17/2023 Medications * This document contains information received from the source organization and may not represent a complete record from that organization. * Be aware that medications may not be up to date on this document. Alwaysverify current medications with the patient. diclofenac sodium EC (Voltaren) 75 MG tablet Diclofenac Sodium 75 MG Oral Tablet Delayed Release QTY: 60 tablet Days: 30 Refills: 0 Written: 06/14/23 Patient Instructions: 1 po bid prn do not take with other nsaids 4 Active pregabalin (Lyrica) 150 MG capsule 2 times daily 4 Active albuterol HFA (Proventil; Ventolin; Proair) 108 (90 Base) MCG/ACT inhaler 3 Active HYDROcodone-aceta minophen (Mouthcard) 10-325 MG tablet 4 Active albuterol-ipratro pium (Duo-Neb) 0.5-2.5 (3) MG/3ML nebulizer solution 3 Active omeprazole (PriLOSEC) 20 MG capsule 5 Active methylPREDNISolon e (Medrol Dosepak) 4 MG tabletIndications :S/P lumbar microdiscectomy,L umbar radiculopathy Take by mouth as directed Take as directed by mouth per package instructions. 21 tablet 5 Active methocarbamol (Robaxin) 750 MG tabletIndications :S/P lumbar microdiscectomy,L umbar radiculopathy Take 1 (one) tablet by mouth 3 times daily as needed for Muscle Spasms 42 tablet 5 Active Active Problems No known active problems Encounters Date Type Department Care Team Description 08/21/2024 2:00 PM CDT Office Visit [facility] [address] [place] [address] Pardeep Lambert MD Chronic midline low back pain, unspecified whether sciatica present (Primary Dx) 08/21/2024 Travel 07/08/2024 4:57 PM FLEET SERVICE CLERK - 07/08/2024 11:59 PM FLEET SERVICE CLERK Hospital Encounter [facility] MRI [address] [place] [address] Pardeep Lambert MD Discharge Disposition: Home or Self Care from Last 3 Months Social History Tobacco Use Types Packs/Day Years Used Date Smoking Tobacco: Every Day Cigarettes Smokeless Tobacco: Never Tobacco Cessation:Ready to Q uit: Yes; Counseling Given: Yes Alcohol Use Standard Drinks/Week Comments Not Currently [...] at Not on file Legal Sex Male 5:38 AM FLEET SERVICE CLERK Gender Identity Not on file Sexual Orientation Not on file Last Filed Vital Signs Vital Sign Reading Time Taken Comments Blood Pressure 125/75 08/21/2024 2:14 PM CDT Pulse 97 08/21/2024 2:14 PM CDT Temperature 36.8 C (98.2 F) 08/21/2024 2:14 PM CDT Respiratory Rate 18 04/06/2024 12:48 PM FLEET SERVICE CLERK Oxygen Saturation 98% 08/21/2024 2:14 PM CDT Inhaled Oxygen Concentration - - Weight 142.9 kg (315 lb) 08/21/2024 2:14 PM CDT Height 172.7 cm (5' 8) 08/21/2024 2:14 PM CDT Body Mass Index 47.9 08/21/2024 2:14 PM CDT Plan of Treatment Health Maintenance Due Date Last Done Comments HIV SCREENING 2009 HEPATITIS C SCREENING 10/21/2012 DTAP/TDAP/TD VACCINES (1 - Tdap) 2013 HEPATITIS B VACCINE (1 of 3 - 19+ 3-dose series) 2013 PNEUMOCOCCAL VACCINE (1 of 2 - PCV) 2013 COVID-19 VACCINE (1 - 2023-2 5 season) 2024 DEPRESSION SCREENING 05/03/2024 INFLUENZA VACCINE (Season Ended) 2025 ZOSTER VACCINE (1 of 2) 2044 HIB VACCINE Aged Out No longer eligi ble based on patient's age to complete this topic HPV VACCINE Aged Out No longer eligi ble based on patient's age to complete this topic MENINGOCOCCAL (Group B) VACC INE SHARED DECISION-MAKING Aged Out No longer eligibl e based on patient's age to complete this topic MENINGOCOCCAL GROUPS A/C/Y/W VACCINE Aged Out No longer eligible b ased on patient's age to complete this topic Procedures Procedure Name Priority Date/Time Associated Diagnosis Comments MRI LUMBAR SPINE WWO CONTRAST Routine 07/08/2024 5:17 PM FLEET SERVICE CLERK S/P lumbar microdiscectomy Lumbar radiculopathy from Last 3 Months Results * MRI Lumbar Spine Wwo Contrast (07/08/2024 5:17 PM FLEET SERVICE CLERK) Anatomical Region Laterality Modality Spine Magnetic Resonan [...] DATE/TIME OF EXAM: 07/08/2024 5:21 PM, LOCATION [facility] INDICATION: Z98.890: S/P lumbar microdiscectomy M54.16: [...] DATE/TIME OF EXAM: 07/08/2024 5:21 PM, LOCATION [facility] INDICATION: Z98.890: S/P lumbar microdiscectomy M54.16: [...] 2:45 PM Pardeep Lambert MD MR ORDERABLES Final Re sult from Last 3 Months Insurance [facility] Care Teams In Mold Coater Relationship Specialty Start Date End Date Tavares Sloan PA [address] [place] [phone] PCP - General Physician Second Cook And Baker 06/06/24
--- NOTE | 2024-10-08 17:21 | ED_ITS ---
HPI - Chest Pain General Chief Complaint: Chest Pain Stated Complaint: chest pain Time Seen by Provider: 10/08/24 17:13 Source: patient Mode of arrival: ambulatory Limitations: no limitations History of Present Illness HPI narrative: Patient is a 28-year-old male with chest pain and lots of stress at home today. He has been having chest pain all day. It is midsternal epigastric region. Pain is sharp. It does not radiate. he has shortness of breath and known COPD. MD complaint: chest pain Pertinent past history: other ( COPD) Onset (ago): day(s) ( 1) Timing of current episode: constant and still present Prior episodes: No Onset: during rest and during exertion Pain location: substernal and epigastric Pain radiation: none Quality: sharp Relieving factors: nothing Exacerbating factors: stress Context: other ( patient's is present and said there was lots of stress in the house at this time and he is having chest pain all day. He also has COPD and shortness of breath.) Associated symptoms: sense of impending doom Treatment prior to arrival: none Risk Factors Coronary artery disease risk factors: none Thoracic aortic dissection risk factors: none Related Data Home Medications ?Medication ?Instructions ?Recorded ?Confirmed ?Last Taken ?Type diclofenac sodium 75 mg 75 mg PO BID PRN Pain 12/01/23 07/10/24 Unknown History tablet,delayed release pregabalin 150 mg capsule 150 mg PO DAILY pain 12/01/23 07/10/24 Unknown History methocarbamol 750 mg tablet 750 mg PO DAILY 07/10/24 07/10/24 Unknown History omeprazole 20 mg capsule,delayed 20 mg PO DAILY 07/10/24 07/10/24 Unknown History release Allergies Allergy/AdvReac Type Severity Reaction Status Date / Time codeine Allergy Rash Verified 10/08/24 17:14 Penicillins Allergy Unknown Verified 10/08/24 17:14 Review of Systems 2 Review of Systems: All systems reviewed & are unremarkable except as noted in HPI and below Constitutional: Constitutional: Reports no additional constitutional complaints Eyes: Eyes: Reports no additional eye complaints ENT: Reports system reviewed and no additional complaints, except as documented Cardiovascular: Cardiovascular: Reports no additional cardiovascular complaints Respiratory: Respiratory: Reports no additional respiratory complaints Gastrointestinal: Gastrointestinal: Reports no additional gastrointestinal complaints Genitourinary: Genitourinary: Reports no additional male genitourinary complaints Musculoskeletal: Musculoskeletal: Reports no additional musculoskeletal complaints Integumentary/Breasts: Skin/Breast: Reports system reviewed and no additional complaints, except as docu Neurologic: Reports system reviewed and no additional complaints, except as documented Psychiatric: Psychiatric: Reports no additional psychiatric complaints Endocrine: Endocrine: Reports no additional endocrine complaints Hematologic/Lymphatic: Hematologic/Lymphatic: Reports no additional hematologic/lymphatic complaints Allergic/Immunologic: Allergic/Immunologic: Reports no additional allergic/immunologic complaints [facility] Past Medical History Medical History COPD (chronic obstructive pulmonary disease) Surgical History Surgical History History of dental surgery History of tonsillectomy Wrist fracture Leg fracture, left Family History Family History Mother Diabetes mellitus Social History Social History Smoking packs per day: 3 Smoking cigarettes per day: 60.0 Years smoked: 10 Smoking pack-years: 30.00 Smoking status: Current every day smoker Alcohol intake: never Alcohol use details: occasional Substance use type: marijuana Other substance usage details: once weekly Living arrangements: with family 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 Gender identity (if verbalized by the patient): Male Exam 2 Const: General: healthy appearing Nutritional Appearance: well nourished Orientation/consciousness: patient oriented x3 Limitations: no limitations HENMT: Head: normal to inspection Ears: external ears normal F shaun/Nose/Sinus: Normal external nose present Eyes: Conjunctivae: conjunctivae normal Pupils: Equal, round and reactive pupils present EOM: EOMs intact bilaterally Neck: Neck: normal visual inspection Chest: Chest palpation & inspection: normal inspection of the chest Resp: Effort & Inspection: normal respiratory effort and not labored A uscultation: clear to auscultation bilaterally and no crackles Cardio: Rate: regular rate Rhythm: regular rhythm Heart sounds: no murmurs GI: Inspection: non-distended GI Palp: Yes Soft to palpation and No Tenderness to palpation present (GI) Auscultation: normal bowel sounds : General: Yes bladder normal to palpation Back/Spine/Pelvis: Back: no CVA tenderness Skin: General skin exam: normal color Rashes: no rashes Wounds: no wounds Neuro: General: patient oriented x3 and moves all extremities Cranial nerves: Yes Nystagmus not present Speech: normal speech Gait exam (Neuro): Normal gait present Extrem: General: normal to inspection Psych: Mental Status: mental status grossly normal Affect: normal affect Attitude: cooperative Course Vital Signs Vital signs: Vital Signs Temperature 37.4 C 10/08/24 17:21 Pulse Rate 94 10/08/24 17:21 Respiratory Rate 20 10/08/24 17:21 Blood Pressure 144/71 H 10/08/24 17:21 Pulse Oximetry 98 10/08/24 17:21 Oxygen Delivery Room Air 10/08/24 17:21 Temperature 37.4 C 10/08/24 17:21 Pulse Rate 94 10/08/24 17:21 Respiratory Rate 20 10/08/24 17:21 Blood Pressure 144/71 H 10/08/24 17:21 Pulse Oximetry 99 10/08/24 17:24 Oxygen Delivery Room Air 10/08/24 17:24 MDM - Chest Pain MDM Narrative Medical decision making narrative: Patient is a 28-year-old male with chest pain and loss of stress today. We will do cardiovascular workup at this time. Lab Data Attestation: I reviewed the patient's lab results. 10/08/24 17:45 10/08/24 17:45 Labs: Lab Results 10/08/24 10/08/24 Range/Units 17:43 17:45 WBC 10.6 (4.8-10.8) K/mm3 RBC 5.66 (4.70-6.10) M/mm3 Hgb 16.3 (14.0-18.0) g/dL Hct 50.2 (40.0-54.0) % MCV 88.7 (78.0-102.0) fL MCH 28.8 (27.0-31.0) pg MCHC 32.5 (32-36) g/dL RDW 14.0 (11.6-14.4) % Plt Count 123 L (150-420) K/mm3 MPV 12.0 H (8.7-11.0) fl Immature Gran % (Auto) 0.5 H (0.0-0.0) % Neut % (Auto) 66.5 (50.0-70.0) % Lymph % (Auto) 22.9 (18.0-42.0) % [place] % (Auto) 7.7 (2.0-11.0) % Eos % (Auto) 1.7 (1.0-6.0) % Baso % (Auto) 0.7 (0.0-1.0) % Lymph # (Auto) 2.43 (1.10-4.50) K/mm3 [place] # (Auto) 0.82 (0.10-0.90) K/mm3 Eos # (Auto) 0.18 (0.02-0.50) K/mm3 Baso # (Auto) 0.07 (0.00-0.10) K/mm3 Abs Immat Gran (auto) 0.05 H (0.00-0.00) K/mm3 Absolute Neuts (auto) 7.04 (1.70-7.20) K/mm3 Absolute Nucleated RBC 0.00 (0.00-0.00) K/mm3 Nucleated RBC % 0.0 (0-0.0) % D-Dimer 0.28 (0.19-0.50) mg/L Sodium 138 (137-145) mmol/L Potassium 4.0 (3.4-5.0) mmol/L Chloride 105 (98-107) mmol/L Carbon Dioxide 28 (22-30) mmol/L Anion Gap 5 (4-12) mmol/L BUN 15 (9-20) mg/dL Creatinine 1.07 (0.7-1.3) mg/dL Estim Creat Clear Calc 125 ml/min Estimated GFR > 60 (59 - ) Glucose 104 (65-110) mg/dL Calculated Osmolality 286 (285-295) mOsm/kg Calcium 9.3 (8.4-10.2) mg/dL Total Bilirubin 0.5 (0.2-1.3) mg/dL AST 40 (17-59) U/L ALT 45 (6-50) U/L Alkaline Phosphatase 77 (38-126) U/L Troponin I < 0.012 (0.000-0.034) ng/mL NT-Pro-B Natriuret Pep 33 (19.9-100) pg/mL Total Protein 8.2 (6.3-8.2) g/dL Albumin 4.5 (3.5-5.1) g/dL Lipase 184 (23-300) U/L Imaging Data Attestation: I personally reviewed and interpreted this imaging study as follows: Radiologist's impression: Chest x-ray is negative for acute process ECG Data EKG #1: Attestation: I personally reviewed and interpreted this ECG as follows: ECG completion date: 10/08/24 ECG completion time: 17:38 EKG Interpretation: normal rate, sinus rhythm, no ectopy, non-specific ST changes, normal QRS, normal QT and NL axis Discharge Plan Discharge Clinical Impression: COPD exacerbation, Atypical chest pain Patient Disposition: Home Condition: Stable Instructions: Chest Pain (ED), COPD (Chronic Obstructive Pulmonary Disease) (DC) Patient Language: Tajik Prescriptions: New methylprednisolone [Medrol (Alex)] 4 mg tablets,dose pack See Rx Instructions .ROUTE .COMPLEX Qty: 21 0RF Rx Instructions: orally per package directions azithromycin 250 mg tablet See Rx Instructions .ROUTE .COMPLEX Qty: 6 0RF Rx Instructions: For 250 mg dose pack: take 500 mg today (day 1), then 250 mg for 4 days (days 2-5) No Action diclofenac sodium 75 mg tablet,delayed release (DR/EC) 75 mg PO BID PRN (Reason: Pain) pregabalin 150 mg capsule 150 mg PO DAILY methocarbamol 750 mg tablet 750 mg PO DAILY omeprazole 20 mg capsule,delayed release(DR/EC) 20 mg PO DAILY Follow-up/Referrals: Luther,KENDRA Chapin [Primary Care Provider] - Time of Disposition: 18:43
--- OUTSIDE RECORDS SUMMARY | 2024-10-08 17:42 | XMS_ITS | Clinical Summary ---
Author Organization [facility] Address [address] [place] [address] Care Team Providers Care Director College Name Role Phone Tavares Sloan Primary Care Provider [phone] Source Comments [facility],non-owned Affiliates and Associated Physician Practices is amultiple site organization consisting of ambulatory clinics and hospital sitesin [place], [place], [place] and [place]. This disclosure is being madepursuant to the Care Everywhere program and may not contain all information available regarding this patient. Last updated 18.[facility] Allergies Active Allergy Reactions Criticality Noted Date [...] Base) MCG/ACT inhaler 3 Active HYDROcodone-aceta minophen (Sublette) 10-325 MG tablet 4 Active albuterol-ipratro pium [...] Visit [facility] - [facility] [address] [place] [address] Pardeep Lambert MD Chronic midline low back pain, unspecified whether sciatica present (Primary Dx) 08/21/2024 Travel 07/08/2024 4:57 PM PACKING AND SHIPPING CLERK - 07/08/2024 11:59 PM PACKING AND SHIPPING CLERK Hospital Encounter [facility] MRI [address] [place] [address] Pardeep Lambert MD Discharge Disposition: Home or [...] on file Legal Sex Male 5:38 AM PACKING AND SHIPPING CLERK Gender Identity Not on file Sexual Orientation Not on file Last Filed Vital Signs Vital Sign Reading Time Taken Comments Blood Pressure 125/75 08/21/2024 2:14 PM CDT Pulse 97 08/21/2024 2:14 PM CDT Temperature 36.8 C (98.2 F) 08/21/2024 2:14 PM CDT Respiratory Rate 18 04/06/2024 12:48 PM PACKING AND SHIPPING CLERK Oxygen Saturation 98% 08/21/2024 2:14 PM [...] SPINE WWO CONTRAST Routine 07/08/2024 5:17 PM PACKING AND SHIPPING CLERK S/P lumbar microdiscectomy Lumbar radiculopathy from Last 3 Months Results * MRI Lumbar Spine Wwo Contrast (07/08/2024 5:17 PM PACKING AND SHIPPING CLERK) Anatomical Region Laterality Modality Spine Magnetic [...] OF EXAM: 07/08/2024 5:21 PM, LOCATION [facility] INDICATION: Z98.890: S/P lumbar microdiscectomy M54.16: [...] OF EXAM: 07/08/2024 5:21 PM, LOCATION [facility] INDICATION: Z98.890: S/P lumbar microdiscectomy M54.16: [...] from Last 3 Months Insurance [facility] Care Teams Director College Relationship Specialty Start Date End Date Tavares Sloan PA [address] [place] [phone] PCP - General Physician Stratigraphy Teacher 06/06/24
--- OUTSIDE RECORDS SUMMARY | 2024-10-08 17:42 | XMS_ITS | Clinical Summary ---
Author Organization [facility] Address [facility] [place] [address] Care Team Providers Care Paleontology Teacher Name Role Phone EtelvinaTavares hou George [facility] Primary Care Provider [phone] Social History Tobacco Use Types Packs/Day Years Used Date Smoking Tobacco: Never Assessed Sex and Gender Information Value Date Recorded Sex Assigned at Not on file Legal Sex Male 3:10 PM SHAREPOINT MANAGER Gender Identity Not on file Sexual Orientation [...] Insurance [employer] Care Teams Paleontology Teacher Relationship Specialty Start Date End Date Tavares Sloan PAC [address] [place] [address] PCP - General Physician Accounts Payables Clerk 06/15/23
[2024-10-08 17:49] LABS: Basophils Absolute Auto 0.07 K/mm3 (0.00-0.10); Basophils Percent Auto 0.7 % (0.0-1.0); Eosinophils Absolute Auto 0.18 K/mm3 (0.02-0.50); Eosinophils Percent Auto 1.7 % (1.0-6.0); Hematocrit 50.2 % (40.0-54.0); Hemoglobin 16.3 g/dL (14.0-18.0); Immature Granulocyte Absolute 0.05 K/mm3 (0.00-0.00); Immature Granulocyte Percent A 0.5 % (0.0-0.0); Lymphocytes Absolute Auto 2.43 K/mm3 (1.10-4.50); Lymphocytes Percent Auto 22.9 % (18.0-42.0); Mean Corpuscular HGB Conc 32.5 g/dL (32-36); Mean Corpuscular Hemoglobin 28.8 pg (27.0-31.0); Mean Corpuscular Volume 88.7 fL (78.0-102.0); Monocytes Absolute Auto 0.82 K/mm3 (0.10-0.90); Monocytes Percent Auto 7.7 % (2.0-11.0); Neutrophils Absolute Auto 7.04 K/mm3 (1.70-7.20); Neutrophils Percent Auto 66.5 % (50.0-70.0); Platelet Count Result 123 K/mm3 (150-420); Red Blood Count 5.66 M/mm3 (4.70-6.10); White Blood Count 10.6 K/mm3 (4.8-10.8)
[2024-10-08 17:59] LABS: Alanine Aminotransferase 45 U/L (6-50); Albumin Level 4.5 g/dL (3.5-5.1); Alkaline Phosphatase 77 U/L (38-126); Anion Gap 5 mmol/L (4-12); Aspartate Amino Transferase 40 U/L (17-59); Bilirubin,Total 0.5 mg/dL (0.2-1.3); Blood Urea Nitrogen 15 mg/dL (9-20); Calcium 9.3 mg/dL (8.4-10.2); Carbon Dioxide 28 mmol/L (22-30); Chloride 105 mmol/L (98-107); Estimated CRCL calculation 125 ml/min; Estimated Glomerular Filt Rate > 60; Glucose 104 mg/dL (65-110); Lipase 184 U/L (23-300); Osmolality Calculated 286 mOsm/kg (285-295); Sodium 138 mmol/L (137-145); Total Protein 8.2 g/dL (6.3-8.2)
[2024-10-08 18:11] LABS: NT Pro B Type Natriuretic Pept 33 pg/mL (19.9-100); Troponin I < 0.012 ng/mL (0.000-0.034)
[2024-10-08] MEDS: predniSONE 20 MG TABLET 40 MG PO (18:25)
[2024-10-08] MEDS: IPRATROPIUM 0.5 MG/ALBUTEROL SULFATE 2.5 MG AMPUL.NEB 3 ML INHALATION (18:25)
[2024-10-08 18:35] LABS: D Dimer 0.28 mg/L (0.19-0.50)
== END 2024-10-08 18:45 | disposition home or self-care (01) ==
PROVIDERS: Emergency Provider Emergency Medicine; PCP Physician Assistant
DX: J44.1 Chronic obstructive pulmonary disease with (acute) exacerbation (principal); F17.210 Nicotine dependence, cigarettes, uncomplicated
CPT/HCPCS: 36415; 71045; 80053; 83690; 83880; 84484; 85025; 85380; 93005; 99284; J7512